=== PATIENT | female | born 1990 | race American Indian/Alaskan Native ===

== ENCOUNTER 2022-04-12 01:06 | Observation (INO) | payer OTHER, MEDICAID ==
[2022-04-12] MEDS ORDERED: SODIUM CHLORIDE 0.9% 1,000 ML IV STA ×3 (01:15→03:04)
[2022-04-12] MEDS ORDERED: HYDROmorphone 1 MG/ML CARPUJECT IVP STA ×2 (01:15→02:51)
[2022-04-12] MEDS ORDERED: KETOROLAC 30 MG/ML VIAL IVP STA (01:15)
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
[2022-04-12 01:58] LABS: HCG,QUALITATIVE BLOOD NEGATIVE
[2022-04-12 02:05] LABS: BASOPHILS # (AUTO) 0.1 10^3/uL (0.0-0.1); BASOPHILS % (AUTO) 0.9 %; EOSINOPHILS # (AUTO) 0.1 10^3/uL (0.0-0.7); EOSINOPHILS % (AUTO) 0.9 %; HCT - HEMATOCRIT 40.2 % (37.0-47.0); HGB - HEMOGLOBIN 12.9 g/dL (12.0-16.0); LYMPHOCYTES # (AUTO) 1.4 10^3/uL (1.5-3.5); MEAN CORPUSCULAR HEMOGLOBIN 30.4 pg (27.0-31.0); MEAN CORPUSCULAR HGB CONC 32.1 g/dL (32.0-36.0); MEAN CORPUSCULAR VOLUME 94.8 fL (81.0-99.0); MEAN PLATELET VOLUME 9.1 fL (7.9-10.8); MONOCYTES # (AUTO) 0.5 10^3/uL (0.0-1.0); MONOCYTES % (AUTO) 5.5 %; NEUTROPHILS # (AUTO) 6.2 10^3/uL (1.5-6.6); NEUTROPHILS % (AUTO) 75.5 %; PLT - PLATELET COUNT 322 10^3/uL (130-450); RED BLOOD COUNT 4.24 10^6/uL (4.20-5.40); RED CELL DISTRIBUTION WIDTH 14.6 % (12.0-15.0); WHITE BLOOD COUNT 8.2 x10^3/uL (4.8-10.8)
[2022-04-12] MEDS ORDERED: PROPOFOL 200 MG/20 ML VIAL IVP STA (02:09)
[2022-04-12 02:14] LABS: ALBUMIN 4.7 g/dL (3.2-5.5); ALBUMIN/GLOBULIN RATIO 1.3 (1.0-2.2); BILIRUBIN,TOTAL 0.3 mg/dL (0.2-1.0); CALCIUM 8.9 mg/dL (8.5-10.3); CREATININE 0.7 mg/dL (0.4-1.0); TOTAL PROTEIN 8.2 g/dL (6.7-8.2)
[2022-04-12] MEDS ORDERED: PROPOFOL 200 MG/20 ML VIAL IVP ONE (02:33)
[2022-04-12 02:55] LABS: B. PARAPERTUSSIS- RESP PCR PAN NOT DETECTED; B. PERTUSSIS- RESP PCR PANEL NOT DETECTED; C. PNEUMONIAE- RESP PCR PANEL NOT DETECTED; CORONAVIRUS 229E-RESP PCR NOT DETECTED; CORONAVIRUS HKU1-RESP PCR NOT DETECTED; CORONAVIRUS NL63-RESP PCR NOT DETECTED; CORONAVIRUS OC43-RESP PCR NOT DETECTED; HUMAN METAPNEUMOVIRUS NOT DETECTED; INFLUENZA A- RESP PCR PANEL NOT DETECTED; INFLUENZA B - RESP PCR PANEL NOT DETECTED; M. PNEUMONIAE- RESP PCR PANEL NOT DETECTED; PARAINFLUENZA VIRUS 1 NOT DETECTED; PARAINFLUENZA VIRUS 2 NOT DETECTED; PARAINFLUENZA VIRUS 3 NOT DETECTED; PARAINFLUENZA VIRUS 4 NOT DETECTED; RHINOVIRUS/ENTEROVIRUS NOT DETECTED; RSV- RESP PCR PANEL NOT DETECTED; SARS-CoV-2 -RESP PCR PANEL NOT DETECTED
[2022-04-12] MEDS: HYDROmorphone 1 MG/ML CARPUJECT IVP SCH ×7 (04:43→15:49)
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
--- NOTE | 2022-04-12 08:25 | XRAY Report ---
PROCEDURE: Chest 1 View X-Ray INDICATIONS: chest tube placement TECHNIQUE: One view of the chest was acquired. COMPARISON: Rib x-ray 04/12/2022 FINDINGS: Surgical changes and devices: Right chest tube is present overlying the right midlung. Lungs and pleura: There is persistent although less prominent appearance of pneumothorax. Mediastinum: Mediastinal contours appear normal. Heart size is normal. Bones and chest wall: No suspicious bony lesions. Likely right ninth rib fracture, better visualized on prior exam. Overlying soft tissues appear unremarkable. IMPRESSION: Minimal residual pneumothorax. Reviewed by: Vira Ely MD on 04/12/2022 8:23 AM PDT Approved by: Vira Ely MD on 04/12/2022 8:23 AM PDT Station ID: [id number]
[2022-04-12] MEDS ORDERED: ONDANSETRON 4 MG/2 ML VIAL IVP STA (08:49)
[2022-04-12] MEDS ORDERED: ACETAMINOPHEN 325 MG TABLET PO PRN (10:01)
[2022-04-12] MEDS ORDERED: DROPERIDOL 5 MG/2 ML VIAL IVP STA (10:12)
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
[2022-04-12] MEDS: SODIUM CHLORIDE FLUSH 0.9% 10 ML SYRINGE IVP SCH ×2 (15:49→23:38)
[2022-04-12] MEDS: HYDROcod/ACETAM 5/325 MG TABLET PO PRN (19:20)
[2022-04-12] MEDS: IBUPROFEN 600 MG TABLET PO PRN (19:20)
[2022-04-12] MEDS: HYDROmorphone 1 MG/ML CARPUJECT IVP PRN ×2 (20:02→23:37)
[2022-04-12] MEDS: SODIUM CHLORIDE FLUSH 0.9% 10 ML SYRINGE IVP PRN (20:03)
[2022-04-13] MEDS: SODIUM CHLORIDE FLUSH 0.9% 10 ML SYRINGE IVP PRN ×5 (02:12→12:06)
[2022-04-13] MEDS: HYDROmorphone 1 MG/ML CARPUJECT IVP PRN ×9 (02:12→21:15)
[2022-04-13] MEDS: HYDROcod/ACETAM 5/325 MG TABLET PO PRN (03:01)
[2022-04-13] MEDS: IBUPROFEN 600 MG TABLET PO PRN (03:02)
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
[2022-04-13] MEDS ORDERED: polyethylene glycoL 3350 17 GM PACKET PO PRN (08:07)
[2022-04-13] MEDS ORDERED: LIDOCAINE PATCH 5% TOP PRN (08:09)
[2022-04-13] MEDS: ONDANSETRON 4 MG/2 ML VIAL IVP PRN ×2 (08:24→14:50)
[2022-04-13] MEDS: ACETAMINOPHEN 325 MG TABLET PO SCH ×4 (08:27→21:09)
[2022-04-13] MEDS: FAMOTIDINE 20 MG TABLET PO SCH ×2 (08:27→21:09)
[2022-04-13] MEDS: traMADol 50 MG TABLET PO PRN ×3 (08:27→16:48)
[2022-04-13] MEDS: DOCUSATE SODIUM 100 MG CAPSULE PO SCH (08:27)
[2022-04-13] MEDS: SODIUM CHLORIDE FLUSH 0.9% 10 ML SYRINGE IVP SCH ×2 (08:28→17:42)
[2022-04-13] MEDS: KETOROLAC 30 MG/ML VIAL IVP SCH ×2 (12:06→19:09)
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
[2022-04-13] MEDS ORDERED: PROCHLORPERAZINE 10 MG/2 ML VIAL IVP PRN (17:32)
[2022-04-14] MEDS: KETOROLAC 30 MG/ML VIAL IVP SCH ×3 (00:04→12:22)
[2022-04-14] MEDS: SODIUM CHLORIDE FLUSH 0.9% 10 ML SYRINGE IVP SCH ×3 (00:05→16:23)
[2022-04-14] MEDS: ACETAMINOPHEN 325 MG TABLET PO SCH ×5 (00:05→16:22)
[2022-04-14] MEDS: SODIUM CHLORIDE FLUSH 0.9% 10 ML SYRINGE IVP PRN ×3 (02:01→15:02)
[2022-04-14] MEDS: HYDROmorphone 1 MG/ML CARPUJECT IVP PRN ×5 (02:01→15:01)
[2022-04-14] MEDS: traMADol 50 MG TABLET PO PRN ×2 (06:13→15:01)
--- NOTE | 2022-04-14 07:42 | PROVIDER PROGRESS NOTE ---
Subjective - General Admit Date: 04/12/22 Procedure Date: 04/12/22 Post Op Days: 2 Procedure Performed: Right thoracostomy tube - Review of Systems Wound/Incisions: positive: Dressing dry and intact Drain Type: Right Thoravent Drain Output Description: No air leak seen General: positive: No symptoms HEENT: positive: No symptoms Pulmonary: positive: No symptoms Cardiovascular: positive: No symptoms, Palpitations Gastrointestinal: positive: Constipation Objective - Patient Data Vital Signs: Vital Signs x48h Temp Pulse Resp BP Pulse Ox 04/14/22 05:00 98.2 F 70 18 99/57 L 98 04/13/22 23:45 98.4 F 71 18 101/61 96 Weight: Weight 04/12/22 04/13/22 04/14/22 23:59 23:59 23:59 Weight (kg) 70.307 kg Intake & Output: Intake and Output Totals x24h 04/12/22 04/13/22 04/14/22 23:59 23:59 23:59 Intake Total 3910 2830 800 Output Total 1150 3375 350 Balance 2760 -545 450 - Lab Results Lab Results: 04/12/22 01:24 04/12/22 01:24 - Current Medications Current Medications: Current Medications Generic Name Dose Route Start Last Admin Trade Name Freq PRN Reason Stop Dose Admin Acetaminophen 650 mg 04/13/22 09:00 04/14/22 05:45 Acetaminophen 325 Mg Tablet PO 650 mg Q4HR NALINI Administration Docusate Sodium 100 mg 04/13/22 09:00 04/13/22 08:27 Docusate Sodium 100 Mg Capsule PO 100 mg DAILY NALINI Administration Famotidine 20 mg 04/13/22 09:00 04/13/22 21:09 Famotidine 20 Mg Tablet PO 20 mg BID NALINI Administration Hydromorphone HCl 1 mg 04/12/22 17:20 04/14/22 06:56 Hydromorphone 1 Mg/Ml Carpuject IVP 1 mg Q2H PRN Administration PAIN Ketorolac Tromethamine 30 mg 04/13/22 12:00 04/14/22 05:45 Ketorolac 30 Mg/Ml Vial IVP 04/14/22 12:01 30 mg Q6HR NALINI Administration Ondansetron HCl 4 mg 04/13/22 08:08 04/13/22 14:50 Ondansetron 4 Mg/2 Ml Vial IVP 4 mg Q6HR PRN Administration Nausea / Vomiting Prochlorperazine Edisylate 10 mg 04/13/22 17:32 04/13/22 17:41 Prochlorperazine 10 Mg/2 Ml Vial IVP 10 mg Q6HR PRN Administration Nausea / Vomiting Sodium Chloride 10 ml 04/12/22 10:01 04/14/22 02:01 Sodium Chloride Flush 0.9% 10 Ml Syringe IVP 10 ml PRN PRN Administration NEEDED PER PROVIDER ORDERS Sodium Chloride 10 ml 04/12/22 17:00 04/14/22 00:05 Sodium Chloride Flush 0.9% 10 Ml Syringe IVP 10 ml 0100,0900,1700 NALINI Administration Tramadol HCl 50 mg 04/13/22 08:06 04/14/22 06:13 Tramadol 50 Mg Tablet PO 50 mg Q4HR PRN Administration PAIN - Physical Exam General Appearance: positive: No acute distress Eyes Bilateral: positive: Normal inspection Respiratory: positive: No respiratory distress, Breath sounds nml, Other (Mild right chest wall tenderness to palpation; No flail; Thoravent secured to right chest) Skin: positive: Other (Ecchymosis left forehead resolving) Neurologic/Psychiatric: positive: Oriented x3 ABX Reporting Has patient been on IV antibiotics over the past 48 hours?: No Impression/Plan - Problem List Problem List: Assessment: 1) Right traumatic pneumothorax. Clinically improved. I think it would be prudent to leave the Thoravent in until next Monday where she can be re-qi luated in the surgery office for possible removal. 2) Right 9th rib fracture - pain under better control with Tramadol/Tylenol 3) Constipation - persists Plan: 1) Discharge to home 2) Tramadol/Tylenol for chest wall pain control; MOM/Miralax for constipation 3) Follow-up Monday in the surgery clinic for possible Thoravent removal. 4) Off work for 10-14 days (note written) Cj Naranjo MD General Surgery Service
--- NOTE | 2022-04-14 07:49 | Discharge Plan ---
Discharge Plan Problem Reviewed?: Yes Disposition: Home, Self Care Condition: Good Diet: Regular Activity Restrictions: Activity as Tolerated Shower Restrictions: Yes (Try to keep Thoravent dry) Assessment: Assessment: 1) Right traumatic pneumothorax - resolving with pleural catheter/Thoravent device 2) Right 9th rib fracture - Pain under control with oral medication 3) Left forehead contusion - resolving 4) Constipation - on laxatives Additional Instructions or Follow Up instructions: Follow up in the General Surgery Clinic next Monday to determine if the chest catheter can be removed. If you have any trouble with the chest wall catheter before then, either call the surgery clinic or come to the ED for evaluation. No Smoking: If you smoke, Please STOP! Call for help. Follow-up with: Gee Nix MD [Provider Admit Priv/Credential] -
--- NOTE | 2022-04-14 08:06 | HISTORY & PHYSICAL EXAMINATION ---
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 : reports: None HEENT: reports: None Psych: reports: None Musculoskeletal: reports: None Derm: reports: Other MRSA Hx?: No - Family & Social History Living arrangement: At home - Substance History Use: Uses substance without health or social issues: Alcohol Abuse: Recurrent use of substance despite neg consequences: Alcohol Tobacco Details: E-Cigarettes, Other (Just quit smoking cigarettes for the second time.) - POLST POLST Status: Full Code Meds/Allgy - Home Medications Home Medications: Ambulatory Orders Medication Instructions Recorded Confirmed Acetaminophen [Tylenol] 650 mg PO Q4HR tab 04/14/22 Lidocaine Patch 5% [Lidoderm Patch] 1 patch TOP DAILY PRN patch 04/14/22 polyethylene glycoL 3350 [Miralax] 17 gm PO DAILY PRN packet 04/14/22 traMADol [Ultram] 50 mg PO Q4HR PRN #10 tab 04/14/22 - Allergies Allergies/Adverse Reactions: Allergies Allergy/AdvReac Type Severity Reaction Status Date / Time oxycodone Allergy Unknown Verified 04/12/22 01:15 Penicillins Allergy Unknown Verified 04/12/22 01:15 Skittles Allergy Hives Verified 04/12/22 17:32 Exam - Vital Signs Vital Signs: Vital Signs x48h Temp Pulse Resp BP Pulse Ox 04/14/22 05:00 98.2 F 70 18 99/57 L 98 Conclusion/Plan - Lab Results Lab results reviewed: Yes Fish Bones: 04/12/22 01:24 04/12/22 01:24
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
[2022-04-14] MEDS: FAMOTIDINE 20 MG TABLET PO SCH (09:06)
[2022-04-14] MEDS: DOCUSATE SODIUM 100 MG CAPSULE PO SCH (09:06)
[2022-04-14 15:33] VITALS: BP 109/71
== END 2022-04-14 16:31 | disposition home or self-care (01) ==
LOC: EDUNIT# → ED 01:06 → MS2 10:01
PROVIDERS: ADMIT Surgery; ATTEND Surgery
DX: S27.0XXA Traumatic pneumothorax, initial encounter (principal); S22.31XA Fracture of one rib, right side, initial encounter for closed fracture; S00.83XA Contusion of other part of head, initial encounter; Y04.2XXA Assault by strike against or bumped into by another person, initial encounter; Z20.822 Contact with and (suspected) exposure to COVID-19; F17.290 Nicotine dependence, other tobacco product, uncomplicated; K59.00 Constipation, unspecified
CPT/HCPCS: 32551; 36415; 70450; 71045; 71101; 80053; 80320; 83690; 84703; 85025; 87633; 96361; 96374; 96375; 96376; 99152; 99284; 99285; 99406; A9270; G0378; J1170

== ENCOUNTER → 2022-04-12 | Outpatient (CLI) | payer OTHER, MEDICAID | END | disposition critical access hospital (66) | LOC: EMS 00:42 | DX: R07.81 Pleurodynia (principal); R51.9 Headache, unspecified; Y04.2XXA Assault by strike against or bumped into by another person, initial encounter | CPT/HCPCS: A0425; A0427 ==

== ENCOUNTER 2022-06-05 20:49 | Outpatient (CLI) | payer OTHER, MEDICAID | END 2022-06-05 20:50 | disposition critical access hospital (66) | LOC: EMS 20:49 | DX: F10.129 Alcohol abuse with intoxication, unspecified (principal); S51.812A Laceration without foreign body of left forearm, initial encounter; X58.XXXA Exposure to other specified factors, initial encounter | CPT/HCPCS: A0425; A0429 ==

== ENCOUNTER 2022-06-05 21:07 | Emergency (ER) | payer OTHER, MEDICAID ==
[2022-06-05 21:30] VITALS: BP 133/92
--- NOTE | 2022-06-05 21:57 | ED Physician Documentation ---
History of Present Illness - Stated complaint Stated Complaint: WANTS DETOX - Chief complaint Chief Complaint: MHE - History obtained from History obtained from: Patient, EMS - Additonal information Additional information: 32-year-old woman presents brought in by EMS from an in she is staying at stating that she wants detox. On further questioning patient denies SI/HI/AVH but does state that she is incredibly lonely because she usually spends [place] with her children who are currently in [place]. She states she feels safe in the current place where she is residing. Does endorse drinking alcohol this evening. 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 : None HEENT: None Psych: None Musculoskeletal: None Derm: Other - Past Surgical History Past Surgical History: No - Present Medications Home Medications: Ambulatory Orders Medication Instructions Recorded Confirmed Acetaminophen [Tylenol] 650 mg PO Q4HR tab 04/14/22 Lidocaine Patch 5% [Lidoderm Patch] 1 patch TOP DAILY PRN patch 04/14/22 polyethylene glycoL 3350 [Miralax] 17 gm PO DAILY PRN packet 04/14/22 traMADol [Ultram] 50 mg PO Q4-6H #10 tablet 04/14/22 - Allergies Allergies/Adverse Reactions: Allergies Allergy/AdvReac Type Severity Reaction Status Date / Time oxycodone Allergy Unknown Verified 04/12/22 01:15 Penicillins Allergy Unknown Verified 04/12/22 01:15 Skittles Allergy Hives Verified 04/12/22 17:32 - Social History Does the pt smoke?: No Smoking Status: Current every day smoker Does the pt drink ETOH?: Yes Does the pt have substance abuse?: No - Immunizations Immunizations are current?: Yes - POLST POLST Status: Full Code PD ED PE NORMAL - Vitals Vital signs reviewed: Yes - General General: Alert and oriented X 3, No acute distress, Well developed/nourished - HEENT HEENT: Atraumatic, PERRL, EOMI - Neck Neck: Supple, no meningeal sign - Cardiac Cardiac: RRR - Respiratory Respiratory: No respiratory distress, Clear bilaterally - Abdomen Abdomen: Non tender, Non distended - Derm Derm: Normal color, Warm and dry - Extremities Extremities: No deformity - Neuro Neuro: No motor deficit, No sensory deficit - Psych Psych: Other (intermittently tearful. clinically sober ) Results - Vitals Vitals: Vital Signs - 24 hr 06/05/22 21:17 Temperature 36.3 C L Heart Rate 111 H Respiratory 18 Rate Blood Pressure 133/92 H O2 Saturation 98 Oxygen O2 Source Room air PD Medical Decision Making - ED course ED course: 32-year-old woman presents with depression and alcohol abuse. Ambulatory without difficulty. AO x3. Clinically sober. Safe to discharge home at this time. Denies SI HI AVH. Resources provided and return precautions given. Departure - Departure Disposition: Home, Self Care Clinical Impression: Alcohol abuse, Depression Condition: Stable Instructions: Alcoholism Get Help, ED Depression Comments: You were seen in the emergency department for depression and alcohol addiction. Please follow-up with the resources we provided and return to the emergency department between 9 AM and 5 PM for social work evaluation if you feel that you need it. Return to the emergency department if you have concerns that you are danger to yourself or others or if you do not feel safe. Please follow-up with your primary care provider
== END 2022-06-05 22:01 | disposition home or self-care (01) ==
LOC: EDUNIT# → EDBD → ED 21:07
DX: F32.A Depression, unspecified (principal); F10.10 Alcohol abuse, uncomplicated; F17.200 Nicotine dependence, unspecified, uncomplicated
CPT/HCPCS: 99283

== ENCOUNTER 2022-09-02 18:12 | Emergency (ER) | payer MEDICAID, OTHER ==
--- NOTE | 2022-09-02 18:51 | XRAY Report ---
PROCEDURE: Chest 2 View X-Ray INDICATIONS: pain, short of breath TECHNIQUE: 2 views of the chest were acquired. COMPARISON: 04/13/2022, 04/12/2022. FINDINGS: Surgical changes and devices: None. Lungs and pleura: No pleural effusions or pneumothorax. Streaky opacities can be seen at the lung b ases. Mediastinum: Mediastinal contours are normal. Heart size is normal. Bones and chest wall: No suspicious bony abnormalities. Soft tissues appear unremarkable. IMPRESSION: Likely atelectasis at the lung bases. No recurrent pneumothorax is seen. Reviewed by: Brian Stevens MD on 09/02/2022 5:50 PM AKDORINA Approved by: Brian Stevens MD on 09/02/2022 5:50 PM ALICE Station ID: [id number]
[2022-09-02] MEDS ORDERED: HYDROmorphone 1 MG/ML CARPUJECT IVP STA (19:02)
[2022-09-02] MEDS ORDERED: KETOROLAC 15 MG/ML VIAL IVP STA (19:02)
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
[2022-09-02 19:13] LABS: BASOPHILS # (AUTO) 0.1 10^3/uL (0.0-0.1); BASOPHILS % (AUTO) 1.3 %; EOSINOPHILS # (AUTO) 0.2 10^3/uL (0.0-0.7); EOSINOPHILS % (AUTO) 1.5 %; HGB - HEMOGLOBIN 13.3 g/dL (12.0-16.0); LYMPHOCYTES # (AUTO) 1.5 10^3/uL (1.5-3.5); LYMPHOCYTES % (AUTO) 14.3 %; MEAN CORPUSCULAR HEMOGLOBIN 30.6 pg (27.0-31.0); MEAN CORPUSCULAR HGB CONC 31.7 g/dL (32.0-36.0); MEAN CORPUSCULAR VOLUME 96.8 fL (81.0-99.0); MEAN PLATELET VOLUME 8.5 fL (7.9-10.8); MONOCYTES # (AUTO) 0.8 10^3/uL (0.0-1.0); MONOCYTES % (AUTO) 7.8 %; NEUTROPHILS # (AUTO) 7.8 10^3/uL (1.5-6.6); NEUTROPHILS % (AUTO) 74.8 %; PLT - PLATELET COUNT 487 10^3/uL (130-450); RED BLOOD COUNT 4.34 10^6/uL (4.20-5.40); RED CELL DISTRIBUTION WIDTH 13.9 % (12.0-15.0); WHITE BLOOD COUNT 10.5 x10^3/uL (4.8-10.8)
[2022-09-02] MEDS ORDERED: iohexoL-300 100 ML VIAL ONE (19:14)
[2022-09-02 19:25] LABS: ALBUMIN 4.2 g/dL (3.2-5.5); ALBUMIN/GLOBULIN RATIO 0.9 (1.0-2.2); BILIRUBIN,TOTAL 0.5 mg/dL (0.2-1.0); CALCIUM 9.1 mg/dL (8.5-10.3); CREATININE 0.4 mg/dL (0.4-1.0); ETOH - ETHANOL 171.9 mg/dL; POTASSIUM 4.1 mmol/L (3.5-5.0); TOTAL PROTEIN 8.9 g/dL (6.7-8.2)
[2022-09-02] MEDS ORDERED: diphenhydrAMINE INJ 50 MG/ML VIAL IVP STA (19:44)
[2022-09-02 19:53] LABS: BILIRUBIN,URINE NEGATIVE (NEGATIVE); GLUCOSE, URINE (UA) NEGATIVE (NEGATIVE); KETONES,URINE (UA) NEGATIVE (NEGATIVE); LEUKOCYTE ESTERASE, URINE NEGATIVE (NEGATIVE); NITRITE,URINE NEGATIVE (NEGATIVE); OCCULT BLOOD,URINE NEGATIVE (NEGATIVE); PROTEIN,URINE NEGATIVE (NEGATIVE); UROBILINOGEN,URINE 0.2 (NORMAL) E.U./dL (NORMAL)
[2022-09-02 19:54] LABS: CLARITY,URINE CLEAR (CLEAR)
[2022-09-02] MEDS ORDERED: iohexoL-300 100 ML VIAL IVP ONE (19:54)
[2022-09-02 19:56] LABS: HCG UR QUAL NEGATIVE
--- NOTE | 2022-09-02 20:24 | CT Report ---
PROCEDURE: ANGIO CHEST W/WO INDICATIONS: dyspnea, pe protocol CONTRAST: 100 ML OMNI 300 TECHNIQUE: After the administration of intravenous contrast, 2 mm axial images were acquired from the pulmonary apices to the posterior costophrenic angles during the arterial phase. In addition, 1 mm lung kernel and 5 mm soft tissue kernel reconstructions were performed. 3-dimensional coronal oblique maximum int ensity projection (MIP) reformats, 8 mm axial MIP, and 5 mm coronal and sagittal MPR reformats were t hen performed through the thorax. For radiation dose reduction, the following was used: automated exp osure control, adjustment of mA and/or kV according to patient size. COMPARISON: Chest x-ray 09/02/2022 FINDINGS: Image quality: Excellent. Pulmonary arteries: Pulmonary arteries are normal in size, and demonstrate no intraluminal filling d efects to suggest central pulmonary embolism. Lower Neck: No lymphadenopathy by size criteria. Thyroid: Visualized thyroid demonstrates no discrete nodules. Axillae: No lymphadenopathy by size criteria. Chest Wall: Unremarkable. Bones: Visualized osseous structures demonstrate no suspicious lesions. Lungs and Airways: There are patchy areas of consolidation in the lung bases involving the lower lobe s, medial right middle lobe, and medial left lingula. There are associated small clustered indistinct nodules. Mild bronchial wall thickening also demonstrated in the lower lobes with a few foci of mucu s plugging. The findings are consistent with multifocal pneumonia. The trachea and central airways ar e patent. Pleura: No pneumothorax or pleural effusions. Heart: Heart size is normal. No pericardial effusion. Thoracic Vessels: The thoracic aorta is normal in size. Mediastinum and Patti: No lymphadenopathy by size criteria. Esophagus: No wall thickening. No hiatal hernia. Abdomen: Visualized upper abdominal solid organs appear normal in the early arterial phase of enhanc ement. IMPRESSION: 1. No evidence of pulmonary embolism. 2. Bibasilar consolidation and clustered indistinct nodules most likely represent multifocal pneumoni a. Reviewed by: Brady Almonte MD on 09/02/2022 8:23 PM PDT Approved by: Brady Almonte MD on 09/02/2022 8:23 PM PDT Station ID: [id number]
[2022-09-02] MEDS ORDERED: HYDROcod/ACET 5/325 Prepack 4 PO STA (20:45)
[2022-09-02] MEDS ORDERED: DOXYCYCLINE 100 MG TABLET PO STA (20:45)
[2022-09-02 21:07] VITALS: BP 114/85
== END 2022-09-02 21:06 | disposition home or self-care (01) ==
LOC: ED 18:12
DX: J18.9 Pneumonia, unspecified organism (principal); F10.10 Alcohol abuse, uncomplicated; Y90.6 Blood alcohol level of 120-199 mg/100 ml; F17.200 Nicotine dependence, unspecified, uncomplicated
CPT/HCPCS: 36415; 71046; 71275; 80053; 80320; 81003; 81025; 85025; 96374; 96375; 99283; 99284; A9270; J1170; J1200; Q9967; 81001; 87086

== ENCOUNTER 2023-01-06 15:55 | Outpatient (CLI) | payer MEDICAID, OTHER | END 2023-01-06 23:59 | disposition critical access hospital (66) | LOC: EMS 15:55 | DX: S00.83XA Contusion of other part of head, initial encounter (principal); S01.511A Laceration without foreign body of lip, initial encounter; M79.632 Pain in left forearm; Y04.2XXA Assault by strike against or bumped into by another person, initial encounter | CPT/HCPCS: A0425; A0429; A0999 ==

== ENCOUNTER 2023-01-06 17:05 | Emergency (ER) | payer MEDICAID ==
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
[2023-01-06] MEDS ORDERED: HYDROmorphone 0.5 MG/0.5 ML SYRINGE IVP STA (17:15)
[2023-01-06] MEDS ORDERED: KETOROLAC 15 MG/ML VIAL IVP STA (17:15)
[2023-01-06] MEDS ORDERED: HYDROmorphone 1 MG/ML CARPUJECT IVP STA (18:07)
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
[2023-01-06 19:19] VITALS: BP 113/64
--- NOTE | 2023-01-06 19:24 | ED Physician Documentation ---
ED Addendum - Addendum Addendum: 01/06/23 19:[address] Zelaya at 6 PM shift change pending completion of CT imaging of the head, face, and neck. These were done and negative with the exception of concern for sinusitis. Patient was evaluated at bedside. She has no symptoms of sinusitis and as such I would not probably treat. She voiced no other concerns and has a safe place to go. Disposition: Discharged home Condition: Stable
== END 2023-01-06 19:31 | disposition home or self-care (01) ==
LOC: EDUNIT# → ED 17:05
DX: S00.83XA Contusion of other part of head, initial encounter (principal); F10.129 Alcohol abuse with intoxication, unspecified; S09.90XA Unspecified injury of head, initial encounter; S19.9XXA Unspecified injury of neck, initial encounter; Y04.2XXA Assault by strike against or bumped into by another person, initial encounter; F17.200 Nicotine dependence, unspecified, uncomplicated
CPT/HCPCS: 70450; 70486; 72125; 96374; 96376; 99283; 99284; J1170

== ENCOUNTER 2023-03-10 15:50 | Inpatient (IN) | payer MEDICAID ==
[2023-03-10] MEDS ORDERED: ONDANSETRON 4 MG/2 ML VIAL IVP STA (16:26)
[2023-03-10 16:32] LABS: BASOPHILS # (AUTO) 0.1 10^3/uL (0.0-0.1); BASOPHILS % (AUTO) 0.7 %; HGB - HEMOGLOBIN 16.6 g/dL (12.0-16.0); LYMPHOCYTES # (AUTO) 0.5 10^3/uL (1.5-3.5); LYMPHOCYTES % (AUTO) 4.4 %; MEAN CORPUSCULAR HEMOGLOBIN 30.3 pg (27.0-31.0); MEAN CORPUSCULAR HGB CONC 33.9 g/dL (32.0-36.0); MEAN CORPUSCULAR VOLUME 89.4 fL (81.0-99.0); MEAN PLATELET VOLUME 9.4 fL (7.9-10.8); MONOCYTES # (AUTO) 1.3 10^3/uL (0.0-1.0); MONOCYTES % (AUTO) 11.3 %; NEUTROPHILS # (AUTO) 9.2 10^3/uL (1.5-6.6); NEUTROPHILS % (AUTO) 83.2 %; PLT - PLATELET COUNT 427 10^3/uL (130-450); RED BLOOD COUNT 5.48 10^6/uL (4.20-5.40); RED CELL DISTRIBUTION WIDTH 14.6 % (12.0-15.0); WHITE BLOOD COUNT 11.1 x10^3/uL (4.8-10.8)
[2023-03-10] MEDS ORDERED: BUPRENORPHINE 0.3 MG/ML VIAL IVP ONE (16:40)
--- NOTE | 2023-03-10 16:41 | ED Physician Documentation ---
History of Present Illness - Stated complaint Stated Complaint: NAUSEA,VOMITING - Chief complaint Chief Complaint: Abd Pain - History obtained from History obtained from: Patient - Additonal information Additional information: 32-year-old woman presents withdrawing from fentanyl and requesting detox. Last use earlier today. She is vomiting with stomach pain and headache. She has been using for 3 weeks straight. 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 : None HEENT: None Psych: None Musculoskeletal: None Derm: Other - Past Surgical History Past Surgical History: No - Present Medications Home Medications: Ambulatory Orders Medication Instructions Recorded Confirmed Acetaminophen [Tylenol] 650 mg PO Q4HR tab 04/14/22 Lidocaine Patch 5% [Lidoderm Patch] 1 patch TOP DAILY PRN patch 04/14/22 polyethylene glycoL 3350 [Miralax] 17 gm PO DAILY PRN packet 04/14/22 traMADol [Ultram] 50 mg PO Q4-6H #10 tablet 04/14/22 Cefdinir 300 mg PO BID #20 cap 09/02/22 Doxycycline [Vibramycin] 100 mg PO BID #14 tablet 09/02/22 HYDROcod/ACETAM 5/325 [[place] 5/325] 1 - 2 tab PO Q6H PRN #7 tablet 09/02/22 - Allergies Allergies/Adverse Reactions: Allergies Allergy/AdvReac Type Severity Reaction Status Date / Time oxycodone Allergy Unknown Verified 09/02/22 18:22 Penicillins Allergy Unknown Verified 09/02/22 18:22 Skittles Allergy Hives Verified 09/02/22 18:22 - Social History Does the pt smoke?: No Smoking Status: Current every day smoker Does the pt drink ETOH?: Yes Does the pt have substance abuse?: No - Immunizations Immunizations are current?: Yes - POLST Patient has POLST: No POLST Status: Full Code PD ED PE NORMAL - Vitals Vital signs reviewed: Yes - General General: Other (Uncomfortable with dilated pupils and retching) - HEENT HEENT: EOMI - Neck Neck: Supple, no meningeal sign, No bony TTP - Abdomen Abdomen: Non tender - Neuro Neuro: Alert and oriented X 3, Normal speech Results - Vitals Vitals: Vital Signs - 24 hr 03/10/23 16:16 Temperature 36.5 C Heart Rate 100 Respiratory 20 Rate Blood Pressure 125/78 O2 Saturation 97 Oxygen O2 Source Room air - Labs Labs: Laboratory Tests 03/10/23 03/10/23 03/10/23 16:28 16:28 16:54 WBC 11.1 H RBC 5.48 H Hgb 16.6 H Hct 49.0 H MCV 89.4 MCH 30.3 MCHC 33.9 RDW 14.6 Plt Count 427 MPV 9.4 Neut # (Auto) 9.2 H Lymph # (Auto) 0.5 L [place] # (Auto) 1.3 H Eos # (Auto) 0.0 Baso # (Auto) 0.1 Absolute Nucleated RBC 0.00 Nucleated RBC % 0.0 Sodium Not Reportable 131 L Potassium Not Reportable 2.6 L Chloride Not Reportable 61 L* Carbon Dioxide Not Reportable > 45 H* Anion Gap Not Reportable TNP BUN Not Reportable 54 H Creatinine Not Reportable 3.4 H Estimated GFR (MDRD) Not Reportable 16 L Glucose Not Reportable 125 H Calcium Not Reportable 11.1 H Magnesium Total Bilirubin Not Reportable 0.6 AST Not Reportable 22 ALT Not Reportable 13 Alkaline Phosphatase Not Reportable 62 Total Protein Not Reportable 9.4 H Albumin TNP 5.7 H Globulin Not Reportable 3.7 Albumin/Globulin Ratio Not Reportable 1.5 Lipase TNP 38 Ethyl Alcohol TNP < 10.0 03/10/23 16:54 WBC RBC Hgb Hct MCV MCH MCHC RDW Plt Count MPV Neut # (Auto) Lymph # (Auto) [place] # (Auto) Eos # (Auto) Baso # (Auto) Absolute Nucleated RBC Nucleated RBC % Sodium Potassium Chloride Carbon Dioxide Anion Gap BUN Creatinine Estimated GFR (MDRD) Glucose Calcium Magnesium 2.5 H Total Bilirubin AST ALT Alkaline Phosphatase Total Protein Albumin Globulin Albumin/Globulin Ratio Lipase Ethyl Alcohol Procedures - General procedure General procedure: She was difficult for IV access, she had a small IV in her hand. She does have a history of IVDU. I personally placed a long 22-gauge IV in the right brachial vein using real-time ultrasound guidance. PD Medical Decision Making - ED course ED course: 32-year-old woman presents undergoing fentanyl withdrawal. She is vomiting and miserable. Vital signs show mild resting tachycardia, otherwise unremarkable. Examination is noncontributory. Initial labs with significant electrolyte abnormalities that I thought were severe enough to merit a redraw. They were redrawn her CMP is notable for significant hypokalemia, hyponatremia, profound hypochloremia, acute renal failure noting her baseline creatinine is in the 0.5 range. Given the above we will fluid resuscitate her and bring her into the hospital for resolution of her electrolyte and kidney dysfunction. Spoke with Dr. Saini for same at 5:24 PM. She was medicated initially with buprenorphine and Zofran IV without relief and this was followed by Dilaudid and Ativan. Departure - Departure Disposition: 66 [facility] DC/Xfer Clinical Impression: Narcotic withdrawal, Acute renal failure, Hypochloremia, Hypokalemia, Hyponatremia Condition: Serious Forms: PCP List
[2023-03-10 17:13] LABS: ALBUMIN 5.7 g/dL (3.2-5.5); ETOH - ETHANOL < 10.0 mg/dL; LIPASE 38 U/L (11-82)
[2023-03-10 17:16] LABS: ALBUMIN/GLOBULIN RATIO 1.5 (1.0-2.2); ALKALINE PHOSPHATASE 62 IU/L (42-121); ALT ALANINE AMINOTRANSFERASE 13 IU/L (10-60); AST ASPARTATE AMINOTRANSFERASE 22 IU/L (10-42); BILIRUBIN,TOTAL 0.6 mg/dL (0.2-1.0); BUN - BLOOD UREA NITROGEN 54 mg/dL (6-20); CALCIUM 11.1 mg/dL (8.5-10.3); CARBON DIOXIDE - CO2 > 45 mmol/L (21-32); CHLORIDE 61 mmol/L (101-111); CREATININE 3.4 mg/dL (0.6-1.3); GFR - MDRD 16 (>89); GLUCOSE 125 mg/dL (74-104); POTASSIUM 2.6 mmol/L (3.5-4.5); SODIUM 131 mmol/L (135-145); TOTAL PROTEIN 9.4 g/dL (6.4-8.9)
[2023-03-10] MEDS ORDERED: SODIUM CHLORIDE 0.9% 1,000 ML IV STA (17:17)
[2023-03-10] MEDS ORDERED: LORazepam 2 MG/ML VIAL IVP STA (17:23)
[2023-03-10] MEDS ORDERED: HYDROmorphone 2 MG/ML VIAL IVP STA (17:28)
[2023-03-10] MEDS: POTASSIUM CHLOR 10 MEQ/100 ML 10 MEQ/100 ML BAG IV SCH ×4 (17:50→21:44)
[2023-03-10] MEDS ORDERED: ACETAMINOPHEN 325 MG TABLET PO PRN (17:50)
--- NOTE | 2023-03-10 17:58 | HISTORY & PHYSICAL EXAMINATION ---
Chief Complaint - Chief Complaint Chief Complaint: Intractable nausea vomiting, intractable abdominal pain, poor oral intake i History of Present Illness - Admitted From Admitted From:: ED - History Obtained From Records Reviewed: Yes History obtained from: ED sign out and patient - History of Present Illness HPI Comment/Other: A 32 years old female without significant medical history, however with substance dependent presented to the ED for intractable nausea vomiting, abdominal pain for the past 3 weeks. Patient reports she has been using fentanyl in the past 3 weeks, unable to eat properly, with significant nausea vomiting and abdominal pain. She presented to the ED for detoxification .At time of ED presentation, portion of patient vital signs were within normal limits except mild tachycardia of heart rate 100, labs significant with severe hypokalemia of 2.6, high pole chloride 77. Patient is given IV fluid, IV potassium admitted to [facility] for further management. 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 : reports: None HEENT: reports: None Psych: reports: None, Other (Substance abuse) Musculoskeletal: reports: None Derm: reports: Other MRSA Hx?: No - Substance History Use: Uses substance without health or social issues: Alcohol - POLST Patient has POLST: No POLST Status: Full Code Meds/Allgy - Home Medications Home Medications: Ambulatory Orders Medication Instructions Recorded Confirmed Acetaminophen [Tylenol] 650 mg PO Q4HR tab 04/14/22 Lidocaine Patch 5% [Lidoderm Patch] 1 patch TOP DAILY PRN patch 04/14/22 polyethylene glycoL 3350 [Miralax] 17 gm PO DAILY PRN packet 04/14/22 traMADol [Ultram] 50 mg PO Q4-6H #10 tablet 04/14/22 Cefdinir 300 mg PO BID #20 cap 09/02/22 Doxycycline [Vibramycin] 100 mg PO BID #14 tablet 09/02/22 HYDROcod/ACETAM 5/325 [[place] 5/325] 1 - 2 tab PO Q6H PRN #7 tablet 09/02/22 - Allergies Allergies/Adverse Reactions: Allergies Allergy/AdvReac Type Severity Reaction Status Date / Time oxycodone Allergy Unknown Verified 09/02/22 18:22 Penicillins Allergy Unknown Verified 09/02/22 18:22 Skittles Allergy Hives Verified 09/02/22 18:22 Review of Systems - Constitutional Constitutional: reports: Fatigue, Malaise. denies: Fever, Chills - Eyes Eyes: denies: Blurred vision, Dipolpia - Ears, Nose & Throat Ears, Nose & Throat: denies: Nasal congestion, Sore throat - Cardiovascular Cariovascular: denies: Palpitations, Chest pain - Respiratory Respiratory: denies: Cough, Wheezing - Gastrointestinal Gastrointestinal: reports: Abdominal pain, Nausea, Vomiting. denies: Diarrhea, Bloody stools - Genitourinary Genitourinary: denies: Dysuria, Frequency, Urgency - Musculoskeletal Musculoskeletal: denies: Muscle pain, Joint pain - Integumentary Integumentary: denies: Rash - Neurological Neurological: denies: Focal weakness - Psychiatric Psychiatric: reports: Anxiety - Endocrine Endocrine: denies: Polyuria, Polydypsia - Hematologic/Lymphatic Hematologic/Lymphatic: denies: Anemia Prior Level of Functionality: Independent Exam - Vital Signs Reviewed Vital Signs: Yes Vital Signs: Vital Signs x48h Temp Pulse Resp BP Pulse Ox 03/10/23 16:16 36.5 C 100 20 125/78 97 - Physical Exam General Appearance: positive: Moderate distress (Due to discomfort) Eyes Bilateral: positive: Normal inspection (Wearing sunglasses in the room) ENT: positive: ENT inspection nml Neck: positive: Nml inspection, No JVD Respiratory: positive: Chest non-tender, No respiratory distress. negative: Wheezes, Rales, Rhonchi Cardiovascular: positive: Regular rate & rhythm Peripheral Pulses: positive: 2+ Abdomen: positive: Tenderness, Guarding. negative: Rebound Extremities: negative: No pedal edema Neurologic/Psychiatric: positive: Oriented x3 Conclusion/Plan - Problem List (1) Hypokalemia Conclusion/Plan: Related to poor oral intake intractable nausea vomiting Give IV potassium, follow-up at 9 PM, patient may need more IV potassium replenishment Please repeat same dose of IV potassium for Additional 40 mEq, next check will be tomorrow a.m. lab (2) Hypochloremia Conclusion/Plan: give IV normal saline (3) Acute renal failure Conclusion/Plan: Its prerenal, give IV fluid, monitoring urine output, and renal function (4) Narcotic withdrawal Conclusion/Plan: Fentanyl abuser Monitoring symptoms, give Ativan as needed Supportive care - Lab Results Lab results reviewed: Yes Fish Bones: 03/10/23 16:28 03/10/23 16:54
[2023-03-10] MEDS: NS W/20 MEQ KCL 1,000 ML IV SCH (19:44)
[2023-03-10] MEDS: HYDROmorphone 0.5 MG/0.5 ML SYRINGE IVP PRN (19:51)
[2023-03-10] MEDS: SODIUM CHLORIDE FLUSH 0.9% 10 ML SYRINGE IVP PRN ×2 (19:52→20:28)
[2023-03-10] MEDS: PROCHLORPERAZINE 10 MG/2 ML VIAL IVP PRN (20:28)
[2023-03-10 21:34] LABS: BUN - BLOOD UREA NITROGEN 55 mg/dL (6-20); CALCIUM 9.5 mg/dL (8.5-10.3); CARBON DIOXIDE - CO2 > 45 mmol/L (21-32); CHLORIDE 71 mmol/L (101-111); GFR - MDRD 18 (>89); GLUCOSE 106 mg/dL (74-104); POTASSIUM 2.9 mmol/L (3.5-4.5); SODIUM 131 mmol/L (135-145)
[2023-03-10] MEDS ORDERED: NICOTINE 21 MG PATCH TOP ONE (21:56)
[2023-03-10] MEDS: FAMOTIDINE 20 MG TABLET PO SCH (22:15)
[2023-03-10] MEDS: NICOTINE 21 MG PATCH TOP SCH (22:15)
[2023-03-11] MEDS: SODIUM CHLORIDE FLUSH 0.9% 10 ML SYRINGE IVP SCH ×3 (00:20→16:09)
[2023-03-11] MEDS: NS W/20 MEQ KCL 1,000 ML IV SCH ×2 (04:58→14:23)
[2023-03-11] MEDS: ONDANSETRON ODT 4 MG TABLET TL PRN ×2 (04:59→23:37)
[2023-03-11] MEDS: HYDROmorphone 0.5 MG/0.5 ML SYRINGE IVP PRN ×6 (05:00→21:12)
[2023-03-11 05:13] LABS: MUDS CUTOFF CONCENTRATIONS CUTOFF CONC BELOW:
[2023-03-11 05:15] LABS: GLUCOSE, URINE (UA) NEGATIVE (NEGATIVE); KETONES,URINE (UA) 15 mg/dL (NEGATIVE); LEUKOCYTE ESTERASE, URINE NEGATIVE (NEGATIVE); NITRITE,URINE NEGATIVE (NEGATIVE); OCCULT BLOOD,URINE NEGATIVE (NEGATIVE); PH,URINE 6.5 PH (5.0-7.5); PROTEIN,URINE 30 mg/dL (NEGATIVE); UROBILINOGEN,URINE 0.2 (NORMAL) E.U./dL (NORMAL)
[2023-03-11 05:17] LABS: CLARITY,URINE SL. CLOUDY (CLEAR)
[2023-03-11 05:20] LABS: WBC,URINE 0-3 /HPF (0-5)
[2023-03-11 05:21] LABS: BACTERIA,URINE Many /HPF (None Seen); BILIRUBIN,URINE NEGATIVE (NEGATIVE); HCG UR QUAL NEGATIVE; ICTOTEST,URINE NEGATIVE; MUCUS,URINE Few Strands; RBC,URINE 0-5 /HPF (0-5); SQUAMOUS EPITHELIAL CELL,UR FEW Squamous (<= Few)
[2023-03-11 05:29] LABS: AMPHETAMINE SCREEN,URINE NEGATIVE (NEGATIVE); BARBITURATE SCREEN,UR NEGATIVE (NEGATIVE); BENZODIAZEPINES SCREEN, URINE POSITIVE (NEGATIVE); COCAINE SCREEN URINE NEGATIVE (NEGATIVE); METHADONE SCREEN, URINE NEGATIVE (NEGATIVE); METHAMPHETAMINES SCREEN, URINE NEGATIVE (NEGATIVE); OPIATE SCREEN, URINE POSITIVE (NEGATIVE); OXYCODONE SCREEN, URINE NEGATIVE (NEGATIVE); PROPOXYPHENE SCREEN, URINE NEGATIVE (NEGATIVE); THC CANNABINOID SCREEN, URINE NEGATIVE (NEGATIVE); TRICYCLIC ANTIDEPRESSANT,URINE NEGATIVE (NEGATIVE)
[2023-03-11] MEDS: HYDROcod/ACETAM 10 MG/325 MG TABLET PO PRN ×5 (05:48→23:45)
[2023-03-11 06:03] LABS: BASOPHILS # (AUTO) 0.1 10^3/uL (0.0-0.1); BASOPHILS % (AUTO) 1.1 %; EOSINOPHILS # (AUTO) 0.1 10^3/uL (0.0-0.7); EOSINOPHILS % (AUTO) 1.1 %; HCT - HEMATOCRIT 39.3 % (37.0-47.0); HGB - HEMOGLOBIN 13.1 g/dL (12.0-16.0); LYMPHOCYTES # (AUTO) 1.1 10^3/uL (1.5-3.5); LYMPHOCYTES % (AUTO) 12.9 %; MEAN CORPUSCULAR HEMOGLOBIN 30.5 pg (27.0-31.0); MEAN CORPUSCULAR HGB CONC 33.3 g/dL (32.0-36.0); MEAN CORPUSCULAR VOLUME 91.6 fL (81.0-99.0); MEAN PLATELET VOLUME 9.7 fL (7.9-10.8); MONOCYTES % (AUTO) 12.3 %; NEUTROPHILS # (AUTO) 6.1 10^3/uL (1.5-6.6); NEUTROPHILS % (AUTO) 72.4 %; PLT - PLATELET COUNT 327 10^3/uL (130-450); RED BLOOD COUNT 4.29 10^6/uL (4.20-5.40); RED CELL DISTRIBUTION WIDTH 14.6 % (12.0-15.0); WHITE BLOOD COUNT 8.4 x10^3/uL (4.8-10.8)
[2023-03-11 06:24] LABS: CALCIUM 9.6 mg/dL (8.5-10.3); CREATININE 2.7 mg/dL (0.6-1.3); POTASSIUM 2.7 mmol/L (3.5-4.5)
--- NOTE | 2023-03-11 09:18 | PROVIDER PROGRESS NOTE ---
Assessment/Plan - Problem List (1) Hypokalemia Assessment/Plan: Very difficult to replenish., Patient was receiving IV potassium from the time of admission, potassium is still two-point 7 in the morning lab. Patient had 1 episode of vomiting today, and not able to tolerate much of oral intake. With such a low potassium level patient can have high risk for any arrhythmia, even lethal arrhythmia Give IV 60 mEq, recheck in p.m. May need to have more potassium IV Telemetry has no events. (2) Hypochloremia Assessment/Plan: Chloride improved a little bit however it is only 77 today. Continue with IV fluid Recheck in p.m. (3) Acute renal failure Assessment/Plan: Renal function improved some, potassium 2.7 today, Continue with IV fluid, recheck renal function. Patient still appears to be prerenal. However with difficulty of replenish her potassium. Urine electrolytes check is ordered (4) Narcotic withdrawal Assessment/Plan: Patient still has nausea, unable to eat We will give Ativan as needed Start to give gabapentin to see if it helps with patient - Current Meds Current Meds: Current Medications Generic Name Dose Route Start Last Admin Trade Name Freq PRN Reason Stop Dose Admin Hydrocodone Bitart/Acetaminophen 1 tab 03/10/23 17:50 03/11/23 05:48 Hydrocod/Acetam 10 Mg/325 Mg Tablet PO 1 tab Q4HR PRN Administration Pain 8 to 10 Famotidine 20 mg 03/10/23 22:00 03/10/23 22:15 Famotidine 20 Mg Tablet PO 20 mg BID NALINI Administration Hydromorphone HCl 0.5 mg 03/10/23 17:50 03/11/23 08:36 Hydromorphone 0.5 Mg/0.5 Ml Syringe IVP 0.5 mg Q2H PRN Administration Pain 8 to 10 Potassium Chloride/Sodium Chloride 1,000 mls @ 100 mls/hr 03/10/23 18:00 03/11/23 04:58 Normal Saline 0.9% W/20 Meq Kcl IV 100 mls/hr .Q10H NALINI Administration Nicotine 1 patch 03/10/23 23:00 03/10/23 22:15 Nicotine 21 Mg Patch TOP 1 patch DAILY NALINI Administration Ondansetron HCl 4 mg 03/10/23 17:50 03/11/23 04:59 Ondansetron Odt 4 Mg Tablet TL 4 mg Q6HR PRN Administration Nausea / Vomiting Prochlorperazine Edisylate 10 mg 03/10/23 17:50 03/10/23 20:28 Prochlorperazine 10 Mg/2 Ml Vial IVP 10 mg Q6HR PRN Administration Nausea / Vomiting Sodium Chloride 10 ml 03/10/23 17:50 03/10/23 20:28 Sodium Chloride Flush 0.9% 10 Ml Syringe IVP 10 ml PRN PRN Administration NEEDED PER PROVIDER ORDERS Sodium Chloride 10 ml 03/11/23 01:00 03/11/23 05:00 Sodium Chloride Flush 0.9% 10 Ml Syringe IVP 10 ml 0100,0900,1700 NALINI Administration - Lab Result Fish Bone Diagrams: 03/11/23 05:35 03/11/23 05:35 - Additional Planning My Orders: My Active Orders 03/10/23 Dinner Regular Diet [DIET] 03/10/23 17:50 Telemetry (24 Hour) [RC] Q4HR Acetaminophen [Tylenol] 650 mg PO Q4HR PRN HYDROcodone/ACET 10/325 [[place] 10 mg/325 mg] 1 tab PO Q4HR PRN HYDROmorphone 0.5MG SYRINGE [Dilaudid 0.5MG Syringe] 0.5 mg IVP Q2H PRN Ondansetron Inj [Zofran Inj] 4 mg IVP Q6HR PRN Ondansetron Odt [Zofran Odt] 4 mg TL Q6HR PRN Prochlorperazine Inj [Compazine Inj] 10 mg IVP Q6HR PRN Sodium Chloride Flush 0.9% [Normal Saline Flush 0.9%] 10 ml IVP PRN PRN 03/10/23 17:55 Activity Orders [RC] Q2HR IO [RC] IOSHIFT Incentive Spirometry - RT [RC] TID Initiate Bowel Care Protocol [RC] .protocol Initiate Line Care Protocol [RC] QSHIFT Initiate Personal Care Protoco [RC] .protocol Oxygen Therapy [RC] .PRN Vital Signs [RC] 0800,1600,0000 Code Status [OTHERS] Routine Condition of Patient [OTHERS] Routine DVT Prophylaxis [OTHERS] Routine 03/10/23 18:00 Ns W/20 Meq KCl [Normal Saline 0.9% W/20 Meq KCl] 1,000 ml IV 100 mls/hr 03/10/23 19:02 LORazepam INJ [Ativan Inj (Vial)] 0.5 mg IVP Q2H PRN 03/10/23 20:07 Tobacco Cessation [RC] .ONCE 03/11/23 01:00 Sodium Chloride Flush 0.9% [Normal Saline Flush 0.9%] 10 ml IVP 0100,0900,1700 03/11/23 09:00 Docusate Sodium 250Mg Capsule [Colace 250Mg Capsule] 250 - 500 mg PO DAILY Enoxaparin [Lovenox] 40 mg SUBQ DAILY Senna [Senokot] 8.6 - 17.2 mg PO DAILY polyethylene glycoL 3350 [Miralax] 17 gm PO DAILY 03/12/23 05:00 BMP - BASIC METABOLIC PANEL [CHEM] DAILYLAB CBC [CBC - COMP BLD CT W/AUTO DIFF] [HEME] DAILYLAB 03/13/23 05:00 BMP - BASIC METABOLIC PANEL [CHEM] DAILYLAB CBC [CBC - COMP BLD CT W/AUTO DIFF] [HEME] DAILYLAB 03/14/23 05:00 BMP - BASIC METABOLIC PANEL [CHEM] DAILYLAB CBC [CBC - COMP BLD CT W/AUTO DIFF] [HEME] DAILYLAB 03/15/23 05:00 BMP - BASIC METABOLIC PANEL [CHEM] DAILYLAB CBC [CBC - COMP BLD CT W/AUTO DIFF] [HEME] DAILYLAB Subjective - Subjective Patient Reports: Feeling Better (Still has nausea, generalized the pain. However does feel improved some. She is not wearing sunglasses anymore in the room.) Objective Vital Signs: Vital Signs - 24 hr 03/10/23 03/10/23 03/11/23 16:16 19:00 00:15 Temperature 36.5 C 36.4 C L 36.6 C Heart Rate 100 Heart Rate [ 75 77 Brachial] Respiratory 20 16 16 Rate Blood Pressure 125/78 Blood Pressure 128/88 H 115/78 [Left Brachial artery] O2 Saturation 97 95 94 03/11/23 03/11/23 05:15 08:25 Temperature 36.5 C 36.6 C Heart Rate Heart Rate [ 87 67 Brachial] Respiratory 18 16 Rate Blood Pressure Blood Pressure 117/78 115/67 [Left Brachial artery] O2 Saturation 95 93 Oxygen O2 Source Room air I&O (Last 24 Hrs): Intake and Output Totals x24h 03/09/23 03/10/23 03/11/23 23:59 23:59 23:59 Intake Total 1135 793.333 Output Total 150 600 Balance 985 193.333 General: Alert, Oriented x3, Mild distress HEENT: Atraumatic, PERRLA, EOMI Neck: Supple, No JVD Neuro: Alert, Non Focal, CN 2-12 Grossly Intact Cardiovascular: Regular rate Respiratory: Breath sounds nml Abdomen: Normal bowel sounds, Soft Extremities: No clubbing, No edema - Results Results: Laboratory Results WBC 8.4 x10^3/uL (4.8-10.8) 03/11/23 05:35 RBC 4.29 10^6/uL (4.20-5.40) 03/11/23 05:35 Hgb 13.1 g/dL (12.0-16.0) 03/11/23 05:35 Hct 39.3 % (37.0-47.0) 03/11/23 05:35 MCV 91.6 fL (81.0-99.0) 03/11/23 05:35 MCH 30.5 pg (27.0-31.0) 03/11/23 05:35 MCHC 33.3 g/dL (32.0-36.0) 03/11/23 05:35 RDW 14.6 % (12.0-15.0) 03/11/23 05:35 Plt Count 327 10^3/uL (130-450) 03/11/23 05:35 MPV 9.7 fL (7.9-10.8) 03/11/23 05:35 Neut # (Auto) 6.1 10^3/uL (1.5-6.6) 03/11/23 05:35 Lymph # (Auto) 1.1 10^3/uL (1.5-3.5) L 03/11/23 05:35 Saunders # (Auto) 1.0 10^3/uL (0.0-1.0) 03/11/23 05:35 Eos # (Auto) 0.1 10^3/uL (0.0-0.7) 03/11/23 05:35 Baso # (Auto) 0.1 10^3/uL (0.0-0.1) 03/11/23 05:35 Absolute Nucleated RBC 0.00 x10^3/uL 03/11/23 05:35 Nucleated RBC % 0.0 /100WBC 03/11/23 05:35 Sodium 130 mmol/L (135-145) L 03/11/23 05:35 Potassium 2.7 mmol/L (3.5-4.5) L 03/11/23 05:35 Chloride 77 mmol/L (101-111) L* 03/11/23 05:35 Carbon Dioxide 42 mmol/L (21-32) H* 03/11/23 05:35 Anion Gap 11.0 (6-13) 03/11/23 05:35 BUN 51 mg/dL (6-20) H 03/11/23 05:35 Creatinine 2.7 mg/dL (0.6-1.3) H 03/11/23 05:35 Estimated GFR (MDRD) 21 (>89) L 03/11/23 05:35 Glucose 87 mg/dL (74-104) 03/11/23 05:35 Calcium 9.6 mg/dL (8.5-10.3) 03/11/23 05:35 Magnesium 2.5 mg/dL (1.7-2.3) H 03/10/23 16:54 Total Bilirubin 0.6 mg/dL (0.2-1.0) 03/10/23 16:54 AST 22 IU/L (10-42) 03/10/23 16:54 ALT 13 IU/L (10-60) 03/10/23 16:54 Alkaline Phosphatase 62 IU/L (42-121) 03/10/23 16:54 Total Protein 9.4 g/dL (6.4-8.9) H 03/10/23 16:54 Albumin 5.7 g/dL (3.2-5.5) H 03/10/23 16:54 Globulin 3.7 g/dL (2.1-4.2) 03/10/23 16:54 Albumin/Globulin Ratio 1.5 (1.0-2.2) 03/10/23 16:54 Lipase 38 U/L (11-82) 03/10/23 16:54 Urine Color YELLOW 03/10/23 04:59 Urine Clarity SL. CLOUDY (CLEAR) 03/10/23 04:59 Urine pH 6.5 PH (5.0-7.5) 03/10/23 04:59 Ur Specific [place] 1.020 (1.002-1.030) 03/10/23 04:59 Urine Protein 30 mg/dL (NEGATIVE) H 03/10/23 04:59 Urine Glucose (UA) NEGATIVE mg/dL (NEGATIVE) 03/10/23 04:59 Urine Ketones 15 mg/dL (NEGATIVE) H 03/10/23 04:59 Urine Occult Blood NEGATIVE (NEGATIVE) 03/10/23 04:59 Urine Nitrite NEGATIVE (NEGATIVE) 03/10/23 04:59 Urine Bilirubin NEGATIVE (NEGATIVE) 03/10/23 04:59 Urine Urobilinogen 0.2 (NORMAL) E.U./dL (NORMAL) 03/10/23 04:59 Ur Leukocyte Esterase NEGATIVE (NEGATIVE) 03/10/23 04:59 Urine RBC 0-5 /HPF (0-5) 03/10/23 04:59 Urine WBC 0-3 /HPF (0-5) 03/10/23 04:59 Ur Squamous Epith Cells FEW Squamous (<= Few) 03/10/23 04:59 Urine Bacteria Many /HPF (None Seen) H 03/10/23 04:59 Urine Mucus Few Strands 03/10/23 04:59 Ur Microscopic Review INDICATED 03/10/23 04:59 Urine Culture Comments NOT INDICATED 03/10/23 04:59 Urine HCG, Qual NEGATIVE 03/10/23 04:59 Urine Opiates Screen POSITIVE (NEGATIVE) H 03/10/23 04:59 Ur Oxycodone Screen NEGATIVE (NEGATIVE) 03/10/23 04:59 Urine Methadone Screen NEGATIVE (NEGATIVE) 03/10/23 04:59 Ur Propoxyphene Screen NEGATIVE (NEGATIVE) 03/10/23 04:59 Ur Barbiturates Screen NEGATIVE (NEGATIVE) 03/10/23 04:59 Ur Tricyclics Screen NEGATIVE (NEGATIVE) 03/10/23 04:59 Ur Phencyclidine Scrn NEGATIVE (NEGATIVE) 03/10/23 04:59 Ur Amphetamine Screen NEGATIVE (NEGATIVE) 03/10/23 04:59 U Methamphetamines Scrn NEGATIVE (NEGATIVE) 03/10/23 04:59 U Benzodiazepines Scrn POSITIVE (NEGATIVE) H 03/10/23 04:59 Urine Cocaine Screen NEGATIVE (NEGATIVE) 03/10/23 04:59 U Cannabinoids Screen NEGATIVE (NEGATIVE) 03/10/23 04:59 Ethyl Alcohol < 10.0 mg/dL 03/10/23 16:54 ABX Reporting Has patient been on IV antibiotics over the past 48 hours?: No Current Medications - Current Medications Current Medications: Active Medications Acetaminophen (Acetaminophen 325 Mg Tablet) 650 mg PO Q4HR PRN PRN Reason: Pain 1 to 4, or Fever Hydrocodone Bitart/Acetaminophen (Hydrocod/Acetam 10 Mg/325 Mg Tablet) 1 tab PO Q4HR PRN PRN Reason: Pain 8 to 10 Last Admin: 03/11/23 13:14 Dose: 1 tab Docusate Sodium (Docusate Sodium 250 Mg Capsule) 250 - 500 mg PO DAILY [facility] Last Admin: 03/11/23 10:36 Dose: 250 mg Enoxaparin Sodium (Enoxaparin 40 Mg/0.4 Ml Syringe) 40 mg SUBQ DAILY [facility] Last Admin: 03/11/23 10:36 Dose: 40 mg Famotidine (Famotidine 20 Mg Tablet) 20 mg PO BID [facility] Last Admin: 03/11/23 10:36 Dose: 20 mg Gabapentin (Gabapentin 100 Mg Capsule) 100 mg PO QDDINNER [facility] Hydromorphone HCl (Hydromorphone 0.5 Mg/0.5 Ml Syringe) 0.5 mg IVP Q2H PRN PRN Reason: Pain 8 to 10 Last Admin: 03/11/23 13:32 Dose: 0.5 mg Potassium Chloride/Sodium Chloride (Normal Saline 0.9% W/20 Meq Kcl) 1,000 mls @ 100 mls/hr IV .Q10H [facility] Last Admin: 03/11/23 14:23 Dose: 100 mls/hr Potassium Chloride (Potassium Chloride) 10 meq in 100 mls @ 100 mls/hr IV Q1H [facility] Stop: 03/11/23 15:59 Last Admin: 03/11/23 14:23 Dose: 100 mls/hr Lidocaine (Lidocaine Patch 5%) 1 patch TOP DAILY PRN PRN Reason: Moderate Pain (Level 4-6) Last Admin: 03/11/23 11:59 Dose: 1 patch Lorazepam (Lorazepam 2 Mg/Ml Vial) 0.5 mg IVP Q2H PRN PRN Reason: Anxiety Nicotine (Nicotine 21 Mg Patch) 1 patch TOP DAILY [facility] Last Admin: 03/11/23 10:36 Dose: 1 patch Ondansetron HCl (Ondansetron Odt 4 Mg Tablet) 4 mg TL Q6HR PRN PRN Reason: Nausea / Vomiting Last Admin: 03/11/23 04:59 Dose: 4 mg Ondansetron HCl (Ondansetron 4 Mg/2 Ml Vial) 4 mg IVP Q6HR PRN PRN Reason: Nausea / Vomiting Last Admin: 03/11/23 09:43 Dose: 4 mg Polyethylene Glycol (Polyethylene Glycol 3350 17 Gm Packet) 17 gm PO DAILY [facility] Last Admin: 03/11/23 10:36 Dose: 17 gm Prochlorperazine Edisylate (Prochlorperazine 10 Mg/2 Ml Vial) 10 mg IVP Q6HR PRN PRN Reason: Nausea / Vomiting Last Admin: 03/10/23 20:28 Dose: 10 mg Senna (Senna 8.6 Mg Tablet) 8.6 - 17.2 mg PO DAILY [facility] Last Admin: 03/11/23 10:36 Dose: 8.6 mg Sodium Chloride (Sodium Chloride Flush 0.9% 10 Ml Syringe) 10 ml IVP PRN PRN PRN Reason: NEEDED PER PROVIDER ORDERS Last Admin: 03/10/23 20:28 Dose: 10 ml Sodium Chloride (Sodium Chloride Flush 0.9% 10 Ml Syringe) 10 ml IVP 0100,0 900,1700 [facility] Last Admin: 03/11/23 05:00 Dose: 10 ml No Known Home Medications 03/11/23
[2023-03-11] MEDS: ONDANSETRON 4 MG/2 ML VIAL IVP PRN (09:43)
[2023-03-11] MEDS: POTASSIUM CHLOR 10 MEQ/100 ML 10 MEQ/100 ML BAG IV SCH ×10 (10:30→23:34)
[2023-03-11] MEDS: FAMOTIDINE 20 MG TABLET PO SCH ×2 (10:36→21:17)
[2023-03-11] MEDS: ENOXAPARIN 40 MG/0.4 ML SYRINGE SUBQ SCH (10:36)
[2023-03-11] MEDS: NICOTINE 21 MG PATCH TOP SCH (10:36)
[2023-03-11] MEDS: DOCUSATE SODIUM 250 MG CAPSULE PO SCH (10:36)
[2023-03-11] MEDS: SENNA 8.6 MG TABLET PO SCH (10:36)
[2023-03-11] MEDS: polyethylene glycoL 3350 17 GM PACKET PO SCH (10:36)
--- NOTE | 2023-03-11 10:52 | PHARMACY PROGRESS NOTE ---
- Best Possible Medication History Admit Date and Time: 03/10/23 6773 Processed by: Pharmacy Medication History completed: Yes Patient Interview: Completed As the person ultimately responsible for medication therapy, providers are able to order a medication from an existing home medication list in [facility] via the "Reconcile Routine" prior to Confirmation of that medication by clinical support specialist. Such practice is discouraged except when the physician, in their clinical cisco gment, deems that a medical need exists for a medication without regard to previous use.
[2023-03-11] MEDS: LIDOCAINE PATCH 5% TOP PRN (11:59)
[2023-03-11] MEDS: D5NS W/20 MEQ KCL 1,000 ML IV SCH (16:01)
[2023-03-11] MEDS: PROCHLORPERAZINE 10 MG/2 ML VIAL IVP PRN (16:08)
[2023-03-11 16:17] LABS: CREATININE,URINE 57.8 mg/dL; POTASSIUM,URINE 22.5 mmol/L; SODIUM, URINE 26.2 mmol/L
[2023-03-11] MEDS: GABAPENTIN 100 MG CAPSULE PO SCH (16:41)
[2023-03-11] MEDS: SODIUM CHLORIDE FLUSH 0.9% 10 ML SYRINGE IVP PRN ×2 (17:23→20:08)
[2023-03-11 18:46] LABS: CALCIUM 8.9 mg/dL (8.5-10.3); CREATININE 2.4 mg/dL (0.6-1.3); POTASSIUM 3.3 mmol/L (3.5-4.5)
--- NOTE | 2023-03-11 19:18 | Ultrasound Report ---
PROCEDURE: Abdomen Limited INDICATIONS: generalized pain TECHNIQUE: Real-time focused scanning was performed of the abdomen, with image documentation. COMPARISONS: None. FINDINGS: Liver: Liver is normal in size and homogeneous in echotexture. In the left hepatic lobe, there is an echogenic focus measuring 2.3 x 1.3 x 3.5 cm. Gallbladder: Multiple gallstones and sludge is seen with the largest gallstone measuring up to 12 mm. No significant gallbladder wall thickening measuring up to 3 mm. However, there is a positive sonogr aphic Bateman sign. Biliary ducts: Intrahepatic bile ducts are non-dilated. Extrahepatic bile duct caliber measures 4 m m at the liver and 8 mm at the pancreatic head. Normal is 6-7 mm or less in diameter, or 10 mm or le ss post-cholecystectomy. Pancreas: Visualized portions of the pancreas are sonographically normal. Right kidney: Normal in size and echotexture. Right kidney measures 11.2 cm long. No hydronephrosis. There is an echogenic focus measuring 8 x 6 x 10 mm with possible shadowing. No solid masses. No com plex renal cystic lesions which require follow-up. Miscellaneous: No free abdominal fluid. IMPRESSION: 1.Multiple gallstones and sludge is seen. No significant gallbladder wall thickening or pericholecyst ic fluid. However, there is a positive sonographic Bateman sign. Findings are indeterminate for acute cholecystitis. Recommend clinical correlation and consider HIDA scan if clinically indicated. 2.Echogenic focus within the left hepatic lobe measuring 3.5 cm, favored to represent a hemangioma. O ther neoplasms are thought to be less likely. 3.The common bile duct measures 4 mm adjacent to the liver and 8 mm at the pancreatic head. No obstru cting stone or lesion is seen. 4.There is a 10 mm echogenic focus within the right kidney with possible shadowing, may represent a n onobstructing stone. No hydronephrosis. Reviewed by: Perez Handy MD on 03/11/2023 7:17 PM PDT Approved by: Perez Handy MD on 03/11/2023 7:17 PM PDT Station ID: [id number]
--- NOTE | 2023-03-11 19:43 | PROVIDER PROGRESS NOTE ---
Progress Note Patient still has intractable abdominal pain, ultrasound abdomen performed stat Lipase negative, CRP within normal limits Report multiple gallstones and sign of acute cholecystitis With the intractable abdominal pain, and ultrasound evidence, likely patient is experiencing colic pain Start patient with levofloxacin and metronidazole Follow-up potassium increased to 3.3, still need more replenishment give 4 more doses of IV potassium 10 mEq Acute hyponatremia noted, likely is from poor oral intake and IV fluid. With sodium of 128 comparing to 130 1 in the morning, give patient sodium chloride tablet 1 g 3 times daily for 1 to 2 days Follow-up CMP tomorrow in the morning Renal function slightly improved, urine electrolytes study shows no sign of blood potassium wasting, likely the severe hypokalemia is still from GI loss
[2023-03-11] MEDS ORDERED: levoFLOXacin 750 MG/150 ML 750 MG/150 ML BAG IV SCH (20:00)
[2023-03-11] MEDS: metroNIDAZOLE 500 MG/100 ML 500 MG/100 ML BAG IV SCH (20:08)
[2023-03-11] MEDS: SODIUM CHLORIDE 1 GM TABLET PO SCH (21:21)
[2023-03-12] MEDS: D5NS W/20 MEQ KCL 1,000 ML IV SCH (00:39)
[2023-03-12] MEDS: SODIUM CHLORIDE FLUSH 0.9% 10 ML SYRINGE IVP SCH ×3 (00:40→15:39)
[2023-03-12] MEDS: HYDROmorphone 0.5 MG/0.5 ML SYRINGE IVP PRN ×8 (01:23→21:57)
[2023-03-12] MEDS: metroNIDAZOLE 500 MG/100 ML 500 MG/100 ML BAG IV SCH ×3 (03:51→19:49)
[2023-03-12] MEDS: CYCLOBENZAPRINE 10 MG TABLET PO PRN ×3 (03:56→21:59)
[2023-03-12 05:56] LABS: BASOPHILS # (AUTO) 0.1 10^3/uL (0.0-0.1); BASOPHILS % (AUTO) 1.6 %; EOSINOPHILS # (AUTO) 0.1 10^3/uL (0.0-0.7); EOSINOPHILS % (AUTO) 1.6 %; HCT - HEMATOCRIT 32.8 % (37.0-47.0); HGB - HEMOGLOBIN 10.8 g/dL (12.0-16.0); LYMPHOCYTES % (AUTO) 25.1 %; MEAN CORPUSCULAR HEMOGLOBIN 30.8 pg (27.0-31.0); MEAN CORPUSCULAR HGB CONC 32.9 g/dL (32.0-36.0); MEAN CORPUSCULAR VOLUME 93.4 fL (81.0-99.0); MEAN PLATELET VOLUME 9.5 fL (7.9-10.8); MONOCYTES # (AUTO) 0.6 10^3/uL (0.0-1.0); MONOCYTES % (AUTO) 16.2 %; NEUTROPHILS # (AUTO) 2.1 10^3/uL (1.5-6.6); NEUTROPHILS % (AUTO) 55.2 %; PLT - PLATELET COUNT 251 10^3/uL (130-450); RED BLOOD COUNT 3.51 10^6/uL (4.20-5.40); RED CELL DISTRIBUTION WIDTH 14.6 % (12.0-15.0); WHITE BLOOD COUNT 3.8 x10^3/uL (4.8-10.8)
[2023-03-12] MEDS: HYDROcod/ACETAM 10 MG/325 MG TABLET PO PRN ×4 (06:05→19:45)
[2023-03-12] MEDS: SODIUM CHLORIDE 1 GM TABLET PO SCH (06:05)
[2023-03-12 06:08] LABS: ALBUMIN 3.4 g/dL (3.2-5.5); ALBUMIN/GLOBULIN RATIO 1.8 (1.0-2.2); BILIRUBIN,TOTAL 0.3 mg/dL (0.2-1.0); CALCIUM 8.6 mg/dL (8.5-10.3); CREATININE 2.3 mg/dL (0.6-1.3); POTASSIUM 3.6 mmol/L (3.5-4.5); TOTAL PROTEIN 5.3 g/dL (6.4-8.9)
--- NOTE | 2023-03-12 07:30 | PROVIDER PROGRESS NOTE ---
Assessment/Plan - Problem List (1) Acute cholecystitis Assessment/Plan: Due to gallstones, Evidenced by ultrasound, normal bile duct blockage, normal CMP Started on levothyroxine and Flagyl on 03/11 Continue with IV antibiotic, continue with analgesia Observe response to medical treatment We will consult with general surgeon tomorrow when surgical team available (2) Hypokalemia Assessment/Plan: Resolved No further nausea vomiting, patient is able to take oral meds and food Potassium 3.6 today Observe any more GI loss, replenish as needed (3) Hypochloremia Assessment/Plan: Resolved after replenish Monitor BMP daily (4) Acute renal failure Assessment/Plan: Slightly improved creatinine, 2.3 today Defer IV fluid for a day due to large amount of Crystal light received in the past 2 days Follow-up with renal function May consider give IV fluids tomorrow, also need to talk to urologist regarding the obstructive renal stone (5) Narcotic withdrawal Assessment/Plan: Patient is long-term narcotic user, No sign of withdrawal, also with her severe pain, we are giving the Narcotic for pain control However patient might have very low threshold for pain and also tolerate with narcotic - Current Meds Current Meds: Current Medications Generic Name Dose Route Start Last Admin Trade Name Freq PRN Reason Stop Dose Admin Hydrocodone Bitart/Acetaminophen 1 tab 03/10/23 17:50 03/12/23 06:05 Hydrocod/Acetam 10 Mg/325 Mg Tablet PO 1 tab Q4HR PRN Administration Pain 8 to 10 Cyclobenzaprine HCl 10 mg 03/11/23 17:03 03/12/23 03:56 Cyclobenzaprine 10 Mg Tablet PO 10 mg TID PRN Administration Spasms Docusate Sodium 250 - 500 mg 03/11/23 09:00 03/11/23 10:36 Docusate Sodium 250 Mg Capsule PO 250 mg DAILY NALINI Administration Enoxaparin Sodium 40 mg 03/11/23 09:00 03/11/23 10:36 Enoxaparin 40 Mg/0.4 Ml Syringe SUBQ 40 mg DAILY NALINI Administration Famotidine 20 mg 03/10/23 22:00 03/11/23 21:17 Famotidine 20 Mg Tablet PO 20 mg BID NALINI Administration Gabapentin 100 mg 03/11/23 17:00 03/11/23 16:41 Gabapentin 100 Mg Capsule PO 100 mg QDDINNER NALINI Administration Hydromorphone HCl 0.5 mg 03/10/23 17:50 03/12/23 01:23 Hydromorphone 0.5 Mg/0.5 Ml Syringe IVP 0.5 mg Q2H PRN Administration Pain 8 to 10 Levofloxacin 750 mg in 150 mls @ 100 mls/hr 03/11/23 20:00 03/11/23 22:42 Levaquin 750 Mg/150 Ml IV Infused Q48H NALINI Infusion Metronidazole 500 mg in 100 mls @ 100 mls/hr 03/11/23 20:00 03/12/23 04:46 Flagyl 500 Mg/100 Ml IV Infused Q8H NALINI Infusion Lidocaine 1 patch 03/11/23 11:15 03/11/23 11:59 Lidocaine Patch 5% TOP 1 patch DAILY PRN Administration Moderate Pain (Level 4-6) Nicotine 1 patch 03/10/23 23:00 03/11/23 10:36 Nicotine 21 Mg Patch TOP 1 patch DAILY NALINI Administration Ondansetron HCl 4 mg 03/10/23 17:50 03/11/23 23:37 Ondansetron Odt 4 Mg Tablet TL 4 mg Q6HR PRN Administration Nausea / Vomiting Ondansetron HCl 4 mg 03/10/23 17:50 03/11/23 09:43 Ondansetron 4 Mg/2 Ml Vial IVP 4 mg Q6HR PRN Administration Nausea / Vomiting Polyethylene Glycol 17 gm 03/11/23 09:00 03/11/23 10:36 Polyethylene Glycol 3350 17 Gm Packet PO 17 gm DAILY NALINI Administration Prochlorperazine Edisylate 10 mg 03/10/23 17:50 03/11/23 16:08 Prochlorperazine 10 Mg/2 Ml Vial IVP 10 mg Q6HR PRN Administration Nausea / Vomiting Senna 8.6 - 17.2 mg 03/11/23 09:00 03/11/23 10:36 Senna 8.6 Mg Tablet PO 8.6 mg DAILY NALINI Administration Sodium Chloride 10 ml 03/10/23 17:50 03/11/23 20:08 Sodium Chloride Flush 0.9% 10 Ml Syringe IVP 10 ml PRN PRN Administration NEEDED PER PROVIDER ORDERS Sodium Chloride 10 ml 03/11/23 01:00 03/12/23 01:23 Sodium Chloride Flush 0.9% 10 Ml Syringe IVP 10 ml 0100,0900,1700 [facility] Administration - Lab Result Fish Bone Diagrams: 03/12/23 05:38 03/12/23 05:38 - Additional Planning My Orders: My Active Orders 03/11/23 09:00 Docusate Sodium 250Mg Capsule [Colace 250Mg Capsule] 250 - 500 mg PO DAILY Enoxaparin [Lovenox] 40 mg SUBQ DAILY Senna [Senokot] 8.6 - 17.2 mg PO DAILY polyethylene glycoL 3350 [Miralax] 17 gm PO DAILY 03/11/23 11:15 Lidocaine Patch 5% [Lidoderm Patch] 1 patch TOP DAILY PRN 03/11/23 17:00 Gabapentin [Neurontin] 100 mg PO QDDINNER 03/11/23 17:03 Cyclobenzaprine [Flexeril] 10 mg PO TID PRN 03/11/23 17:43 Telemetry (24 Hour) [RC] Q4HR 03/11/23 20:00 levoFLOXacin 750 MG/150 ML [Levaquin 750 mg/150 ml] 750 mg in 150 ml IV Q48H metroNIDAZOLE 500 MG/100 ML [Flagyl 500 mg/100 ml] 500 mg in 100 ml IV Q8H 03/12/23 Breakfast Clear Liquid Diet [DIET] 03/13/23 05:00 BMP - BASIC METABOLIC PANEL [CHEM] DAILYLAB CBC [CBC - COMP BLD CT W/AUTO DIFF] [HEME] DAILYLAB 03/14/23 05:00 BMP - BASIC METABOLIC PANEL [CHEM] DAILYLAB CBC [CBC - COMP BLD CT W/AUTO DIFF] [HEME] DAILYLAB 03/15/23 05:00 BMP - BASIC METABOLIC PANEL [CHEM] DAILYLAB CBC [CBC - COMP BLD CT W/AUTO DIFF] [HEME] DAILYLAB Subjective - Subjective Patient Reports: Pain (Reports both flank pain, and right lower abdominal pain Appetite is improved, would like to try more food) Objective Vital Signs: Vital Signs - 24 hr 03/11/23 03/11/23 03/11/23 08:25 11:51 16:00 Temperature 36.6 C 36.6 C 36.4 C L Heart Rate [ 67 74 60 Brachial] Heart Rate [ Monitoring electrodes] Respiratory 16 18 20 Rate Blood Pressure 115/67 118/80 118/79 [Left Brachial artery] O2 Saturation 93 96 95 03/11/23 03/11/23 03/12/23 20:24 23:41 03:55 Temperature 36.6 C 36.9 C 36.5 C Heart Rate [ 64 74 Brachial] Heart Rate [ 60 Monitoring electrodes] Respiratory 16 16 14 Rate Blood Pressure 100/57 L 107/72 112/87 H [Left Brachial artery] O2 Saturation 93 98 99 Oxygen O2 Source Room air I&O (Last 24 Hrs): Intake and Output Totals x24h 03/10/23 03/11/23 03/12/23 23:59 23:59 23:59 Intake Total 1135 4804.583 1373.333 Output Total 150 1900 900 Balance 985 2904.583 473.333 General: Alert, Oriented x3, Mild distress HEENT: Atraumatic, PERRLA, EOMI Neck: Supple, No JVD Neuro: Alert, Non Focal Cardiovascular: Regular rate Abdomen: Soft, Other (Tender to palpation) Extremities: No clubbing, No cyanosis, No edema - Results Results: Laboratory Results WBC 3.8 x10^3/uL (4.8-10.8) L 03/12/23 05:38 RBC 3.51 10^6/uL (4.20-5.40) L 03/12/23 05:38 Hgb 10.8 g/dL (12.0-16.0) L 03/12/23 05:38 Hct 32.8 % (37.0-47.0) L 03/12/23 05:38 MCV 93.4 fL (81.0-99.0) 03/12/23 05:38 MCH 30.8 pg (27.0-31.0) 03/12/23 05:38 MCHC 32.9 g/dL (32.0-36.0) 03/12/23 05:38 RDW 14.6 % (12.0-15.0) 03/12/23 05:38 Plt Count 251 10^3/uL (130-450) 03/12/23 05:38 MPV 9.5 fL (7.9-10.8) 03/12/23 05:38 Neut # (Auto) 2.1 10^3/uL (1.5-6.6) 03/12/23 05:38 Lymph # (Auto) 1.0 10^3/uL (1.5-3.5) L 03/12/23 05:38 [place] # (Auto) 0.6 10^3/uL (0.0-1.0) 03/12/23 05:38 Eos # (Auto) 0.1 10^3/uL (0.0-0.7) 03/12/23 05:38 Baso # (Auto) 0.1 10^3/uL (0.0-0.1) 03/12/23 05:38 Absolute Nucleated RBC 0.00 x10^3/uL 03/12/23 05:38 Nucleated RBC % 0.0 /100WBC 03/12/23 05:38 Sodium 135 mmol/L (135-145) 03/12/23 05:38 Potassium 3.6 mmol/L (3.5-4.5) 03/12/23 05:38 Chloride 96 mmol/L (101-111) L 03/12/23 05:38 Carbon Dioxide 35 mmol/L (21-32) H 03/12/23 05:38 Anion Gap 4.0 (6-13) L 03/12/23 05:38 BUN 33 mg/dL (6-20) H 03/12/23 05:38 Creatinine 2.3 mg/dL (0.6-1.3) H 03/12/23 05:38 Estimated GFR (MDRD) 25 (>89) L 03/12/23 05:38 Glucose 125 mg/dL (74-104) H 03/12/23 05:38 Calcium 8.6 mg/dL (8.5-10.3) 03/12/23 05:38 Magnesium 2.5 mg/dL (1.7-2.3) H 03/10/23 16:54 Total Bilirubin 0.3 mg/dL (0.2-1.0) 03/12/23 05:38 AST 15 IU/L (10-42) 03/12/23 05:38 ALT 7 IU/L (10-60) L 03/12/23 05:38 Alkaline Phosphatase 34 IU/L (42-121) L 03/12/23 05:38 C-Reactive Protein 1.0 mg/dL (<0.5) H 03/11/23 18:13 Total Protein 5.3 g/dL (6.4-8.9) L 03/12/23 05:38 Albumin 3.4 g/dL (3.2-5.5) 03/12/23 05:38 Globulin 1.9 g/dL (2.1-4.2) L 03/12/23 05:38 Albumin/Globulin Ratio 1.8 (1.0-2.2) 03/12/23 05:38 Lipase 36 U/L (11-82) 03/11/23 18:13 Urine Color YELLOW 03/10/23 04:59 Urine Clarity SL. CLOUDY (CLEAR) 03/10/23 04:59 Urine pH 6.5 PH (5.0-7.5) 03/10/23 04:59 Ur Specific [place] 1.020 (1.002-1.030) 03/10/23 04:59 Urine Protein 30 mg/dL (NEGATIVE) H 03/10/23 04:59 Urine Glucose (UA) NEGATIVE mg/dL (NEGATIVE) 03/10/23 04:59 Urine Ketones 15 mg/dL (NEGATIVE) H 03/10/23 04:59 Urine Occult Blood NEGATIVE (NEGATIVE) 03/10/23 04:59 Urine Nitrite NEGATIVE (NEGATIVE) 03/10/23 04:59 Urine Bilirubin NEGATIVE (NEGATIVE) 03/10/23 04:59 Urine Urobilinogen 0.2 (NORMAL) E.U./dL (NORMAL) 03/10/23 04:59 Ur Leukocyte Esterase NEGATIVE (NEGATIVE) 03/10/23 04:59 Urine RBC 0-5 /HPF (0-5) 03/10/23 04:59 Urine WBC 0-3 /HPF (0-5) 03/10/23 04:59 Ur Squamous Epith Cells FEW Squamous (<= Few) 03/10/23 04:59 Urine Bacteria Many /HPF (None Seen) H 03/10/23 04:59 Urine Mucus Few Strands 03/10/23 04:59 Ur Microscopic Review INDICATED 03/10/23 04:59 Urine Culture Comments NOT INDICATED 03/10/23 04:59 Urine Creatinine 57.8 mg/dL 03/11/23 15:55 Urine Sodium 26.2 mmol/L 03/11/23 15:55 Urine Potassium 22.5 mmol/L 03/11/23 15:55 Urine HCG, Qual NEGATIVE 03/10/23 04:59 Urine Opiates Screen POSITIVE (NEGATIVE) H 03/10/23 04:59 Ur Oxycodone Screen NEGATIVE (NEGATIVE) 03/10/23 04:59 Urine Methadone Screen NEGATIVE (NEGATIVE) 03/10/23 04:59 Ur Propoxyphene Screen NEGATIVE (NEGATIVE) 03/10/23 04:59 Ur Barbiturates Screen NEGATIVE (NEGATIVE) 03/10/23 04:59 Ur Tricyclics Screen NEGATIVE (NEGATIVE) 03/10/23 04:59 Ur Phencyclidine Scrn NEGATIVE (NEGATIVE) 03/10/23 04:59 Ur Amphetamine Screen NEGATIVE (NEGATIVE) 03/10/23 04:59 U Methamphetamines Scrn NEGATIVE (NEGATIVE) 03/10/23 04:59 U Benzodiazepines Scrn POSITIVE (NEGATIVE) H 03/10/23 04:59 Urine Cocaine Screen NEGATIVE (NEGATIVE) 03/10/23 04:59 U Cannabinoids Screen NEGATIVE (NEGATIVE) 03/10/23 04:59 Ethyl Alcohol < 10.0 mg/dL 03/10/23 16:54 ABX Reporting Has patient been on IV antibiotics over the past 48 hours?: Yes Current Medications - Current Medications Current Medications: Active Medications Generic Name Dose Route Start Last Admin Trade Name Freq PRN Reason Stop Dose Admin Acetaminophen 650 mg 03/10/23 17:50 Acetaminophen 325 Mg Tablet PO Q4HR PRN Pain 1 to 4, or Fever Hydrocodone Bitart/Acetaminophen 1 tab 03/10/23 17:50 03/12/23 11:03 Hydrocod/Acetam 10 Mg/325 Mg Tablet PO 1 tab Q4HR PRN Administration Pain 8 to 10 Cyclobenzaprine HCl 10 mg 03/11/23 17:03 03/12/23 11:04 Cyclobenzaprine 10 Mg Tablet PO 10 mg TID PRN Administration Spasms Docusate Sodium 250 - 500 mg 03/11/23 09:00 03/12/23 09:17 Docusate Sodium 250 Mg Capsule PO 250 mg DAILY NALINI Administration Enoxaparin Sodium 40 mg 03/11/23 09:00 03/12/23 09:17 Enoxaparin 40 Mg/0.4 Ml Syringe SUBQ 40 mg DAILY NALINI Administration Famotidine 20 mg 03/10/23 22:00 03/12/23 09:17 Famotidine 20 Mg Tablet PO 20 mg BID NALINI Administration Gabapentin 100 mg 03/11/23 17:00 03/11/23 16:41 Gabapentin 100 Mg Capsule PO 100 mg QDDINNER NALINI Administration Hydromorphone HCl 0.5 mg 03/10/23 17:50 03/12/23 12:37 Hydromorphone 0.5 Mg/0.5 Ml Syringe IVP 0.5 mg Q2H PRN Administration Pain 8 to 10 Metronidazole 500 mg in 100 mls @ 100 mls/hr 03/11/23 20:00 03/12/23 13:42 Flagyl 500 Mg/100 Ml IV Infused Q8H NALINI Infusion Levofloxacin 750 mg in 150 mls @ 100 mls/hr 03/12/23 22:00 Levaquin 750 Mg/150 Ml IV Q24H NALINI Lidocaine 1 patch 03/11/23 11:15 03/12/23 09:17 Lidocaine Patch 5% TOP 1 patch DAILY PRN Administration Moderate Pain (Level 4-6) Lorazepam 0.5 mg 03/10/23 19:02 Lorazepam 2 Mg/Ml Vial IVP Q2H PRN Anxiety Nicotine 1 patch 03/10/23 23:00 03/12/23 09:18 Nicotine 21 Mg Patch TOP Not Given DAILY NALINI Ondansetron HCl 4 mg 03/10/23 17:50 03/11/23 23:37 Ondansetron Odt 4 Mg Tablet TL 4 mg Q6HR PRN Administration Nausea / Vomiting Ondansetron HCl 4 mg 03/10/23 17:50 03/11/23 09:43 Ondansetron 4 Mg/2 Ml Vial IVP 4 mg Q6HR PRN Administration Nausea / Vomiting Polyethylene Glycol 17 gm 03/11/23 09:00 03/12/23 09:28 Polyethylene Glycol 3350 17 Gm Packet PO 17 gm DAILY NALINI Administration Prochlorperazine Edisylate 10 mg 03/10/23 17:50 03/11/23 16:08 Prochlorperazine 10 Mg/2 Ml Vial IVP 10 mg Q6HR PRN Administration Nausea / Vomiting Senna 8.6 - 17.2 mg 03/11/23 09:00 03/12/23 09:17 Senna 8.6 Mg Tablet PO 8.6 mg DAILY NALINI Administration Sodium Chloride 10 ml 03/10/23 17:50 03/11/23 20:08 Sodium Chloride Flush 0.9% 10 Ml Syringe IVP 10 ml PRN PRN Administration NEEDED PER PROVIDER ORDERS Sodium Chloride 10 ml 03/11/23 01:00 03/12/23 01:23 Sodium Chloride Flush 0.9% 10 Ml Syringe IVP 10 ml 0100,0900,1700 NALINI Administration No Known Home Medications 03/11/23
[2023-03-12] MEDS: SENNA 8.6 MG TABLET PO SCH (09:17)
[2023-03-12] MEDS: DOCUSATE SODIUM 250 MG CAPSULE PO SCH (09:17)
[2023-03-12] MEDS: ENOXAPARIN 40 MG/0.4 ML SYRINGE SUBQ SCH (09:17)
[2023-03-12] MEDS: FAMOTIDINE 20 MG TABLET PO SCH ×2 (09:17→20:50)
[2023-03-12] MEDS: LIDOCAINE PATCH 5% TOP PRN (09:17)
[2023-03-12] MEDS: NICOTINE 21 MG PATCH TOP SCH (09:18)
[2023-03-12] MEDS: polyethylene glycoL 3350 17 GM PACKET PO SCH (09:28)
[2023-03-12] MEDS ORDERED: levoFLOXacin 750 MG/150 ML 750 MG/150 ML BAG IV SCH ×2 (13:26→22:00)
[2023-03-12] MEDS: GABAPENTIN 100 MG CAPSULE PO SCH (16:48)
[2023-03-12] MEDS: SODIUM CHLORIDE FLUSH 0.9% 10 ML SYRINGE IVP PRN ×5 (16:49→21:57)
[2023-03-12] MEDS: LORazepam 2 MG/ML VIAL IVP PRN (19:53)
[2023-03-13] MEDS: SODIUM CHLORIDE FLUSH 0.9% 10 ML SYRINGE IVP SCH ×3 (00:30→17:27)
[2023-03-13] MEDS: HYDROcod/ACETAM 10 MG/325 MG TABLET PO PRN ×3 (00:31→17:24)
[2023-03-13] MEDS: HYDROmorphone 0.5 MG/0.5 ML SYRINGE IVP PRN ×4 (00:32→19:53)
[2023-03-13] MEDS: LORazepam 2 MG/ML VIAL IVP PRN ×2 (00:44→08:33)
[2023-03-13] MEDS: metroNIDAZOLE 500 MG/100 ML 500 MG/100 ML BAG IV SCH ×2 (04:03→11:55)
[2023-03-13 06:00] LABS: BASOPHILS # (AUTO) 0.1 10^3/uL (0.0-0.1); BASOPHILS % (AUTO) 1.1 %; EOSINOPHILS # (AUTO) 0.2 10^3/uL (0.0-0.7); EOSINOPHILS % (AUTO) 3.3 %; HCT - HEMATOCRIT 36.7 % (37.0-47.0); LYMPHOCYTES # (AUTO) 1.3 10^3/uL (1.5-3.5); LYMPHOCYTES % (AUTO) 29.2 %; MEAN CORPUSCULAR HEMOGLOBIN 30.8 pg (27.0-31.0); MEAN CORPUSCULAR HGB CONC 32.7 g/dL (32.0-36.0); MEAN CORPUSCULAR VOLUME 94.1 fL (81.0-99.0); MEAN PLATELET VOLUME 9.3 fL (7.9-10.8); MONOCYTES # (AUTO) 0.7 10^3/uL (0.0-1.0); MONOCYTES % (AUTO) 14.7 %; NEUTROPHILS # (AUTO) 2.3 10^3/uL (1.5-6.6); NEUTROPHILS % (AUTO) 51.5 %; PLT - PLATELET COUNT 276 10^3/uL (130-450); RED CELL DISTRIBUTION WIDTH 14.7 % (12.0-15.0); WHITE BLOOD COUNT 4.6 x10^3/uL (4.8-10.8)
[2023-03-13 06:09] LABS: CREATININE 2.1 mg/dL (0.6-1.3); POTASSIUM 3.6 mmol/L (3.5-4.5)
--- NOTE | 2023-03-13 07:39 | PROVIDER PROGRESS NOTE ---
Assessment/Plan - Problem List (1) Acute renal failure Assessment/Plan: Improving, creatinine 2.1 today however with her age, quickly recovery of renal function after IV fluid was expected. There are concerns of other intrarenal conditions. Urine electrolytes as ordered. Repeat ultrasound of renal to check the status of the renal stone. If the renal stone still be a problem we might have to consider urology consultation Strain all urine (2) Acute cholecystitis Assessment/Plan: Consulted with surgical Dr. Naranjo, talked to him regarding the concerns of the gallstones. Dr. Naranjo evaluated patient, considers her pain is from Fentanyl intoxication, no indication for surgical intervention. Murray has received 3 days iv levofloxacin and Flagyl. No leukocytosis, no significant change of abdominal pain. Discontinue both to observe patient off antibiotics. US abdomen to follow up on the gallstone CRP was negative two days ago, Check CRP tomorrow a.m. (3) Hypokalemia Assessment/Plan: Resolved, after replenishment potassium within normal limits now (4) Hypochloremia Assessment/Plan: Resolved, Chloride is corrected within normal limits (5) Narcotic withdrawal Assessment/Plan: Patient is a daily smoking fentanyl, is willing to have fentanyl cessation. High demand of iv dialaudid. -give suboxone -spacing the dose of iv dialuadid - Current Meds Current Meds: Current Medications Generic Name Dose Route Start Last Admin Trade Name Freq PRN Reason Stop Dose Admin Hydrocodone Bitart/Acetaminophen 1 tab 03/10/23 17:50 03/13/23 00:31 Hydrocod/Acetam 10 Mg/325 Mg Tablet PO 1 tab Q4HR PRN Administration Pain 8 to 10 Cyclobenzaprine HCl 10 mg 03/11/23 17:03 03/12/23 21:59 Cyclobenzaprine 10 Mg Tablet PO 10 mg TID PRN Administration Spasms Docusate Sodium 250 - 500 mg 03/11/23 09:00 03/12/23 09:17 Docusate Sodium 250 Mg Capsule PO 250 mg DAILY NALINI Administration Enoxaparin Sodium 40 mg 03/11/23 09:00 03/12/23 09:17 Enoxaparin 40 Mg/0.4 Ml Syringe SUBQ 40 mg DAILY NALINI Administration Famotidine 20 mg 03/10/23 22:00 03/12/23 20:50 Famotidine 20 Mg Tablet PO 20 mg BID NALINI Administration Gabapentin 100 mg 03/11/23 17:00 03/12/23 16:48 Gabapentin 100 Mg Capsule PO 100 mg QDDINNER NALINI Administration Hydromorphone HCl 0.5 mg 03/10/23 17:50 03/13/23 05:32 Hydromorphone 0.5 Mg/0.5 Ml Syringe IVP 0.5 mg Q2H PRN Administration Pain 8 to 10 Metronidazole 500 mg in 100 mls @ 100 mls/hr 03/11/23 20:00 03/13/23 05:03 Flagyl 500 Mg/100 Ml IV Infused Q8H NALINI Infusion Levofloxacin 750 mg in 150 mls @ 100 mls/hr 03/12/23 22:00 03/12/23 23:24 Levaquin 750 Mg/150 Ml IV Infused Q24H NALINI Infusion Lidocaine 1 patch 03/11/23 11:15 03/12/23 09:17 Lidocaine Patch 5% TOP 1 patch DAILY PRN Administration Moderate Pain (Level 4-6) Lorazepam 0.5 mg 03/10/23 19:02 03/13/23 00:44 Lorazepam 2 Mg/Ml Vial IVP 0.5 mg Q2H PRN Administration Anxiety Nicotine 1 patch 03/10/23 23:00 03/12/23 09:18 Nicotine 21 Mg Patch TOP Not Given DAILY [facility] Ondansetron HCl 4 mg 03/10/23 17:50 03/11/23 23:37 Ondansetron Odt 4 Mg Tablet TL 4 mg Q6HR PRN Administration Nausea / Vomiting Ondansetron HCl 4 mg 03/10/23 17:50 03/11/23 09:43 Ondansetron 4 Mg/2 Ml Vial IVP 4 mg Q6HR PRN Administration Nausea / Vomiting Polyethylene Glycol 17 gm 03/11/23 09:00 03/12/23 09:28 Polyethylene Glycol 3350 17 Gm Packet PO 17 gm DAILY [facility] Administration Prochlorperazine Edisylate 10 mg 03/10/23 17:50 03/11/23 16:08 Prochlorperazine 10 Mg/2 Ml Vial IVP 10 mg Q6HR PRN Administration Nausea / Vomiting Senna 8.6 - 17.2 mg 03/11/23 09:00 03/12/23 09:17 Senna 8.6 Mg Tablet PO 8.6 mg DAILY NALINI Administration Sodium Chloride 10 ml 03/10/23 17:50 03/12/23 21:57 Sodium Chloride Flush 0.9% 10 Ml Syringe IVP 10 ml PRN PRN Administration NEEDED PER PROVIDER ORDERS Sodium Chloride 10 ml 03/11/23 01:00 03/13/23 00:30 Sodium Chloride Flush 0.9% 10 Ml Syringe IVP 10 ml 0100,0900,1700 NALINI Administration - Lab Result Fish Bone Diagrams: 03/13/23 05:51 03/13/23 05:51 - Diagnostic Imaging Results Diagnostic Imaging Results: Final report reviewed - Additional Planning My Orders: My Active Orders 03/12/23 Lunch DIET [Regular Diet] [DIET] 03/12/23 22:00 levoFLOXacin 750 MG/150 ML [Levaquin 750 mg/150 ml] 750 mg in 150 ml IV Q24H 03/13/23 Consult [General Surgery Consult] [CONS] Routine Consult [Urology Consult] [CONS] Routine 03/14/23 05:00 BMP - BASIC METABOLIC PANEL [CHEM] DAILYLAB CBC [CBC - COMP BLD CT W/AUTO DIFF] [HEME] DAILYLAB 03/15/23 05:00 BMP - BASIC METABOLIC PANEL [CHEM] DAILYLAB CBC [CBC - COMP BLD CT W/AUTO DIFF] [HEME] DAILYLAB Subjective - Subjective Patient Reports: Back Pain, Other (Still has a lot of generalized the pain. Mostly at lower back) Objective Vital Signs: Vital Signs - 24 hr 03/12/23 03/12/23 03/12/23 08:01 15:49 23:49 Temperature 36.6 C 37.0 C 36.4 C L Heart Rate [ 67 67 82 Brachial] Respiratory 16 20 16 Rate Blood Pressure 109/74 116/82 H 124/82 H [Left Brachial artery] O2 Saturation 98 100 100 03/13/23 03/13/23 05:05 05:29 Temperature 36.6 C Heart Rate [ 61 67 Brachial] Respiratory 14 15 Rate Blood Pressure 127/98 H 128/90 H [Left Brachial artery] O2 Saturation 100 100 Oxygen O2 Source Room air I&O (Last 24 Hrs): Intake and Output Totals x24h 03/11/23 03/12/23 03/13/23 23:59 23:59 23:59 Intake Total 4804.583 6063.333 100 Output Total 1900 3900 600 Balance 2904.583 2163.333 -500 General: Alert, Oriented x3 HEENT: PERRLA Neck: Supple, No JVD Neuro: Alert, Non Focal Respiratory: No respiratory distress Abdomen: Normal bowel sounds, Soft Extremities: No clubbing, No cyanosis Skin: No rashes - Results Results: Laboratory Results WBC 4.6 x10^3/uL (4.8-10.8) L 03/13/23 05:51 RBC 3.90 10^6/uL (4.20-5.40) L 03/13/23 05:51 Hgb 12.0 g/dL (12.0-16.0) 03/13/23 05:51 Hct 36.7 % (37.0-47.0) L 03/13/23 05:51 MCV 94.1 fL (81.0-99.0) 03/13/23 05:51 MCH 30.8 pg (27.0-31.0) 03/13/23 05:51 MCHC 32.7 g/dL (32.0-36.0) 03/13/23 05:51 RDW 14.7 % (12.0-15.0) 03/13/23 05:51 Plt Count 276 10^3/uL (130-450) 03/13/23 05:51 MPV 9.3 fL (7.9-10.8) 03/13/23 05:51 Neut # (Auto) 2.3 10^3/uL (1.5-6.6) 03/13/23 05:51 Lymph # (Auto) 1.3 10^3/uL (1.5-3.5) L 03/13/23 05:51 [place] # (Auto) 0.7 10^3/uL (0.0-1.0) 03/13/23 05:51 Eos # (Auto) 0.2 10^3/uL (0.0-0.7) 03/13/23 05:51 Baso # (Auto) 0.1 10^3/uL (0.0-0.1) 03/13/23 05:51 Absolute Nucleated RBC 0.00 x10^3/uL 03/13/23 05:51 Nucleated RBC % 0.0 /100WBC 03/13/23 05:51 Sodium 139 mmol/L (135-145) 03/13/23 05:51 Potassium 3.6 mmol/L (3.5-4.5) 03/13/23 05:51 Chloride 100 mmol/L (101-111) L 03/13/23 05:51 Carbon Dioxide 33 mmol/L (21-32) H 03/13/23 05:51 Anion Gap 6.0 (6-13) 03/13/23 05:51 BUN 19 mg/dL (6-20) 03/13/23 05:51 Creatinine 2.1 mg/dL (0.6-1.3) H 03/13/23 05:51 Estimated GFR (MDRD) 28 (>89) L 03/13/23 05:51 Glucose 89 mg/dL (74-104) 03/13/23 05:51 Calcium 9.0 mg/dL (8.5-10.3) 03/13/23 05:51 Magnesium 2.5 mg/dL (1.7-2.3) H 03/10/23 16:54 Total Bilirubin 0.3 mg/dL (0.2-1.0) 03/12/23 05:38 AST 15 IU/L (10-42) 03/12/23 05:38 ALT 7 IU/L (10-60) L 03/12/23 05:38 Alkaline Phosphatase 34 IU/L (42-121) L 03/12/23 05:38 C-Reactive Protein 1.0 mg/dL (<0.5) H 03/11/23 18:13 Total Protein 5.3 g/dL (6.4-8.9) L 03/12/23 05:38 Albumin 3.4 g/dL (3.2-5.5) 03/12/23 05:38 Globulin 1.9 g/dL (2.1-4.2) L 03/12/23 05:38 Albumin/Globulin Ratio 1.8 (1.0-2.2) 03/12/23 05:38 Lipase 36 U/L (11-82) 03/11/23 18:13 Urine Color YELLOW 03/10/23 04:59 Urine Clarity SL. CLOUDY (CLEAR) 03/10/23 04:59 Urine pH 6.5 PH (5.0-7.5) 03/10/23 04:59 Ur Specific [place] 1.020 (1.002-1.030) 03/10/23 04:59 Urine Protein 30 mg/dL (NEGATIVE) H 03/10/23 04:59 Urine Glucose (UA) NEGATIVE mg/dL (NEGATIVE) 03/10/23 04:59 Urine Ketones 15 mg/dL (NEGATIVE) H 03/10/23 04:59 Urine Occult Blood NEGATIVE (NEGATIVE) 03/10/23 04:59 Urine Nitrite NEGATIVE (NEGATIVE) 03/10/23 04:59 Urine Bilirubin NEGATIVE (NEGATIVE) 03/10/23 04:59 Urine Urobilinogen 0.2 (NORMAL) E.U./dL (NORMAL) 03/10/23 04:59 Ur Leukocyte Esterase NEGATIVE (NEGATIVE) 03/10/23 04:59 Urine RBC 0-5 /HPF (0-5) 03/10/23 04:59 Urine WBC 0-3 /HPF (0-5) 03/10/23 04:59 Ur Squamous Epith Cells FEW Squamous (<= Few) 03/10/23 04:59 Urine Bacteria Many /HPF (None Seen) H 03/10/23 04:59 Urine Mucus Few Strands 03/10/23 04:59 Ur Microscopic Review INDICATED 03/10/23 04:59 Urine Culture Comments NOT INDICATED 03/10/23 04:59 Urine Creatinine 57.8 mg/dL 03/11/23 15:55 Urine Sodium 26.2 mmol/L 03/11/23 15:55 Urine Potassium 22.5 mmol/L 03/11/23 15:55 Urine HCG, Qual NEGATIVE 03/10/23 04:59 Urine Opiates Screen POSITIVE (NEGATIVE) H 03/10/23 04:59 Ur Oxycodone Screen NEGATIVE (NEGATIVE) 03/10/23 04:59 Urine Methadone Screen NEGATIVE (NEGATIVE) 03/10/23 04:59 Ur Propoxyphene Screen NEGATIVE (NEGATIVE) 03/10/23 04:59 Ur Barbiturates Screen NEGATIVE (NEGATIVE) 03/10/23 04:59 Ur Tricyclics Screen NEGATIVE (NEGATIVE) 03/10/23 04:59 Ur Phencyclidine Scrn NEGATIVE (NEGATIVE) 03/10/23 04:59 Ur Amphetamine Screen NEGATIVE (NEGATIVE) 03/10/23 04:59 U Methamphetamines Scrn NEGATIVE (NEGATIVE) 03/10/23 04:59 U Benzodiazepines Scrn POSITIVE (NEGATIVE) H 03/10/23 04:59 Urine Cocaine Screen NEGATIVE (NEGATIVE) 03/10/23 04:59 U Cannabinoids Screen NEGATIVE (NEGATIVE) 03/10/23 04:59 Ethyl Alcohol < 10.0 mg/dL 03/10/23 16:54 ABX Reporting Has patient been on IV antibiotics over the past 48 hours?: Yes Current Medications - Current Medications Current Medications: Active Medications Acetaminophen (Acetaminophen 325 Mg Tablet) 650 mg PO Q4HR PRN PRN Reason: Pain 1 to 4, or Fever Hydrocodone Bitart/Acetaminophen (Hydrocod/Acetam 10 Mg/325 Mg Tablet) 1 tab PO Q4HR PRN PRN Reason: Pain 8 to 10 Last Admin: 03/13/23 08:33 Dose: 1 tab Buprenorphine HCl (Buprenorphine/Naloxone 8-2 Mg Tab) 1 tab SL DAILY [facility] Cyclobenzaprine HCl (Cyclobenzaprine 10 Mg Tablet) 10 mg PO TID PRN PRN Reason: Spasms Last Admin: 03/12/23 21:59 Dose: 10 mg Docusate Sodium (Docusate Sodium 250 Mg Capsule) 250 - 500 mg PO DAILY [facility] Last Admin: 03/13/23 08:17 Dose: 250 mg Enoxaparin Sodium (Enoxaparin 40 Mg/0.4 Ml Syringe) 40 mg SUBQ DAILY [facility] Last Admin: 03/13/23 08:20 Dose: 40 mg Famotidine (Famotidine 20 Mg Tablet) 20 mg PO BID [facility] Last Admin: 03/13/23 08:17 Dose: 20 mg Gabapentin (Gabapentin 100 Mg Capsule) [facility] Hydromorphone HCl (Hydromorphone 0.5 Mg/0.5 Ml Syringe) 0.5 mg IVP Q6H PRN PRN Reason: Pain 8 to 10 Lidocaine (Lidocaine Patch 5%) 1 patch TOP DAILY PRN PRN Reason: Moderate Pain (Level 4-6) Last Admin: 03/12/23 09:17 Dose: 1 patch Lorazepam (Lorazepam 2 Mg/Ml Vial) 0.5 mg IVP Q2H PRN PRN Reason: Anxiety Last Admin: 03/13/23 08:33 Dose: 0.5 mg Multivitamins/Minerals (Multivitamin W/Minerals Tablet) 1 tab PO DAILYWM [facility] Last Admin: 03/13/23 10:51 Dose: 1 tab Nicotine (Nicotine 21 Mg Patch) 1 patch TOP DAILY [facility] Last Admin: 03/13/23 08:17 Dose: 1 patch Ondansetron HCl (Ondansetron Odt 4 Mg Tablet) 4 mg TL Q6HR PRN PRN Reason: Nausea / Vomiting Last Admin: 03/11/23 23:37 Dose: 4 mg Ondansetron HCl (Ondansetron 4 Mg/2 Ml Vial) 4 mg IVP Q6HR PRN PRN Reason: Nausea / Vomiting Last Admin: 03/11/23 09:43 Dose: 4 mg Polyethylene Glycol (Polyethylene Glycol 3350 17 Gm Packet) 17 gm PO DAILY [facility] Last Admin: 03/13/23 08:19 Dose: 17 gm Prochlorperazine Edisylate (Prochlorperazine 10 Mg/2 Ml Vial) 10 mg IVP Q6HR PRN PRN Reason: Nausea / Vomiting Last Admin: 03/11/23 16:08 Dose: 10 mg Senna (Senna 8.6 Mg Tablet) 8.6 - 17.2 mg PO DAILY [facility] Last Admin: 03/13/23 08:17 Dose: 8.6 mg Sodium Chloride (Sodium Chloride Flush 0.9% 10 Ml Syringe) 10 ml IVP PRN PRN PRN Reason: NEEDED PER PROVIDER ORDERS Last Admin: 03/12/23 21:57 Dose: 10 ml Sodium Chloride (Sodium Chloride Flush 0.9% 10 Ml Syringe) 10 ml IVP 0100,0900,1700 [facility] Last Admin: 03/13/23 08:20 Dose: 10 ml No Known Home Medications 03/11/23
[2023-03-13] MEDS ORDERED: MAGNESIUM HYDROXIDE 2,400 MG/30 ML UDC PO ONE (07:51)
[2023-03-13] MEDS: SENNA 8.6 MG TABLET PO SCH (08:17)
[2023-03-13] MEDS: DOCUSATE SODIUM 250 MG CAPSULE PO SCH (08:17)
[2023-03-13] MEDS: FAMOTIDINE 20 MG TABLET PO SCH ×2 (08:17→19:53)
[2023-03-13] MEDS: NICOTINE 21 MG PATCH TOP SCH (08:17)
[2023-03-13] MEDS: polyethylene glycoL 3350 17 GM PACKET PO SCH (08:19)
[2023-03-13] MEDS: ENOXAPARIN 40 MG/0.4 ML SYRINGE SUBQ SCH (08:20)
[2023-03-13] MEDS: MULTIVITAMIN W/MINERALS TABLET PO SCH (10:51)
--- NOTE | 2023-03-13 14:25 | CONSULTATION NOTE ---
Surgery Consult - Admit Date Hospital Admission Date: 03/10/23 - Consult Date Consult Date: 03/13/23 Requesting Provider: Dr. Saini - Chief Complaint Chief Complaint: Cholelithiasis - Home Meds/Allergies Home Medications: Patient History Medication Instructions Recorded Confirmed No Known Home Medications 03/11/23 03/11/23 Allergies/Adverse Reactions: Allergies Allergy/AdvReac Type Severity Reaction Status Date / Time oxycodone Allergy Unknown Verified 09/02/22 18:22 Penicillins Allergy Unknown Verified 09/02/22 18:22 Skittles Allergy Hives Verified 09/02/22 18:22 - Vital Signs Vital Signs: Last Vital Signs Temp 97.7 F 03/13/23 08:00 Pulse 77 03/13/23 08:00 Resp 16 03/13/23 08:00 BP 121/83 H 03/13/23 08:00 Pulse Ox 98 03/13/23 08:00 O2 Flow Rate Intake & Output: Intake & Output 03/10/23 03/11/23 03/12/23 03/13/23 23:59 23:59 23:59 23:59 Intake Total 1135 4804.583 6063.333 400 Output Total 150 1900 3900 600 Balance 985 2904.583 2163.333 -200 - Lab Results Result Diagrams: 03/13/23 05:51 03/13/23 05:51 - Consultation Note Consultation Note: General Surgery Consultation Note Assessment: 1) Cholelithiasis, no clinical, lab, or image evidence of acute cholecystitis, ascending cholangitis, or biliary colic 2) Generalized myalgias related to Fentanyl detoxification Recommendation: 1) Diet as tolerated 2) No indication for surgical intervention at this time <><><><><><><><><><> Reason for Consultation Generalized pain; cholelithiasis Chief Complaint Pain everywhere HPI 32 YO female who stopped using Fentanyl 2 days ago. She developed severe, generalized muscle aches around her back and abdomen. The pain was mostly on the left side. She experienced nausea and vomiting and came to the ED where she was admitted for management of Fentanyl detoxification. A RUQ US was obtained, cholelithiasis was identified, and surgery was asked to provide consultation. Today she complains of generalized discomfort. Her abdominal discomfort is mostly on the left side. She just finished eating a stew lunch without difficulty. She has been passing her urine although she experiences a burning sensation. She has passed two small bowel motions. Past Medical History Fentanyl addiction Past Surgical History Denies previous surgery [place] Re[place] drug use Current Medications See "Medication" section Allergies See "Allergy" section ROS Pertinent positives Generalized muscle aches of trunk; poor appetite All other reviewed systems negative Physical Examination Vital Signs: See "Vital Signs" section BMI: 21 GENERAL APPEARANCE: Normal development, normal body habitus, normal grooming PSYCHIATRIC: AAO; Comfortable sitting in bed after finishing her lunch EYES: Pupils equal, round and reactive to light, sclera anicteric EARS, NOSE, MOUTH, THROAT: Hearing normal, Oral mucous membranes moist and without lesions; NECK: No crepitus, lymphadenopathy, or thyromegaly LUNGS: Clear to auscultation without wheezing; No use of accessory muscles to breathe CARDIOVASCULAR: Heart-NSR without murmurs; Palpable carotid arteries - no bruits; Femoral, Pedal pulses palpable; Peripheral edema absent ABD: Soft, non-distended, no ventral herniation; No palpable masses. Generalized tenderness with palpation of all quadrants with left worse than right side. No palpable gallbladder. Negative Bateman's sign LYMPHATIC: Neck, Axillae, Groin no palpable adenopathy EXTREMITIES: No clubbing, cyanosis, infections SKIN: Anicteric; No rashes, lesions, ulcerations; Multiple tattoos Labs See "Labs" section Imaging US RUQ - cholelithiasis without gallbladder wall thickening, pericholecystic fluid, or gallbladder distension. All images were personally reviewed by me for this encounter. Kalia Naranjo MD, FACS General Surgery Service [phone]
[2023-03-13] MEDS: GABAPENTIN 100 MG CAPSULE PO SCH (17:24)
[2023-03-13] MEDS: CYCLOBENZAPRINE 10 MG TABLET PO PRN (17:24)
[2023-03-13] MEDS: BUPRENORPHINE/NALOXONE 8-2 MG TAB SL SCH (17:27)
[2023-03-14] MEDS: HYDROcod/ACETAM 10 MG/325 MG TABLET PO PRN (00:21)
[2023-03-14] MEDS: SODIUM CHLORIDE FLUSH 0.9% 10 ML SYRINGE IVP SCH ×3 (00:22→17:06)
[2023-03-14 07:54] LABS: BASOPHILS # (AUTO) 0.1 10^3/uL (0.0-0.1); BASOPHILS % (AUTO) 1.1 %; EOSINOPHILS # (AUTO) 0.3 10^3/uL (0.0-0.7); EOSINOPHILS % (AUTO) 5.7 %; HCT - HEMATOCRIT 38.6 % (37.0-47.0); HGB - HEMOGLOBIN 12.6 g/dL (12.0-16.0); LYMPHOCYTES # (AUTO) 0.7 10^3/uL (1.5-3.5); MEAN CORPUSCULAR HEMOGLOBIN 30.3 pg (27.0-31.0); MEAN CORPUSCULAR HGB CONC 32.6 g/dL (32.0-36.0); MEAN CORPUSCULAR VOLUME 92.8 fL (81.0-99.0); MEAN PLATELET VOLUME 9.6 fL (7.9-10.8); MONOCYTES # (AUTO) 0.3 10^3/uL (0.0-1.0); MONOCYTES % (AUTO) 7.3 %; NEUTROPHILS # (AUTO) 3.1 10^3/uL (1.5-6.6); NEUTROPHILS % (AUTO) 70.7 %; PLT - PLATELET COUNT 290 10^3/uL (130-450); RED BLOOD COUNT 4.16 10^6/uL (4.20-5.40); RED CELL DISTRIBUTION WIDTH 14.9 % (12.0-15.0); WHITE BLOOD COUNT 4.4 x10^3/uL (4.8-10.8)
[2023-03-14 08:15] LABS: BUN - BLOOD UREA NITROGEN 12 mg/dL (6-20); CALCIUM 9.4 mg/dL (8.5-10.3); CARBON DIOXIDE - CO2 33 mmol/L (21-32); CHLORIDE 102 mmol/L (101-111); CRP - C-REACTIVE PROTEIN < 0.5 mg/dL (<0.5); GFR - MDRD 29 (>89); GLUCOSE 97 mg/dL (74-104); POTASSIUM 3.5 mmol/L (3.5-4.5); SODIUM 140 mmol/L (135-145)
[2023-03-14] MEDS: FAMOTIDINE 20 MG TABLET PO SCH ×2 (08:29→20:43)
[2023-03-14] MEDS: MULTIVITAMIN W/MINERALS TABLET PO SCH (08:29)
[2023-03-14] MEDS: NICOTINE 21 MG PATCH TOP SCH (08:29)
[2023-03-14] MEDS: BUPRENORPHINE/NALOXONE 8-2 MG TAB SL SCH (08:29)
[2023-03-14] MEDS: SENNA 8.6 MG TABLET PO SCH (08:29)
[2023-03-14] MEDS: DOCUSATE SODIUM 250 MG CAPSULE PO SCH (08:29)
[2023-03-14] MEDS: ENOXAPARIN 40 MG/0.4 ML SYRINGE SUBQ SCH (08:30)
[2023-03-14] MEDS: polyethylene glycoL 3350 17 GM PACKET PO SCH (08:30)
--- NOTE | 2023-03-14 08:52 | Ultrasound Report ---
PROCEDURE: Abdomen Complete INDICATIONS: Follow up on gallstone and renal stone TECHNIQUE: Real-time scanning was performed of the abdominal and retroperitoneal organs, with image documentatio n. COMPARISON: Abdominal ultrasound on March 11, 2023 FINDINGS: Liver: Liver measures 17.7 cm. The parenchyma is homogeneous in echotexture. No solid mass on the pr ovided images. Previously described echogenic focus in the left hepatic lobe is not well seen. Gallbladder: Multiple gallstones and sludge, the largest of which measures 1.6 x 0.5 x 1.4 cm. Normal wall thickness. No pericholecystic fluid. No sonographic Bateman sign. Biliary ducts: Intrahepatic bile ducts are non-dilated. Extrahepatic bile duct caliber measures 6 m m adjacent to the liver and 8 mm at the level of the pancreatic head. Normal is 6-7 mm or less in di ameter, or 10 mm or less post-cholecystectomy. No sonographic evidence of obstructing stone or lesio n. Pancreas: Visualized portions of the pancreas are sonographically normal. Spleen: Spleen is normal in size and homogeneous in echotexture. Kidneys: Kidneys are normal in size and echotexture. Right kidney measures 11.6 cm long; left kidne y measures 11.4 cm long. No hydronephrosis bilaterally. Echogenic focus in the right interpolar gordon on measuring 0.6 x 1.2 x 0.9 cm. No solid masses. No complex renal cystic lesions which require follo w-up. Aorta: Visualized aorta is normal in caliber at less than 3 cm. Iliacs: Not well seen secondary to bowel gas. IVC: Intrahepatic inferior vena cava is patent. Miscellaneous: No free abdominal fluid. IMPRESSION: 1.Compared to ultrasound dated March 11, 2023, similar appearance of gallstones and sludge with n o sonographic evidence of acute cholecystitis and no positive Bateman's sign. 2.CBD is mildly dilated at 8 mm at the pancreatic head with no sonographic evidence obstructing stone or lesion. No intrahepatic biliary ductal dilatation. 3.No hydronephrosis. Similar appearance of echogenic focus in the right renal interpolar region measu ring up to 12 mm, likely a nonobstructive nephrolith. 4.Previously seen echogenic focus in the left hepatic lobe is not well seen and better characterized on prior ultrasound. Reviewed by: Tawanda Mcdaniel MD on 03/14/2023 8:50 AM PDT Approved by: Tawanda Mcdaniel MD on 03/14/2023 8:50 AM PDT Station ID: [id number]
[2023-03-14] MEDS ORDERED: BUPRENORPHINE/NALOXONE 8-2 MG TAB SL SCH (09:00)
[2023-03-14] MEDS: HYDROmorphone 0.5 MG/0.5 ML SYRINGE IVP PRN ×2 (11:17→20:42)
[2023-03-14] MEDS: ONDANSETRON 4 MG/2 ML VIAL IVP PRN (11:17)
[2023-03-14] MEDS: SODIUM CHLORIDE FLUSH 0.9% 10 ML SYRINGE IVP PRN ×2 (11:17→20:43)
[2023-03-14] MEDS: PROCHLORPERAZINE 10 MG/2 ML VIAL IVP PRN (14:21)
[2023-03-14] MEDS: GABAPENTIN 100 MG CAPSULE PO SCH (17:06)
[2023-03-14] MEDS: LORazepam 2 MG/ML VIAL IVP PRN (19:38)
--- NOTE | 2023-03-14 20:00 | PROVIDER PROGRESS NOTE ---
Assessment/Plan - Problem List (1) Acute renal failure Assessment/Plan: Improving very slowly, creatinine 2.1 yesterday>> 2.0 today However at her age, a quicker recovery of renal function after IV fluid was expected. There are concerns of other intrarenal conditions. Repeat ultrasound of renal to check the status of the renal stone remarked on a structure being present Plan: Urine electrolytes ordered. Will obtain CT abd/pelvis. If the renal stone still be a problem we might have to consider urology consultation Straining all urine Avoid nephrotoxins Follow BMP daily (2) L flank pain Assessment/Plan: There are concerns of other intrarenal conditions. Repeat ultrasound of renal to check the status of the renal stone remarked on a structure being present Plan: Will obtain CT abd/pelvis. If the renal stone still be a problem we might have to consider urology consultation. (3) GB sludge Assessment/Plan: Acute cholecystitis ruled out Consulted with surgical Dr. Naranjo, who evaluated patient and does not feel this is gallstone cholecystitis, considers her pain is from Fentanyl intoxication, no indication for surgical intervention. CRP was negative x2 Pt has received 3 days iv levofloxacin and Flagyl. No leukocytosis, no significant change of abdominal pain. Plan: We discontinued both empiric antibx to observe patient off antibiotics. (4) Narcotic withdrawal Assessment/Plan: Patient was a daily smoker of fentanyl, is willing to have fentanyl cessation. Plan: Cont to give suboxone Will stop Dilaudid (5) Hypokalemia Assessment/Plan: Resolved, after replenishment (6) Hypochloremia Assessment/Plan: Resolved, Chloride is corrected within normal limits - Current Meds Current Meds: Current Medications Generic Name Dose Route Start Last Admin Trade Name Freq PRN Reason Stop Dose Admin Hydrocodone Bitart/Acetaminophen 1 tab 03/10/23 17:50 03/14/23 00:21 Hydrocod/Acetam 10 Mg/325 Mg Tablet PO 1 tab Q4HR PRN Administration Pain 8 to 10 Buprenorphine HCl 1 tab 03/13/23 17:23 03/14/23 08:29 Buprenorphine/Naloxone 8-2 Mg Tab SL 1 tab DAILY NALINI Administration Cyclobenzaprine HCl 10 mg 03/11/23 17:03 03/13/23 17:24 Cyclobenzaprine 10 Mg Tablet PO 10 mg TID PRN Administration Spasms Docusate Sodium 250 - 500 mg 03/11/23 09:00 03/14/23 08:29 Docusate Sodium 250 Mg Capsule PO 250 mg DAILY NALINI Administration Enoxaparin Sodium 40 mg 03/11/23 09:00 03/14/23 08:30 Enoxaparin 40 Mg/0.4 Ml Syringe SUBQ 40 mg DAILY NALINI Administration Famotidine 20 mg 03/10/23 22:00 03/14/23 08:29 Famotidine 20 Mg Tablet PO 20 mg BID NALINI Administration Gabapentin 200 mg 03/13/23 17:00 03/14/23 17:06 Gabapentin 100 Mg Capsule PO 200 mg QDDINNER NALINI Administration Hydromorphone HCl 0.5 mg 03/13/23 16:38 03/14/23 11:17 Hydromorphone 0.5 Mg/0.5 Ml Syringe IVP 0.5 mg Q6H PRN Administration Pain 8 to 10 Lidocaine 1 patch 03/11/23 11:15 03/12/23 09:17 Lidocaine Patch 5% TOP 1 patch DAILY PRN Administration Moderate Pain (Level 4-6) Lorazepam 0.5 mg 03/10/23 19:02 03/14/23 19:38 Lorazepam 2 Mg/Ml Vial IVP 0.5 mg Q2H PRN Administration Anxiety Multivitamins/Minerals 1 tab 03/13/23 10:00 03/14/23 08:29 Multivitamin W/Minerals Tablet PO 1 tab DAILYWM NALINI Administration Nicotine 1 patch 03/10/23 23:00 03/14/23 08:29 Nicotine 21 Mg Patch TOP 1 patch DAILY NALINI Administration Ondansetron HCl 4 mg 03/10/23 17:50 03/11/23 23:37 Ondansetron Odt 4 Mg Tablet TL 4 mg Q6HR PRN Administration Nausea / Vomiting Ondansetron HCl 4 mg 03/10/23 17:50 03/14/23 11:17 Ondansetron 4 Mg/2 Ml Vial IVP 4 mg Q6HR PRN Administration Nausea / Vomiting Polyethylene Glycol 17 gm 03/11/23 09:00 03/14/23 08:30 Polyethylene Glycol 3350 17 Gm Packet PO 17 gm DAILY NALINI Administration Prochlorperazine Edisylate 10 mg 03/10/23 17:50 03/14/23 14:21 Prochlorperazine 10 Mg/2 Ml Vial IVP 10 mg Q6HR PRN Administration Nausea / Vomiting Senna 8.6 - 17.2 mg 03/11/23 09:00 03/14/23 08:29 Senna 8.6 Mg Tablet PO 8.6 mg DAILY NALINI Administration Sodium Chloride 10 ml 03/10/23 17:50 03/14/23 11:17 Sodium Chloride Flush 0.9% 10 Ml Syringe IVP 10 ml PRN PRN Administration NEEDED PER PROVIDER ORDERS Sodium Chloride 10 ml 03/11/23 01:00 03/14/23 17:06 Sodium Chloride Flush 0.9% 10 Ml Syringe IVP 10 ml 0100,0900,1700 NALINI Administration - Lab Result Fish Bone Diagrams: 03/14/23 07:34 03/14/23 07:34 - Additional Planning My Orders: My Active Orders 03/14/23 Dinner Regular Diet [DIET] Subjective - Subjective Patient Reports: Other (L flank pain continues, needs pain meds) Objective Vital Signs: Vital Signs - 24 hr 03/13/23 03/14/23 03/14/23 23:40 08:06 17:18 Temperature 36.3 C L 36.7 C 36.4 C L Heart Rate [ 84 61 87 Brachial] Respiratory 16 20 20 Rate Blood Pressure 120/87 H 143/98 H 131/96 H [Left Brachial artery] O2 Saturation 100 100 100 Oxygen O2 Source Room air I&O (Last 24 Hrs): Intake and Output Totals x24h 03/12/23 03/13/23 03/14/23 23:59 23:59 23:59 Intake Total 6063.333 1620 1670 Output Total 3900 1375 2150 Balance 2163.333 245 -480 General: Alert, Oriented x3, Mild distress (from L gflank pain) HEENT: Atraumatic, Mucous membr. moist/pink Neck: Supple, No JVD Neuro: Alert, Non Focal Cardiovascular: Regular rate, No murmurs Respiratory: No respiratory distress, Breath sounds nml Abdomen: Normal bowel sounds, Soft Extremities: No clubbing - Results Results: Laboratory Results WBC 4.4 x10^3/uL (4.8-10.8) L 03/14/23 07:34 RBC 4.16 10^6/uL (4.20-5.40) L 03/14/23 07:34 Hgb 12.6 g/dL (12.0-16.0) 03/14/23 07:34 Hct 38.6 % (37.0-47.0) 03/14/23 07:34 MCV 92.8 fL (81.0-99.0) 03/14/23 07:34 MCH 30.3 pg (27.0-31.0) 03/14/23 07:34 MCHC 32.6 g/dL (32.0-36.0) 03/14/23 07:34 RDW 14.9 % (12.0-15.0) 03/14/23 07:34 Plt Count 290 10^3/uL (130-450) 03/14/23 07:34 MPV 9.6 fL (7.9-10.8) 03/14/23 07:34 Neut # (Auto) 3.1 10^3/uL (1.5-6.6) 03/14/23 07:34 Lymph # (Auto) 0.7 10^3/uL (1.5-3.5) L 03/14/23 07:34 [place] # (Auto) 0.3 10^3/uL (0.0-1.0) 03/14/23 07:34 Eos # (Auto) 0.3 10^3/uL (0.0-0.7) 03/14/23 07:34 Baso # (Auto) 0.1 10^3/uL (0.0-0.1) 03/14/23 07:34 Absolute Nucleated RBC 0.00 x10^3/uL 03/14/23 07:34 Nucleated RBC % 0.0 /100WBC 03/14/23 07:34 Sodium 140 mmol/L (135-145) 03/14/23 07:34 Potassium 3.5 mmol/L (3.5-4.5) 03/14/23 07:34 Chloride 102 mmol/L (101-111) 03/14/23 07:34 Carbon Dioxide 33 mmol/L (21-32) H 03/14/23 07:34 Anion Gap 5.0 (6-13) L 03/14/23 07:34 BUN 12 mg/dL (6-20) 03/14/23 07:34 Creatinine 2.0 mg/dL (0.6-1.3) H 03/14/23 07:34 Estimated GFR (MDRD) 29 (>89) L 03/14/23 07:34 Glucose 97 mg/dL (74-104) 03/14/23 07:34 Calcium 9.4 mg/dL (8.5-10.3) 03/14/23 07:34 Magnesium 2.5 mg/dL (1.7-2.3) H 03/10/23 16:54 Total Bilirubin 0.3 mg/dL (0.2-1.0) 03/12/23 05:38 AST 15 IU/L (10-42) 03/12/23 05:38 ALT 7 IU/L (10-60) L 03/12/23 05:38 Alkaline Phosphatase 34 IU/L (42-121) L 03/12/23 05:38 C-Reactive Protein < 0.5 mg/dL (<0.5) 03/14/23 07:34 Total Protein 5.3 g/dL (6.4-8.9) L 03/12/23 05:38 Albumin 3.4 g/dL (3.2-5.5) 03/12/23 05:38 Globulin 1.9 g/dL (2.1-4.2) L 03/12/23 05:38 Albumin/Globulin Ratio 1.8 (1.0-2.2) 03/12/23 05:38 Lipase 36 U/L (11-82) 03/11/23 18:13 Urine Color YELLOW 03/10/23 04:59 Urine Clarity SL. CLOUDY (CLEAR) 03/10/23 04:59 Urine pH 6.5 PH (5.0-7.5) 03/10/23 04:59 Ur Specific [place] 1.020 (1.002-1.030) 03/10/23 04:59 Urine Protein 30 mg/dL (NEGATIVE) H 03/10/23 04:59 Urine Glucose (UA) NEGATIVE mg/dL (NEGATIVE) 03/10/23 04:59 Urine Ketones 15 mg/dL (NEGATIVE) H 03/10/23 04:59 Urine Occult Blood NEGATIVE (NEGATIVE) 03/10/23 04:59 Urine Nitrite NEGATIVE (NEGATIVE) 03/10/23 04:59 Urine Bilirubin NEGATIVE (NEGATIVE) 03/10/23 04:59 Urine Urobilinogen 0.2 (NORMAL) E.U./dL (NORMAL) 03/10/23 04:59 Ur Leukocyte Esterase NEGATIVE (NEGATIVE) 03/10/23 04:59 Urine RBC 0-5 /HPF (0-5) 03/10/23 04:59 Urine WBC 0-3 /HPF (0-5) 03/10/23 04:59 Ur Squamous Epith Cells FEW Squamous (<= Few) 03/10/23 04:59 Urine Bacteria Many /HPF (None Seen) H 03/10/23 04:59 Urine Mucus Few Strands 03/10/23 04:59 Ur Microscopic Review INDICATED 03/10/23 04:59 Urine Culture Comments NOT INDICATED 03/10/23 04:59 Urine Creatinine 57.8 mg/dL 03/11/23 15:55 Urine Sodium 26.2 mmol/L 03/11/23 15:55 Urine Potassium 22.5 mmol/L 03/11/23 15:55 Urine HCG, Qual NEGATIVE 03/10/23 04:59 Urine Opiates Screen POSITIVE (NEGATIVE) H 03/10/23 04:59 Ur Oxycodone Screen NEGATIVE (NEGATIVE) 03/10/23 04:59 Urine Methadone Screen NEGATIVE (NEGATIVE) 03/10/23 04:59 Ur Propoxyphene Screen NEGATIVE (NEGATIVE) 03/10/23 04:59 Ur Barbiturates Screen NEGATIVE (NEGATIVE) 03/10/23 04:59 Ur Tricyclics Screen NEGATIVE (NEGATIVE) 03/10/23 04:59 Ur Phencyclidine Scrn NEGATIVE (NEGATIVE) 03/10/23 04:59 Ur Amphetamine Screen NEGATIVE (NEGATIVE) 03/10/23 04:59 U Methamphetamines Scrn NEGATIVE (NEGATIVE) 03/10/23 04:59 U Benzodiazepines Scrn POSITIVE (NEGATIVE) H 03/10/23 04:59 Urine Cocaine Screen NEGATIVE (NEGATIVE) 03/10/23 04:59 U Cannabinoids Screen NEGATIVE (NEGATIVE) 03/10/23 04:59 Ethyl Alcohol < 10.0 mg/dL 03/10/23 16:54
[2023-03-15] MEDS: SODIUM CHLORIDE FLUSH 0.9% 10 ML SYRINGE IVP SCH ×3 (00:02→16:07)
[2023-03-15] MEDS: LORazepam 2 MG/ML VIAL IVP PRN ×2 (01:28→10:00)
[2023-03-15] MEDS: ONDANSETRON ODT 4 MG TABLET TL PRN (05:38)
[2023-03-15 05:51] LABS: BASOPHILS # (AUTO) 0.1 10^3/uL (0.0-0.1); BASOPHILS % (AUTO) 1.5 %; EOSINOPHILS # (AUTO) 0.1 10^3/uL (0.0-0.7); EOSINOPHILS % (AUTO) 3.6 %; HCT - HEMATOCRIT 36.4 % (37.0-47.0); HGB - HEMOGLOBIN 12.1 g/dL (12.0-16.0); LYMPHOCYTES # (AUTO) 0.8 10^3/uL (1.5-3.5); LYMPHOCYTES % (AUTO) 23.4 %; MEAN CORPUSCULAR HEMOGLOBIN 30.7 pg (27.0-31.0); MEAN CORPUSCULAR HGB CONC 33.2 g/dL (32.0-36.0); MEAN CORPUSCULAR VOLUME 92.4 fL (81.0-99.0); MEAN PLATELET VOLUME 9.4 fL (7.9-10.8); MONOCYTES # (AUTO) 0.5 10^3/uL (0.0-1.0); MONOCYTES % (AUTO) 15.5 %; NEUTROPHILS # (AUTO) 1.8 10^3/uL (1.5-6.6); NEUTROPHILS % (AUTO) 55.7 %; PLT - PLATELET COUNT 264 10^3/uL (130-450); RED BLOOD COUNT 3.94 10^6/uL (4.20-5.40); WHITE BLOOD COUNT 3.3 x10^3/uL (4.8-10.8)
[2023-03-15 06:01] LABS: CREATININE 1.8 mg/dL (0.6-1.3); POTASSIUM 3.3 mmol/L (3.5-4.5)
[2023-03-15] MEDS: MULTIVITAMIN W/MINERALS TABLET PO SCH (08:10)
[2023-03-15] MEDS: SENNA 8.6 MG TABLET PO SCH (08:10)
[2023-03-15] MEDS: DOCUSATE SODIUM 250 MG CAPSULE PO SCH (08:10)
[2023-03-15] MEDS: FAMOTIDINE 20 MG TABLET PO SCH ×2 (08:10→21:57)
[2023-03-15] MEDS: ENOXAPARIN 40 MG/0.4 ML SYRINGE SUBQ SCH (08:12)
[2023-03-15] MEDS: NICOTINE 21 MG PATCH TOP SCH (08:12)
[2023-03-15] MEDS: polyethylene glycoL 3350 17 GM PACKET PO SCH (08:13)
[2023-03-15] MEDS: CYCLOBENZAPRINE 10 MG TABLET PO PRN ×2 (08:17→21:58)
[2023-03-15] MEDS: HYDROmorphone 0.5 MG/0.5 ML SYRINGE IVP PRN ×2 (08:20→21:58)
[2023-03-15] MEDS: HYDROcod/ACETAM 10 MG/325 MG TABLET PO PRN ×3 (09:58→19:29)
[2023-03-15] MEDS ORDERED: POTASSIUM CHLORIDE 10 MEQ CAPSULE PO ONE (10:00)
--- NOTE | 2023-03-15 10:20 | CT Report ---
PROCEDURE: ABDOMEN/PELVIS WO INDICATIONS: Acute renal failure, kidney stone TECHNIQUE: A CT scan of the abdomen and pelvis was performed without the use of intravenous contrast. Images we re recorded and evaluated at appropriate window settings. Reformats: coronal and sagittal. For radiat ion dose reduction, the following was used: automated exposure control, adjustment of mA and/or kV ac cording to patient size. COMPARISON: Ultrasound abdomen 03/13/2023. FINDINGS: Image quality: Excellent. Lung bases and heart: Mild bibasilar subsegmental atelectasis. Possible trace left pleural effusion. Liver: No solid mass. Gallbladder and biliary tree: Cholelithiasis without wall thickening. No biliary dilation. Spleen: No splenomegaly. Pancreas: No pancreatic ductal dilation. Adrenals: No adrenal nodule. Kidneys and ureters: No hydronephrosis. No renal cystic lesion which requires follow up. No solid mas s. Bowel and peritoneum: No bowel distension. No pathologic free fluid. Lymph nodes: No central or retroperitoneal adenopathy. Vessels: No infrarenal aortic aneurysm. Mild atherosclerotic vascular disease. PELVIS Reproductive organs: Unremarkable. Bladder: No wall thickness, accounting for underdistention. Pelvic lymph nodes: No pelvic adenopathy by size criteria. Bones: No aggressive osseous abnormality. Subacute to chronic appearing right lateral seventh and vivi th rib fractures. Other: Small umbilical hernia containing fat. No inguinal hernias. Small subcutaneous emphysema withi n the left lower quadrant, likely injection related. IMPRESSION: 1.No hydronephrosis or obstructing renal stone. 2.Subacute to chronic appearing right lateral seventh and ninth rib fractures. Reviewed by: Perez Handy MD on 03/15/2023 10:19 AM PDT Approved by: Perez Handy MD on 03/15/2023 10:19 AM PDT Station ID: [id number]
[2023-03-15] MEDS: BUPRENORPHINE/NALOXONE 8-2 MG TAB SL SCH (12:16)
[2023-03-15] MEDS ORDERED: BUPRENORPHINE/NALOXONE 8-2 MG TAB SL SCH ×2 (12:21→21:00)
[2023-03-15] MEDS: PROCHLORPERAZINE 10 MG/2 ML VIAL IVP PRN (13:28)
[2023-03-15] MEDS: GABAPENTIN 100 MG CAPSULE PO SCH (16:06)
[2023-03-15] MEDS: SODIUM CHLORIDE FLUSH 0.9% 10 ML SYRINGE IVP PRN (16:07)
--- NOTE | 2023-03-15 18:11 | PROVIDER PROGRESS NOTE ---
Assessment/Plan - Problem List (1) Acute renal failure Assessment/Plan: Improving very slowly, creatinine yesterday 2.0>> 1.8 today However at her age, a quicker recovery of renal function after IV fluid was expected. There are concerns of other intrarenal conditions. Repeat ultrasound of renal to check the status of the renal stone remarked on a structure being present. CT abd/pelvis showed no cyst or stone, no hydronephrosis Plan: Cont straining all urine Avoid nephrotoxins Follow BMP daily (2) Breast lump Assessment/Plan: Today pt wanted her L breast examined. I offered a witness be present and she declined. I palpated a mildly tender area consistent with fibrocystic disease. Plan: She needs an outpatient mammogram and possible ultrasound. I discussed my exam finding and my recommendation with her today and she said she understood. (3) L flank pain Assessment/Plan: CT abd/pelvis showed no renal cyst or stone, but L lung aelectasis with small effusion present Plan: Cont to strain urine Cont pain meds prn I will recommend she see Urol as outpt (4) GB sludge Assessment/Plan: Acute cholecystitis ruled out. Consulted with surgical Dr. Naranjo, who evaluated patient and did not feel this is gallstone cholecystitis. He considers her pain to be from Fentanyl intoxication and withdrawal. There was no indication for surgical intervention. CRP was negative x2 Pt has received 3 days iv levofloxacin and Flagyl. No leukocytosis, no significant change of abdominal pain. Plan: We discontinued both empiric antibx to observe patient off antibiotics. (5) Narcotic withdrawal Assessment/Plan: Patient was a daily smoker of fentanyl, is willing to have fentanyl cessation. She still had some N/V yesterday. Pt feels good on this Suboxone dose. She requested todsay it be given at night o help her sleep. Dilaudid was stopped as of yesterday Plan: Cont to give suboxone. Will give 1/2 the usual dose this evening (after got am dose already), and will then switch to a full tablet qpm starting tomorrow Will order no awakening for VS [id number] (6) Hypokalemia Assessment/Plan: Needs replacement again today Follow BMP daily (7) Hypochloremia Assessment/Plan: Resolved, Chloride is corrected within normal limits - Current Meds Current Meds: Current Medications Generic Name Dose Route Start Last Admin Trade Name Freq PRN Reason Stop Dose Admin Hydrocodone Bitart/Acetaminophen 1 tab 03/10/23 17:50 03/15/23 09:58 Hydrocod/Acetam 10 Mg/325 Mg Tablet PO 1 tab Q4HR PRN Administration Pain 8 to 10 Cyclobenzaprine HCl 10 mg 03/11/23 17:03 03/15/23 08:17 Cyclobenzaprine 10 Mg Tablet PO 10 mg TID PRN Administration Spasms Docusate Sodium 250 - 500 mg 03/11/23 09:00 03/15/23 08:10 Docusate Sodium 250 Mg Capsule PO 500 mg DAILY NALINI Administration Enoxaparin Sodium 40 mg 03/11/23 09:00 03/15/23 08:12 Enoxaparin 40 Mg/0.4 Ml Syringe SUBQ 40 mg DAILY NALINI Administration Famotidine 20 mg 03/10/23 22:00 03/15/23 08:10 Famotidine 20 Mg Tablet PO 20 mg BID NALINI Administration Gabapentin 200 mg 03/13/23 17:00 03/15/23 16:06 Gabapentin 100 Mg Capsule PO 200 mg QDDINNER NALINI Administration Hydromorphone HCl 0.5 mg 03/13/23 16:38 03/15/23 08:20 Hydromorphone 0.5 Mg/0.5 Ml Syringe IVP 0.5 mg Q6H PRN Administration Pain 8 to 10 Lidocaine 1 patch 03/11/23 11:15 03/12/23 09:17 Lidocaine Patch 5% TOP 1 patch DAILY PRN Administration Moderate Pain (Level 4-6) Lorazepam 0.5 mg 03/10/23 19:02 03/15/23 10:00 Lorazepam 2 Mg/Ml Vial IVP 0.5 mg Q2H PRN Administration Anxiety Multivitamins/Minerals 1 tab 03/13/23 10:00 03/15/23 08:10 Multivitamin W/Minerals Tablet PO 1 tab DAILYWM NALINI Administration Nicotine 1 patch 03/10/23 23:00 03/15/23 08:12 Nicotine 21 Mg Patch TOP 1 patch DAILY NALINI Administration Ondansetron HCl 4 mg 03/10/23 17:50 03/15/23 05:38 Ondansetron Odt 4 Mg Tablet TL 4 mg Q6HR PRN Administration Nausea / Vomiting Ondansetron HCl 4 mg 03/10/23 17:50 03/14/23 11:17 Ondansetron 4 Mg/2 Ml Vial IVP 4 mg Q6HR PRN Administration Nausea / Vomiting Polyethylene Glycol 17 gm 03/11/23 09:00 03/15/23 08:13 Polyethylene Glycol 3350 17 Gm Packet PO 17 gm DAILY NALINI Administration Prochlorperazine Edisylate 10 mg 03/10/23 17:50 03/15/23 13:28 Prochlorperazine 10 Mg/2 Ml Vial IVP 10 mg Q6HR PRN Administration Nausea / Vomiting Senna 8.6 - 17.2 mg 03/11/23 09:00 03/15/23 08:10 Senna 8.6 Mg Tablet PO 17.2 mg DAILY NALINI Administration Sodium Chloride 10 ml 03/10/23 17:50 03/15/23 16:07 Sodium Chloride Flush 0.9% 10 Ml Syringe IVP 10 ml PRN PRN Administration NEEDED PER PROVIDER ORDERS Sodium Chloride 10 ml 03/11/23 01:00 03/15/23 16:07 Sodium Chloride Flush 0.9% 10 Ml Syringe IVP 10 ml 0100,0900,1700 NALINI Administration - Lab Result Fish Bone Diagrams: 03/16/23 10:21 03/16/23 10:21 - Additional Planning My Orders: My Active Orders 03/15/23 18:09 Miscellaenous Nursing Order [RC] QSHIFT Vital Signs- Do Not Awaken For [RC] HS 03/15/23 21:00 Buprenorphine HCl/Naloxone HCl [Suboxone 8-2 mg Tab] 0.5 tab SL QPM 03/16/23 05:00 BMP - BASIC METABOLIC PANEL [CHEM] DAILYLAB CBC - COMP BLD CT W/AUTO DIFF [HEME] DAILYLAB Subjective - Subjective Patient Reports: Feeling Better, Back Pain (Still has mild flank pain L) Objective Vital Signs: Vital Signs - 24 hr 03/14/23 03/15/23 03/15/23 23:53 07:49 15:35 Temperature 37.3 C 36.6 C 36.5 C Heart Rate [ 84 85 83 Brachial] Respiratory 18 18 20 Rate Blood Pressure 119/81 H 122/93 H 102/68 [Left Brachial artery] O2 Saturation 96 100 97 Oxygen O2 Source Room air I&O (Last 24 Hrs): Intake and Output Totals x24h 03/13/23 03/14/23 03/15/23 23:59 23:59 23:59 Intake Total 1620 2170 1030 Output Total 1375 3100 3100 Balance 245 -060 -2070 General: Alert, Oriented x3 HEENT: PERRLA, EOMI Neck: Supple, No JVD Lymphatic: no adenopathy, other (L breast has an illdefined mass at the 3 pm position, approx 3 cm wide, mobile, and tender) Neuro: Alert, Non Focal Cardiovascular: Regular rate, No murmurs Respiratory: No respiratory distress, Breath sounds nml Abdomen: Normal bowel sounds, Soft, No tenderness Genitourinary: Other (No flank tenderness) Extremities: No clubbing, No edema, No tenderness/swelling - Results Results: Laboratory Results WBC 3.3 x10^3/uL (4.8-10.8) L 03/15/23 05:23 RBC 3.94 10^6/uL (4.20-5.40) L 03/15/23 05:23 Hgb 12.1 g/dL (12.0-16.0) 03/15/23 05: Hct 36.4 % (37.0-47.0) L 03/15/23 05: MCV 92.4 fL (81.0-99.0) 03/15/23 05: MCH 30.7 pg (27.0-31.0) 03/15/23 05: MCHC 33.2 g/dL (32.0-36.0) 03/15/23 05: RDW 15.0 % (12.0-15.0) 03/15/23 05:23 Plt Count 264 10^3/uL (130-450) 03/15/23 05:23 MPV 9.4 fL (7.9-10.8) 03/15/23 05:23 Neut # (Auto) 1.8 10^3/uL (1.5-6.6) 03/15/23 05:23 Lymph # (Auto) 0.8 10^3/uL (1.5-3.5) L 03/15/23 05:23 [place] # (Auto) 0.5 10^3/uL (0.0-1.0) 03/15/23 05:23 Eos # (Auto) 0.1 10^3/uL (0.0-0.7) 03/15/23 05:23 Baso # (Auto) 0.1 10^3/uL (0.0-0.1) 03/15/23 05:23 Absolute Nucleated RBC 0.00 x10^3/uL 03/15/23 05:23 Nucleated RBC % 0.0 /100WBC 03/15/23 05:23 Sodium 137 mmol/L (135-145) 03/15/23 05:23 Potassium 3.3 mmol/L (3.5-4.5) L 03/15/23 05:23 Chloride 100 mmol/L (101-111) L 03/15/23 05:23 Carbon Dioxide 31 mmol/L (21-32) 03/15/23 05:23 Anion Gap 6.0 (6-13) 03/15/23 05:23 BUN 6 mg/dL (6-20) 03/15/23 05:23 Creatinine 1.8 mg/dL (0.6-1.3) H 03/15/23 05:23 Estimated GFR (MDRD) 33 (>89) L 03/15/23 05:23 Glucose 101 mg/dL (74-104) 03/15/23 05:23 Calcium 9.0 mg/dL (8.5-10.3) 03/15/23 05:23 Magnesium 2.5 mg/dL (1.7-2.3) H 03/10/23 16:54 Total Bilirubin 0.3 mg/dL (0.2-1.0) 03/12/23 05:38 AST 15 IU/L (10-42) 03/12/23 05:38 ALT 7 IU/L (10-60) L 03/12/23 05:38 Alkaline Phosphatase 34 IU/L (42-121) L 03/12/23 05:38 C-Reactive Protein < 0.5 mg/dL (<0.5) 03/14/23 07:34 Total Protein 5.3 g/dL (6.4-8.9) L 03/12/23 05:38 Albumin 3.4 g/dL (3.2-5.5) 03/12/23 05:38 Globulin 1.9 g/dL (2.1-4.2) L 03/12/23 05:38 Albumin/Globulin Ratio 1.8 (1.0-2.2) 03/12/23 05:38 Lipase 36 U/L (11-82) 03/11/23 18:13 Urine Color YELLOW 03/10/23 04:59 Urine Clarity SL. CLOUDY (CLEAR) 03/10/23 04:59 Urine pH 6.5 PH (5.0-7.5) 03/10/23 04:59 Ur Specific [place] 1.020 (1.002-1.030) 03/10/23 04:59 Urine Protein 30 mg/dL (NEGATIVE) H 03/10/23 04:59 Urine Glucose (UA) NEGATIVE mg/dL (NEGATIVE) 03/10/23 04:59 Urine Ketones 15 mg/dL (NEGATIVE) H 03/10/23 04:59 Urine Occult Blood NEGATIVE (NEGATIVE) 03/10/23 04:59 Urine Nitrite NEGATIVE (NEGATIVE) 03/10/23 04:59 Urine Bilirubin NEGATIVE (NEGATIVE) 03/10/23 04:59 Urine Urobilinogen 0.2 (NORMAL) E.U./dL (NORMAL) 03/10/23 04:59 Ur Leukocyte Esterase NEGATIVE (NEGATIVE) 03/10/23 04:59 Urine RBC 0-5 /HPF (0-5) 03/10/23 04:59 Urine WBC 0-3 /HPF (0-5) 03/10/23 04:59 Ur Squamous Epith Cells FEW Squamous (<= Few) 03/10/23 04:59 Urine Bacteria Many /HPF (None Seen) H 03/10/23 04:59 Urine Mucus Few Strands 03/10/23 04:59 Ur Microscopic Review INDICATED 03/10/23 04:59 Urine Culture Comments NOT INDICATED 03/10/23 04:59 Urine Creatinine 57.8 mg/dL 03/11/23 15:55 Urine Sodium 26.2 mmol/L 03/11/23 15:55 Urine Potassium 22.5 mmol/L 03/11/23 15:55 Urine HCG, Qual NEGATIVE 03/10/23 04:59 Urine Opiates Screen POSITIVE (NEGATIVE) H 03/10/23 04:59 Ur Oxycodone Screen NEGATIVE (NEGATIVE) 03/10/23 04:59 Urine Methadone Screen NEGATIVE (NEGATIVE) 03/10/23 04:59 Ur Propoxyphene Screen NEGATIVE (NEGATIVE) 03/10/23 04:59 Ur Barbiturates Screen NEGATIVE (NEGATIVE) 03/10/23 04:59 Ur Tricyclics Screen NEGATIVE (NEGATIVE) 03/10/23 04:59 Ur Phencyclidine Scrn NEGATIVE (NEGATIVE) 03/10/23 04:59 Ur Amphetamine Screen NEGATIVE (NEGATIVE) 03/10/23 04:59 U Methamphetamines Scrn NEGATIVE (NEGATIVE) 03/10/23 04:59 U Benzodiazepines Scrn POSITIVE (NEGATIVE) H 03/10/23 04:59 Urine Cocaine Screen NEGATIVE (NEGATIVE) 03/10/23 04:59 U Cannabinoids Screen NEGATIVE (NEGATIVE) 03/10/23 04:59 Ethyl Alcohol < 10.0 mg/dL 03/10/23 16:54
[2023-03-16] MEDS: SODIUM CHLORIDE FLUSH 0.9% 10 ML SYRINGE IVP SCH ×2 (00:15→09:28)
[2023-03-16] MEDS: ENOXAPARIN 40 MG/0.4 ML SYRINGE SUBQ SCH (09:28)
[2023-03-16] MEDS: polyethylene glycoL 3350 17 GM PACKET PO SCH (09:28)
[2023-03-16] MEDS: NICOTINE 21 MG PATCH TOP SCH (10:07)
[2023-03-16] MEDS: MULTIVITAMIN W/MINERALS TABLET PO SCH (10:08)
[2023-03-16] MEDS: FAMOTIDINE 20 MG TABLET PO SCH (10:08)
[2023-03-16] MEDS: SENNA 8.6 MG TABLET PO SCH (10:08)
[2023-03-16] MEDS: DOCUSATE SODIUM 250 MG CAPSULE PO SCH (10:08)
[2023-03-16] MEDS: LIDOCAINE PATCH 5% TOP PRN (10:17)
[2023-03-16 10:45] LABS: BASOPHILS % (AUTO) 0.7 %; EOSINOPHILS # (AUTO) 0.3 10^3/uL (0.0-0.7); EOSINOPHILS % (AUTO) 5.7 %; HCT - HEMATOCRIT 38.7 % (37.0-47.0); HGB - HEMOGLOBIN 12.7 g/dL (12.0-16.0); LYMPHOCYTES # (AUTO) 0.8 10^3/uL (1.5-3.5); LYMPHOCYTES % (AUTO) 19.1 %; MEAN CORPUSCULAR HEMOGLOBIN 30.2 pg (27.0-31.0); MEAN CORPUSCULAR HGB CONC 32.8 g/dL (32.0-36.0); MEAN CORPUSCULAR VOLUME 92.1 fL (81.0-99.0); MEAN PLATELET VOLUME 9.7 fL (7.9-10.8); MONOCYTES # (AUTO) 0.5 10^3/uL (0.0-1.0); MONOCYTES % (AUTO) 12.3 %; NEUTROPHILS # (AUTO) 2.7 10^3/uL (1.5-6.6); NEUTROPHILS % (AUTO) 61.7 %; PLT - PLATELET COUNT 297 10^3/uL (130-450); RED CELL DISTRIBUTION WIDTH 15.3 % (12.0-15.0); WHITE BLOOD COUNT 4.4 x10^3/uL (4.8-10.8)
[2023-03-16 11:02] LABS: CALCIUM 9.4 mg/dL (8.5-10.3); CREATININE 1.5 mg/dL (0.6-1.3); POTASSIUM 3.5 mmol/L (3.5-4.5)
--- NOTE | 2023-03-16 12:19 | DISCHARGE SUMMARY ---
Discharge Summary Admit Date: 03/10/23 Discharge Date: 03/16/23 Discharging Provider: Dr Michelle Stafford Primary Care Provider: None Condition at Discharge: Stable Discharge Disposition: 01 Home, Self Care - HPI History of Present Illness: A 32 year old female without significant medical history, however with substance dependence presented to the ED for intractable nausea vomiting, abdominal pain for the past 3 weeks. Patient reports she has been using fentanyl in the past 3 weeks, unable to eat properly, and has significant nausea vomiting and abdominal pain. She presented to the ED also asking for detoxification At time of ED presentation, portion of patient vital signs were within normal limits except mild tachycardia of heart rate 100, labs significant for severe hypokalemia of 2.6, mild hyponatremia of 131, profound hypochloremia of 77, and FIDEL with BUN/creat 54/3.4 (her baseline creatinine is in the 0.5 range). Patient was given IV fluid, IV potassium, was also medicated initially with buprenorphine and Zofran IV without relief and this was followed by Dilaudid and Ativan. She is being admitted to [facility] for further management. - HOSPITAL COURSE Hospital Course: (1) Acute renal failure Her creat improved very slowly, and at her age, a quicker recovery of renal function, after IV fluid, was expected. Therefore we were concerned of other intrarenal conditions. She had 2 renal ultrasounds to check the status of a possible renal stone, which was remarked upon being present. We strained her urine but got no stone. She then had CT abd/pelvis which was read as having no cyst or stone, or hydronephrosis. At discharge, her creat was 1.5. She needs further evaluation and referral to Nephrology and Urology. (2) L flank pain There were concerns of other intrarenal conditions causing the FIDEL, thus she had repeat retropeitoneal ultrasound to check the status of a suspected renal stone. We strained her urine but got no stone. CT abd/pelvis was done that showed no renal cyst or stone, but L lung aelectasis with small effusion present, which may have caused pain in the L flank area. On day of discharge, she requested to be tested for STDs, but then did not want to stay and have the swabs done, because her ride home was waiting. She needs an outpatient Urology eval. She was discharged with Gabapentin and Flexeril prn. (3) GB sludge Acute cholecystitis was ruled out. Consult done by Gen Surg Dr. Naranjo, who evaluated patient and did not feel this was gallstone cholecystitis. He felt her pain to be from Fentanyl withdrawal. There was no indication for surgical intervention. Pt received 3 days iv levofloxacin and Flagyl. CRP was negative x2, and with no leukocytosis and no significant change of abdominal pain, we discontinued both empiric antibiotics and observed patient off antibiotics, and she remained stable. (4) Narcotic withdrawal Patient was a daily smoker of fentanyl, but said she was willing to stop fentanyl. She got some prn Dilaudidi and was put on Suboxone and also had some N/V which was treated with anti-emetics. Dilaudid was weaned down. She was discharged with several days of Suboxone and knows to establish with a substance clinic for further management. (5) Hypokalemia Resolved, after replacement (6) Hypochloremia Chloride was corrected and was within normal limits (7) Breast lump The patient wanted her L breast examined. I offered a witness be present and she declined. I palpated a mildly tender, mobile area of the L breast at 3 0'clock position, consistent with fibrocystic disease. She needs an outpatient mammogram and possible ultrasound. I discussed my exam finding and my recommendation with her and she said she understood. - ALLERGIES Allergies/Adverse Reactions: Allergies Allergy/AdvReac Type Severity Reaction Status Date / Time oxycodone Allergy Unknown Verified 09/02/22 18:22 Penicillins Allergy Unknown Verified 09/02/22 18:22 Skittles Allergy Hives Verified 09/02/22 18:22 - MEDICATIONS Home Medications: Ambulatory Orders Medication Instructions Recorded Confirmed Buprenorphine HCl/Naloxone HCl 1 tab SL QPM #10 tab 03/16/23 [Suboxone 8-2 mg Tab] Cyclobenzaprine [Flexeril] 10 mg PO TID PRN #10 tab 03/16/23 Gabapentin [Neurontin] 200 mg PO QDDINNER #60 cap 03/16/23 - PHYSICAL EXAM AT DISCHARGE General Appearance: positive: No acute distress, Alert Eyes Bilateral: positive: Normal inspection, EOMI ENT: positive: ENT inspection nml, No signs of dehydration Neck: positive: Nml inspection, No JVD Respiratory: positive: No respiratory distress, Breath sounds nml Cardiovascular: positive: Regular rate & rhythm, No murmur Abdomen: positive: Non-tender, No organomegaly, Nml bowel sounds, No distention Back: positive: Nml inspection, Other (No CVA tenderness) Skin: positive: Warm, Dry Extremities: positive: Non-tender, No pedal edema Neurologic/Psychiatric: positive: Oriented x3, CN's nml (2-12), Motor nml - LABS Result Diagrams: 03/16/23 10:21 03/16/23 10:21 - DIAGNOSTIC IMAGING Diagnostic Imaging Results: Final report reviewed - FOLLOW UP Follow Up: She needs a PCP, a Substance Abuse clinic, and needs to see Nephrology and Urology as an outpatient. - TIME SPENT Time Spent in Discharge (Minutes): 45
--- NOTE | 2023-03-16 12:24 | Discharge Plan ---
Discharge Plan Problem Reviewed?: Yes Disposition: Home, Self Care Condition: Stable Prescriptions: Cyclobenzaprine [Flexeril] 10 mg PO TID PRN #10 tab PRN Reason: Spasms Gabapentin [Neurontin] 200 mg PO QDDINNER #60 cap Buprenorphine HCl/Naloxone HCl [Suboxone 8-2 mg Tab] 1 tab SL QPM #10 tab Diet: Regular Activity Restrictions: No Restrictions Shower Restrictions: No Driving Restrictions: No Weight Bearing: Full Weight Instruction Topics: Buprenorphine Naloxone Sublingual Tablet Health Concerns: You were hospitalized to treat back pain, which may be coming from a kidney stone, and you went through narcotic withdrawal, after stopping fentanyl use, and you had kidney failure which was very slow to recover. Please stop using fentanyl entirely. You are being discharged home with a new prescription for buprenorphine/naloxone. You should take 1 tablet daily, preferably at night. The prescription is for several days, so you need to get refills from a medical provider that you need to establish with. You were provided with locations of offices and doctors that you should get an apoointment with. You wanted to be checked for sexually transmitted diseases but then said that you would have these tests done as an outpatient, so they were not ordered here. All new prescriptions were electronically sent to the [facility] pharmacy in [place]. Plan of Treatment: As above. Care Goals: Improvement in symptoms and stabilization are the goals. Assessment: The patient understands and is agreeable with the plan. Additional Instructions or Follow Up instructions: If you have new or worsening symptoms, call your Primary Care Provider for advice, or go to an Urgent Care Center, or come to the ER. No Smoking: If you smoke, Please STOP! Call for help.
[2023-03-16 12:49] VITALS: BP 131/94; O2SAT 100
== END 2023-03-16 12:45 | disposition home or self-care (01) | DRG 683 ==
LOC: ED 15:50 → EEVIPCON 17:55 → MS2 17:55
PROVIDERS: ADMIT Internal Medicine; ATTEND Internal Medicine
DX: N17.9 Acute kidney failure, unspecified (principal); E87.1 Hypo-osmolality and hyponatremia; F11.23 Opioid dependence with withdrawal; J90 Pleural effusion, not elsewhere classified; J98.11 Atelectasis; E87.6 Hypokalemia; E87.8 Other disorders of electrolyte and fluid balance, not elsewhere classified; R00.0 Tachycardia, unspecified; K80.20 Calculus of gallbladder without cholecystitis without obstruction; N60.12 Diffuse cystic mastopathy of left breast; F41.9 Anxiety disorder, unspecified
CPT/HCPCS: 36415; 74176; 76700; 76705; 80048; 80053; 80306; 80320; 81001; 81025; 82570; 83690; 83735; 84133; 84300; 85025; 86140; 96374; 96375; 99285; A9270; J0592; J1170; J1650; J2060; Q0162; 81003; 87086

== ENCOUNTER 2023-03-28 13:03 | Emergency (ER) | payer MEDICAID ==
[2023-03-28 13:33] LABS: BASOPHILS # (AUTO) 0.1 10^3/uL (0.0-0.1); BASOPHILS % (AUTO) 0.8 %; EOSINOPHILS % (AUTO) 0.5 %; HCT - HEMATOCRIT 43.7 % (37.0-47.0); HGB - HEMOGLOBIN 14.7 g/dL (12.0-16.0); LYMPHOCYTES # (AUTO) 0.9 10^3/uL (1.5-3.5); LYMPHOCYTES % (AUTO) 10.8 %; MEAN CORPUSCULAR HEMOGLOBIN 29.6 pg (27.0-31.0); MEAN CORPUSCULAR HGB CONC 33.6 g/dL (32.0-36.0); MEAN CORPUSCULAR VOLUME 87.9 fL (81.0-99.0); MEAN PLATELET VOLUME 8.6 fL (7.9-10.8); MONOCYTES # (AUTO) 0.8 10^3/uL (0.0-1.0); MONOCYTES % (AUTO) 9.1 %; NEUTROPHILS # (AUTO) 6.7 10^3/uL (1.5-6.6); NEUTROPHILS % (AUTO) 78.7 %; PLT - PLATELET COUNT 551 10^3/uL (130-450); RED BLOOD COUNT 4.97 10^6/uL (4.20-5.40); WHITE BLOOD COUNT 8.6 x10^3/uL (4.8-10.8)
[2023-03-28 13:52] LABS: ALBUMIN 5.3 g/dL (3.2-5.5)
[2023-03-28 13:54] LABS: ALBUMIN/GLOBULIN RATIO 1.6 (1.0-2.2); BILIRUBIN,TOTAL 0.7 mg/dL (0.2-1.0); CALCIUM 10.6 mg/dL (8.5-10.3); CREATININE 1.4 mg/dL (0.6-1.3); POTASSIUM 2.8 mmol/L (3.5-4.5); TOTAL PROTEIN 8.7 g/dL (6.4-8.9)
[2023-03-28] MEDS ORDERED: HYDROmorphone 1 MG/ML CARPUJECT IVP STA ×2 (16:26→19:33)
[2023-03-28] MEDS ORDERED: ONDANSETRON 4 MG/2 ML VIAL IVP STA (16:26)
[2023-03-28] MEDS ORDERED: SODIUM CHLORIDE 0.9% 1,000 ML IV STA ×2 (16:26→19:33)
--- NOTE | 2023-03-28 16:28 | ED Physician Documentation ---
PD HPI ABD PAIN - Stated complaint Stated Complaint: BACK PX - Chief complaint Chief Complaint: Abd Pain - History obtained from History obtained from: Patient - Additional information Additional information: 33-year-old woman who was admitted at the end of February with nausea vomiting abdominal pain thought related to fentanyl abuse and withdrawal. She had severe hypokalemia and hypochloremia with acute for kidney failure. The discharge summary was reviewed and she had a CT of the abdomen pelvis during that visit without hydronephrosis or renal stone. She was treated medically with fluids and electrolyte replacement and on discharge her creatinine was 1.5 and her electrolytes were normal. States that she is not doing well in the interim with continued nausea and vomiting and abdominal and flank pain. She is constipated. No blood from either end. She feels like her hands are cramping. Previous to the prior admission she was otherwise healthy, does not take meds. No possibility of . PD PAST MEDICAL HISTORY - Past Medical History Cardiovascular: None Respiratory: None Neuro: None Endocrine/Autoimmune: None GI: None ELEMENTARY SUPERVISOR: None : None HEENT: None Psych: None, Other Musculoskeletal: None Derm: Other - Past Surgical History Past Surgical History: No - Present Medications Home Medications: Ambulatory Orders Medication Instructions Recorded Confirmed Buprenorphine HCl/Naloxone HCl 1 tab SL QPM #10 tab 03/16/23 [Suboxone 8-2 mg Tab] Cyclobenzaprine [Flexeril] 10 mg PO TID PRN #10 tab 03/16/23 Gabapentin [Neurontin] 200 mg PO QDDINNER #60 cap 03/16/23 Potassium Chloride 10 meq PO BID #10 tab 03/28/23 - Allergies Allergies/Adverse Reactions: Allergies Allergy/AdvReac Type Severity Reaction Status Date / Time oxycodone Allergy Unknown Verified 03/28/23 13:07 Penicillins Allergy Unknown Verified 03/28/23 13:07 Skittles Allergy Hives Verified 03/28/23 13:07 - Social History Does the pt smoke?: No Smoking Status: Current every day smoker Does the pt drink ETOH?: Yes Does the pt have substance abuse?: No - Immunizations Immunizations are current?: Yes - POLST Patient has POLST: No POLST Status: Full Code PD ED PE NORMAL - Vitals Vital signs reviewed: Yes - General General: Alert and oriented X 3, No acute distress - Cardiac Cardiac: RRR, No murmur - Respiratory Respiratory: No respiratory distress, Clear bilaterally - Abdomen Abdomen: Non tender - Back Back: Other (Bilateral flank tenderness without rash.) - Derm Derm: Normal color, Warm and dry - Extremities Extremities: No edema - Neuro Neuro: Alert and oriented X 3, Normal speech Results - Vitals Vitals: Vital Signs - 24 hr 03/28/23 03/28/23 13:07 18:22 Temperature 36.2 C L Heart Rate 128 H 85 Respiratory 20 16 Rate Blood Pressure 127/96 H 118/96 H O2 Saturation 96 94 Oxygen O2 Source Room air - Labs Labs: Laboratory Tests 03/28/23 03/28/23 13:28 13:28 WBC 8.6 RBC 4.97 Hgb 14.7 Hct 43.7 MCV 87.9 MCH 29.6 MCHC 33.6 RDW 15.0 Plt Count 551 H MPV 8.6 Neut # (Auto) 6.7 H Lymph # (Auto) 0.9 L Mellette # (Auto) 0.8 Eos # (Auto) 0.0 Baso # (Auto) 0.1 Absolute Nucleated RBC 0.00 Nucleated RBC % 0.0 Sodium 137 Potassium 2.8 L Chloride 81 L Carbon Dioxide 36 H Anion Gap 20.0 H BUN 28 H Creatinine 1.4 H Estimated GFR (MDRD) 44 L Glucose 102 Calcium 10.6 H Total Bilirubin 0.7 AST 21 ALT 13 Alkaline Phosphatase 71 Total Protein 8.7 Albumin 5.3 Globulin 3.4 Albumin/Globulin Ratio 1.6 Lipase 15 PD Medical Decision Making - ED course ED course: 33-year-old woman presents with flank pain, continued vomiting. Similar to prior withdrawal, her indices are not nearly as bad as last time, her potassium is 2.8 and her chloride is 81 with a mild contraction alkalosis and normal CBC. I do not see an indication for repeat imaging given recent normal CT. We will hydrate her, replete her potassium and treat her symptoms. Later in her stay she told me she had been using again, methamphetamines and fentanyl. She received 2K riders here as well as oral potassium which she tolerated well. Couple doses of meds for her symptoms and IV fluids. Departure - Departure Disposition: 01 Home, Self Care Clinical Impression: Narcotic withdrawal, Hypokalemia Condition: Good Record reviewed to determine appropriate education?: Yes Instructions: Hypokalemia Dc, ED Drug Abuse General Prescriptions: Potassium Chloride 10 meq PO BID #10 tab Comments: You were seen today for dehydration and low potassium levels. Not nearly as bad as it was a couple of weeks ago when you were admitted. Unfortunately you have relapse onto drugs and We think you would benefit from admission for detoxification and/or rehabilitation from alcohol and/or drugs. The closest [facility] that does this is in [place]. It is: [facility] [address] [place] [address] Call them at [phone] to arrange an intake appointment. Forms: PCP List
[2023-03-28] MEDS: POTASSIUM CHLOR 10 MEQ/100 ML 10 MEQ/100 ML BAG IV SCH ×2 (17:33→19:24)
[2023-03-28] MEDS ORDERED: POTASSIUM BICARB 25 MEQ TABLET PO STA (17:55)
[2023-03-28] MEDS ORDERED: ONDANSETRON ODT 4 MG Prepack 2 TL STA (20:59)
[2023-03-28 21:02] VITALS: BP 125/84; O2SAT 98
== END 2023-03-28 21:13 | disposition home or self-care (01) ==
LOC: ED 13:03
DX: F11.23 Opioid dependence with withdrawal (principal); E87.6 Hypokalemia; F17.200 Nicotine dependence, unspecified, uncomplicated
CPT/HCPCS: 36415; 80053; 83690; 85025; 96365; 96366; 96375; 96376; 99283; A9270; J1170

== ENCOUNTER 2023-04-20 08:26 | Outpatient (CLI) | payer MEDICAID | END 2023-04-20 23:59 | disposition critical access hospital (66) | LOC: EMS 08:26 | DX: I95.9 Hypotension, unspecified (principal); R05.9 Cough, unspecified; R53.1 Weakness | CPT/HCPCS: A0425; A0429; A0999 ==

== ENCOUNTER 2023-04-20 08:47 | Inpatient (IN) | payer MEDICAID ==
[2023-04-20] MEDS ORDERED: SODIUM CHLORIDE 0.9% 1,000 ML IV STA (09:03)
--- NOTE | 2023-04-20 09:04 | ED Physician Documentation ---
PD HPI SYNCOPE - Stated complaint Stated Complaint: FALL - History obtained from History obtained from: Patient - History of Present Illness Witnessed: Witnessed Timing - onset: Today, Last night Duration: Hours (patient is at [facility] the past 2 1/3 days and being treated for Fentanyl use disorder with Buprenorphine, Phenergan, Hydroxyzine, Trazodone at night, Gabapentin 300 tid, and had other PRN meds but not appeared to have been needed according to MAR from [facility]. Pt was confused, lightheaded and fainted.) Preceding symptoms: Light headed, Generalized weakness, Other (sleepy and confused since last night, worse today. less intake. Nausea. pt states some vomiting prior to intake there.) Associated symptoms: Nausea / vomiting. No: Seizure, Abdominal pain Contributing factors: Decreased PO intake, Just stood up Injury occurred: Fell, Head injury Treatment COLLECTIONS REPRESENTATIVE: Fluids Similar symptoms before: Has not had sx before Recently seen: Admitted (she was at [facility] center to past 2 1/2 days being treated for Fentanyl use disorder. Has been using Fentanyl regularly the past 6- 8 months.) Review of Systems Constitutional: denies: Fever Nose: reports: Rhinorrhea / runny nose. denies: Congestion Throat: denies: Sore throat Respiratory: denies: Cough GI: reports: Nausea, Vomiting. denies: Abdominal Pain, Diarrhea Neurologic: reports: Confused (per caregivers there). 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 : None HEENT: None Psych: None, Other Musculoskeletal: None Derm: Other - Past Surgical History Past Surgical History: No - Present Medications Home Medications: Ambulatory Orders Medication Instructions Recorded Confirmed Buprenorphine HCl/Naloxone HCl 1 tab SL QPM #10 tab 03/16/23 [Suboxone 8-2 mg Tab] Cyclobenzaprine [Flexeril] 10 mg PO TID PRN #10 tab 03/16/23 Gabapentin [Neurontin] 200 mg PO QDDINNER #60 cap 03/16/23 Potassium Chloride 10 meq PO BID #10 tab 03/28/23 - Allergies Allergies/Adverse Reactions: Allergies Allergy/AdvReac Type Severity Reaction Status Date / Time oxycodone Allergy Unknown Verified 04/20/23 09:04 Penicillins Allergy Unknown Verified 04/20/23 09:04 Skittles Allergy Hives Verified 04/20/23 09:04 - Living Situation Living Arrangement: reports: At home - Social History Does the pt smoke?: No Smoking Status: Current every day smoker Does the pt drink ETOH?: Yes Does the pt have substance abuse?: Yes Substance Use and Type: Other (fentanyl.) - Immunizations Immunizations are current?: Yes - POLST Patient has POLST: No POLST Status: Full Code PD ED PE NORMAL - Vitals Vital signs reviewed: Yes - General General: No acute distress, Well developed/nourished, Other (somnolent but eyes open. Seems sluggish for answering questions. Does answer appropriately. ) - HEENT HEENT: Atraumatic, PERRL, EOMI (no nystagmus.) - Neck Neck: Supple, no meningeal sign, No bony TTP, No adenopathy - Cardiac Cardiac: RRR, No murmur - Respiratory Respiratory: Clear bilaterally - Abdomen Abdomen: Soft, Non tender - Derm Derm: Normal color, Warm and dry - Extremities Extremities: Normal ROM s pain, Other (normal knee reflexes.) - Neuro Neuro: Alert and oriented X 3 (but sluggish answering), No motor deficit, No sensory deficit, Normal speech Results - Vitals Vitals: Vital Signs - 24 hr 04/20/23 04/20/23 04/20/23 08:52 09:38 11:18 Temperature 35.7 C L 37 C 36.4 C L Heart Rate 77 74 76 Respiratory 15 17 16 Rate Blood Pressure 109/66 90/65 109/67 O2 Saturation 92 92 99 04/20/23 04/20/23 13:03 15:11 Temperature Heart Rate 72 82 Respiratory 17 18 Rate Blood Pressure 128/74 116/58 L O2 Saturation 100 100 Oxygen O2 Source Room air - Labs Labs: Laboratory Tests 04/20/23 04/20/23 04/20/23 09:23 09:23 09:54 WBC 13.3 H RBC 4.37 Hgb 12.8 Hct 36.7 L MCV 84.0 MCH 29.3 MCHC 34.9 RDW 13.3 Plt Count 314 MPV 8.4 Neut # (Auto) 11.7 H Lymph # (Auto) 0.6 L Maries # (Auto) 0.8 Eos # (Auto) 0.0 Baso # (Auto) 0.1 Absolute Nucleated RBC 0.00 Nucleated RBC % 0.0 VBG pH VBG pCO2 VBG pO2 VBG HCO3 VBG Total CO2 VBG O2 Saturation VBG Base Excess Sodium 118 L* Potassium 2.4 L* Chloride 64 L* Carbon Dioxide > 45 H* Anion Gap TNP BUN 31 H Creatinine 1.6 H Estimated GFR (MDRD) 38 L Glucose 122 H Calcium 9.3 Magnesium 1.9 Total Bilirubin 0.4 AST 18 ALT 9 L Alkaline Phosphatase 61 Total Protein 6.9 Albumin 4.3 Globulin 2.6 Albumin/Globulin Ratio 1.7 Lipase 68 TSH Urine Color Urine Clarity Urine pH Ur Specific Dodge Urine Protein Urine Glucose (UA) Urine Ketones Urine Occult Blood Urine Nitrite Urine Bilirubin Urine Urobilinogen Ur Leukocyte Esterase Ur Microscopic Review Urine Culture Comments Urine HCG, Qual Nasal Adenovirus (PCR) NOT DETECTED Nasal B. parapertussis DNA (PCR) NOT DETECTED Nasal Coronavir 229E PCR NOT DETECTED Nasal Coronavir HKU1 PCR NOT DETECTED Nasal Coronavir NL63 PCR NOT DETECTED Nasal Coronavir OC43 PCR NOT DETECTED Nasal Enterovir/Rhinovir PCR NOT DETECTED Nasal Influenza B PCR NOT DETECTED Nasal Influenza A PCR NOT DETECTED Nasal Parainfluen 1 PCR NOT DETECTED Nasal Parainfluen 2 PCR NOT DETECTED Nasal Parainfluen 3 PCR NOT DETECTED Nasal Parainfluen 4 PCR NOT DETECTED Nasal RSV (PCR) NOT DETECTED Nasal B.pertussis DNA PCR NOT DETECTED Nasal C.pneumoniae (PCR) NOT DETECTED Oziel Human Metapneumo PCR NOT DETECTED Nasal M.pneumoniae (PCR) NOT DETECTED Nasal SARS-CoV-2 (PCR) NOT DETECTED Salicylates < 1.5 Urine Opiates Screen Ur Oxycodone Screen Urine Methadone Screen Ur Propoxyphene Screen Acetaminophen 0.2 Ur Barbiturates Screen Ur Tricyclics Screen Ur Phencyclidine Scrn Ur Amphetamine Screen U Methamphetamines Scrn U Benzodiazepines Scrn Urine Cocaine Screen U Cannabinoids Screen Ethyl Alcohol < 10.0 04/20/23 04/20/23 04/20/23 10:22 10:40 11:43 WBC RBC Hgb Hct MCV MCH MCHC RDW Plt Count MPV Neut # (Auto) Lymph # (Auto) Maries # (Auto) Eos # (Auto) Baso # (Auto) Absolute Nucleated RBC Nucleated RBC % VBG pH 7.452 H VBG pCO2 64.1 H VBG pO2 25.4 VBG HCO3 43.8 H VBG Total CO2 45.7 H VBG O2 Saturation 52.8 L VBG Base Excess 16.5 H Sodium 118 L* Potassium 2.0 L* Chloride 69 L* Carbon Dioxide 43 H* Anion Gap 6.0 BUN 29 H Creatinine 1.5 H Estimated GFR (MDRD) 41 L Glucose 102 Calcium 8.9 Magnesium Total Bilirubin AST ALT Alkaline Phosphatase Total Protein Albumin Globulin Albumin/Globulin Ratio Lipase TSH Urine Color YELLOW Urine Clarity CLEAR Urine pH 6.0 Ur Specific Dodge <=1.005 Urine Protein NEGATIVE Urine Glucose (UA) NEGATIVE Urine Ketones NEGATIVE Urine Occult Blood NEGATIVE Urine Nitrite NEGATIVE Urine Bilirubin NEGATIVE Urine Urobilinogen 0.2 (NORMAL) Ur Leukocyte Esterase NEGATIVE Ur Microscopic Review NOT INDICATED Urine Culture Comments NOT INDICATED Urine HCG, Qual NEGATIVE Nasal Adenovirus (PCR) Nasal B. parapertussis DNA (PCR) Nasal Coronavir 229E PCR Nasal Coronavir HKU1 PCR Nasal Coronavir NL63 PCR Nasal Coronavir OC43 PCR Nasal Enterovir/Rhinovir PCR Nasal Influenza B PCR Nasal Influenza A PCR Nasal Parainfluen 1 PCR Nasal Parainfluen 2 PCR Nasal Parainfluen 3 PCR Nasal Parainfluen 4 PCR Nasal RSV (PCR) Nasal B.pertussis DNA PCR Nasal C.pneumoniae (PCR) Oziel Human Metapneumo PCR Nasal M.pneumoniae (PCR) Nasal SARS-CoV-2 (PCR) Salicylates Urine Opiates Screen NEGATIVE Ur Oxycodone Screen NEGATIVE Urine Methadone Screen NEGATIVE Ur Propoxyphene Screen NEGATIVE Acetaminophen Ur Barbiturates Screen NEGATIVE Ur Tricyclics Screen NEGATIVE Ur Phencyclidine Scrn NEGATIVE Ur Amphetamine Screen NEGATIVE U Methamphetamines Scrn NEGATIVE U Benzodiazepines Scrn NEGATIVE Urine Cocaine Screen NEGATIVE U Cannabinoids Screen NEGATIVE Ethyl Alcohol 04/20/23 04/20/23 04/20/23 14:53 14:53 14:53 WBC RBC Hgb Hct MCV MCH MCHC RDW Plt Count MPV Neut # (Auto) Lymph # (Auto) Maries # (Auto) Eos # (Auto) Baso # (Auto) Absolute Nucleated RBC Nucleated RBC % VBG pH VBG pCO2 VBG pO2 VBG HCO3 VBG Total CO2 VBG O2 Saturation VBG Base Excess Sodium 126 L Potassium 2.2 L* Chloride 82 L Carbon Dioxide 43 H* Anion Gap 1.0 L BUN 22 H Creatinine 1.2 Estimated GFR (MDRD) 52 L Glucose 148 H Calcium 7.9 L Magnesium 1.6 L Total Bilirubin AST ALT Alkaline Phosphatase Total Protein Albumin Globulin Albumin/Globulin Ratio Lipase TSH 0.45 Urine Color Urine Clarity Urine pH Ur Specific Dodge Urine Protein Urine Glucose (UA) Urine Ketones Urine Occult Blood Urine Nitrite Urine Bilirubin Urine Urobilinogen Ur Leukocyte Esterase Ur Microscopic Review Urine Culture Comments Urine HCG, Qual Nasal Adenovirus (PCR) Nasal B. parapertussis DNA (PCR) Nasal Coronavir 229E PCR Nasal Coronavir HKU1 PCR Nasal Coronavir NL63 PCR Nasal Coronavir OC43 PCR Nasal Enterovir/Rhinovir PCR Nasal Influenza B PCR Nasal Influenza A PCR Nasal Parainfluen 1 PCR Nasal Parainfluen 2 PCR Nasal Parainfluen 3 PCR Nasal Parainfluen 4 PCR Nasal RSV (PCR) Nasal B.pertussis DNA PCR Nasal C.pneumoniae (PCR) Oziel Human Metapneumo PCR Nasal M.pneumoniae (PCR) Nasal SARS-CoV-2 (PCR) Salicylates Urine Opiates Screen Ur Oxycodone Screen Urine Methadone Screen Ur Propoxyphene Screen Acetaminophen Ur Barbiturates Screen Ur Tricyclics Screen Ur Phencyclidine Scrn Ur Amphetamine Screen U Methamphetamines Scrn U Benzodiazepines Scrn Urine Cocaine Screen U Cannabinoids Screen Ethyl Alcohol - Rads (name of study) head CT Relevant Findings:: Prelim report reviewed, EMP independent interpretation of test (no acute ICH. ) PD Medical Decision Making - ED course Complexity details: reviewed results (The patient has been at a 2 for 3 days. Her medication list shows she had received the Suboxone in tablet form. Also medications given were promethazine, methocarbamol 7 urine 50 mg 2 tablets twice daily, trazodone at night for sleep, and hydroxyzine for anxiety. Appears ove rmedicated on exam.), re-evaluated patient (She is appearing much more alert after just some IV fluids and initiating saline. She is more conversant at this time.), considered differential (consider medication effects, electrolytes, glucose levels, co-ingestions, intoxication, among other processes. ), d/w patient, d/w senior market intelligence consultant (I talked with on-call nephrology from [facility] who recommended hypertonic saline and then watching the sodium closely with a slow infusion of saline. Recommended every 3-4 hour BMP.) Reviewed Lab Results: low sodium and potssium. CO2 level elevated but pt alertness improving and her respiratory status is adequate. CO2 improved on repeat labs. kThere may be some effect of the medications given at [facility], including some confusion or such from trazodone, gabapentin, Phenergan as the most likley for sedation. However, checking labs, found a very low sodium, which is new compared to March 2023 when was 137. K also low and usually not. Her creatinine level is about baseline, nd is actually better than earlier in the year when Creatinine was over 2. Currently 1.6. Gave pt IV fluid bolus for potetial underhydration leading to syncope. Labs orderedc and pt on heart monitor. BP and HR good. With low Na noted at 118, the patient given IV fluids at slower rate after the initial NS bolus (prior to lab results). Given LR at 100 ml/her with Potassium riders x 3. She seemed more promptly answering and alert after fluids. Talked with Dr. Wang hospitalist, who asked that I consult Nephrology. The patient was given 3% saline at just 50 ml over 30 min. I did talk with reservations specialist Nephrology at [facility] for phone consult. He direcdted the hypertonic saline 50-100 ml, then lower isotonic sodium fluid and recheck chem panel every 2-3 hours. Replace potassium. No other testing advised at this point. To consult again if further questions. I conveyed this to Dr. Wang. We do not have ICU beds available at this time, so to give the hypertonic saline and recheck labs and pt can be admitted to med/surg rather than ICU once more alert and sodium over 125. Recheck of the labs after few hours shoed the sodium had improved to 126 (mainly after the hypertonic saline). The continued fluid infusion was now to remain low as not wanting any quicker rate of rise of the sodium level. Contacted Hositalist again and gave update. Hospitalist will wriste orders. Pt stay in ER was extended with the above treatments to allow enough improvement to not need ICU bed. - Critical Care Time(min): 50 Comments: criticl low sodium. altered mental status, fainting episdoe COLLECTIONS REPRESENTATIVE. Required hypertonic saline, blood test sequential reassessment, and adjusting medicaitons. ICU level of monitoring. Time Includes: Direct patient care, Reassess patient, Document care, Medical consult Data interpretation: Labs, Pulse ox, ABG Departure - Departure Disposition: 66 [facility] DC/Xfer Clinical Impression: Altered mental status, Syncope, Acute hyponatremia, Chronic renal insufficiency, Fentanyl use disorder, moderate Condition: Stable Discharge Date/Time: 04/20/23 16:35
[2023-04-20 09:29] LABS: BASOPHILS # (AUTO) 0.1 10^3/uL (0.0-0.1); BASOPHILS % (AUTO) 0.5 %; EOSINOPHILS % (AUTO) 0.3 %; HCT - HEMATOCRIT 36.7 % (37.0-47.0); HGB - HEMOGLOBIN 12.8 g/dL (12.0-16.0); LYMPHOCYTES # (AUTO) 0.6 10^3/uL (1.5-3.5); LYMPHOCYTES % (AUTO) 4.6 %; MEAN CORPUSCULAR HEMOGLOBIN 29.3 pg (27.0-31.0); MEAN CORPUSCULAR HGB CONC 34.9 g/dL (32.0-36.0); MEAN PLATELET VOLUME 8.4 fL (7.9-10.8); MONOCYTES # (AUTO) 0.8 10^3/uL (0.0-1.0); MONOCYTES % (AUTO) 6.1 %; NEUTROPHILS # (AUTO) 11.7 10^3/uL (1.5-6.6); NEUTROPHILS % (AUTO) 87.9 %; PLT - PLATELET COUNT 314 10^3/uL (130-450); RED BLOOD COUNT 4.37 10^6/uL (4.20-5.40); RED CELL DISTRIBUTION WIDTH 13.3 % (12.0-15.0); WHITE BLOOD COUNT 13.3 x10^3/uL (4.8-10.8)
[2023-04-20 09:46] LABS: ACETAMINOPHEN 0.2 ug/mL; ALBUMIN 4.3 g/dL (3.2-5.5); ETOH - ETHANOL < 10.0 mg/dL; LIPASE 68 U/L (11-82); MAGNESIUM 1.9 mg/dL (1.7-2.3)
[2023-04-20 09:47] LABS: SALICYLATE < 1.5 mg/dL
[2023-04-20 09:50] LABS: ALBUMIN/GLOBULIN RATIO 1.7 (1.0-2.2); ALKALINE PHOSPHATASE 61 IU/L (42-121); ALT ALANINE AMINOTRANSFERASE 9 IU/L (10-60); AST ASPARTATE AMINOTRANSFERASE 18 IU/L (10-42); BILIRUBIN,TOTAL 0.4 mg/dL (0.2-1.0); BUN - BLOOD UREA NITROGEN 31 mg/dL (6-20); CALCIUM 9.3 mg/dL (8.5-10.3); CARBON DIOXIDE - CO2 > 45 mmol/L (21-32); CHLORIDE 64 mmol/L (101-111); CREATININE 1.6 mg/dL (0.6-1.3); GFR - MDRD 38 (>89); GLUCOSE 122 mg/dL (74-104); POTASSIUM 2.4 mmol/L (3.5-4.5); SODIUM 118 mmol/L (135-145); TOTAL PROTEIN 6.9 g/dL (6.4-8.9)
[2023-04-20] MEDS ORDERED: LACTATED RINGERS 1,000 ML IV STA (10:00)
[2023-04-20] MEDS: POTASSIUM CHLOR 10 MEQ/100 ML 10 MEQ/100 ML BAG IV SCH ×6 (10:15→23:11)
[2023-04-20 10:47] LABS: VBG PCO2 64.1 mmHg (41-51); VBG PH 7.452 (7.31-7.41); VBG PO2 25.4 mmHg (25-47)
[2023-04-20 10:48] LABS: VBG BASE EXCESS 16.5 mmol/L (-2 - +2); VBG HCO3 43.8 mmol/L (23-28); VBG OXYGEN SATURATION 52.8 % (60-80); VBG TOTAL CO2 45.7 mmol/L (24-29)
[2023-04-20 10:54] LABS: B. PARAPERTUSSIS- RESP PCR PAN NOT DETECTED; B. PERTUSSIS- RESP PCR PANEL NOT DETECTED; C. PNEUMONIAE- RESP PCR PANEL NOT DETECTED; CORONAVIRUS 229E-RESP PCR NOT DETECTED; CORONAVIRUS HKU1-RESP PCR NOT DETECTED; CORONAVIRUS NL63-RESP PCR NOT DETECTED; CORONAVIRUS OC43-RESP PCR NOT DETECTED; HUMAN METAPNEUMOVIRUS NOT DETECTED; INFLUENZA A- RESP PCR PANEL NOT DETECTED; INFLUENZA B - RESP PCR PANEL NOT DETECTED; M. PNEUMONIAE- RESP PCR PANEL NOT DETECTED; PARAINFLUENZA VIRUS 1 NOT DETECTED; PARAINFLUENZA VIRUS 2 NOT DETECTED; PARAINFLUENZA VIRUS 3 NOT DETECTED; PARAINFLUENZA VIRUS 4 NOT DETECTED; RHINOVIRUS/ENTEROVIRUS NOT DETECTED; RSV- RESP PCR PANEL NOT DETECTED; SARS-CoV-2 -RESP PCR PANEL NOT DETECTED
[2023-04-20 11:56] LABS: MUDS CUTOFF CONCENTRATIONS CUTOFF CONC BELOW:
[2023-04-20 12:03] LABS: BILIRUBIN,URINE NEGATIVE (NEGATIVE); GLUCOSE, URINE (UA) NEGATIVE (NEGATIVE); KETONES,URINE (UA) NEGATIVE (NEGATIVE); LEUKOCYTE ESTERASE, URINE NEGATIVE (NEGATIVE); NITRITE,URINE NEGATIVE (NEGATIVE); OCCULT BLOOD,URINE NEGATIVE (NEGATIVE); PROTEIN,URINE NEGATIVE (NEGATIVE); UROBILINOGEN,URINE 0.2 (NORMAL) E.U./dL (NORMAL)
--- NOTE | 2023-04-20 12:03 | CT Report ---
PROCEDURE: HEAD WO INDICATIONS: CONFUSION TECHNIQUE: Noncontrast 4.5 mm thick angled axial sections acquired from the foramen magnum to the vertex. For r adiation dose reduction, the following was used: automated exposure control, adjustment of mA and/or kV according to patient size. COMPARISON: 01/06/2023 FINDINGS: Image quality: Good CSF spaces: Basal cisterns are patent. Lateral ventricles are symmetric. Brain: No intracranial hemorrhage. Figueroa-white differentiation is grossly maintained. Craniofacial structures: No displaced fracture. Sinuses are clear. Orbits are intact. IMPRESSION: No acute intracranial normality. No intracranial hematoma or gross loss of figueroa-white differentiation . If there is high concern for parenchymal pathology, consider further evaluation with MRI. Reviewed by: Uriel Hernnadez MD on 04/20/2023 12:02 PM PST Approved by: Uriel Hernandez MD on 04/20/2023 12:02 PM PST Station ID: [id number]
[2023-04-20 12:04] LABS: HCG UR QUAL NEGATIVE
[2023-04-20 12:07] LABS: CLARITY,URINE CLEAR (CLEAR)
[2023-04-20 12:12] LABS: AMPHETAMINE SCREEN,URINE NEGATIVE (NEGATIVE); BARBITURATE SCREEN,UR NEGATIVE (NEGATIVE); BENZODIAZEPINES SCREEN, URINE NEGATIVE (NEGATIVE); COCAINE SCREEN URINE NEGATIVE (NEGATIVE); METHADONE SCREEN, URINE NEGATIVE (NEGATIVE); METHAMPHETAMINES SCREEN, URINE NEGATIVE (NEGATIVE); OPIATE SCREEN, URINE NEGATIVE (NEGATIVE); OXYCODONE SCREEN, URINE NEGATIVE (NEGATIVE); PROPOXYPHENE SCREEN, URINE NEGATIVE (NEGATIVE); THC CANNABINOID SCREEN, URINE NEGATIVE (NEGATIVE); TRICYCLIC ANTIDEPRESSANT,URINE NEGATIVE (NEGATIVE)
[2023-04-20 13:00] LABS: CALCIUM 8.9 mg/dL (8.5-10.3); CREATININE 1.5 mg/dL (0.6-1.3)
[2023-04-20] MEDS ORDERED: ONDANSETRON 4 MG/2 ML VIAL IVP PRN (13:59)
[2023-04-20] MEDS ORDERED: SODIUM CHLORIDE 3% HYPERTONIC 50 ML IV SCH (14:00)
[2023-04-20] MEDS ORDERED: BUPRENORPHINE/NALOXONE 8-2 MG TAB SL SCH ×2 (14:10→21:00)
[2023-04-20 15:13] LABS: POTASSIUM 2.2 mmol/L (3.5-4.5)
[2023-04-20 15:14] LABS: CALCIUM 7.9 mg/dL (8.5-10.3); CREATININE 1.2 mg/dL (0.6-1.3)
[2023-04-20] MEDS ORDERED: ACETAMINOPHEN 325 MG TABLET PO PRN ×2 (15:47→18:17)
[2023-04-20] MEDS ORDERED: SODIUM CHLORIDE FLUSH 0.9% 10 ML SYRINGE IVP PRN ×2 (15:47→18:17)
--- NOTE | 2023-04-20 16:07 | HISTORY & PHYSICAL EXAMINATION ---
Chief Complaint - Chief Complaint Chief Complaint: Fall History of Present Illness - Admitted From Admitted From:: ED - History Obtained From Records Reviewed: Yes History obtained from: Patient, ED Exam Limitations: Patient is encephalopathic and a poor historian - History of Present Illness HPI Comment/Other: Patient is a 33-year-old female with past medical history of opioid use disorder currently on Suboxone, alcohol abuse who presented to the ED after sustaining a fall at her alcohol treatment center. Patient is reportedly established with a substance abuse clinic where she receives Suboxone. In the ED she was noted to have a sodium of 118, potassium 2.4, and bicarb greater than 45. Patient also was quite lethargic and confused initially. The emergency room physician discussed the case with nephrology at [facility] who recommended 3% sodium chloride. She was given a 50 mL bag which improved her sodium to 126. CT head was performed which was unremarkable. During my evaluation, patient was alert and oriented x3. She was unsteady in her gait. No seizure-like activity was noted. She appears neurologically stable. 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 : reports: None HEENT: reports: None Psych: reports: None, Other Musculoskeletal: reports: None Derm: reports: Other MRSA Hx?: No - Substance History Use: Uses substance without health or social issues: Alcohol Use Issues: Intoxication Abuse: Recurrent use of substance despite neg consequences: Alcohol, Opioid Abuse Issues: Intoxication Dependence Issues: Intoxication - POLST Patient has POLST: No POLST Status: Full Code Meds/Allgy - Home Medications Home Medications: Ambulatory Orders Medication Instructions Recorded Confirmed Buprenorphine HCl/Naloxone HCl 1 tab SL QPM #10 tab 03/16/23 [Suboxone 8-2 mg Tab] Cyclobenzaprine [Flexeril] 10 mg PO TID PRN #10 tab 03/16/23 Gabapentin [Neurontin] 200 mg PO QDDINNER #60 cap 03/16/23 Potassium Chloride 10 meq PO BID #10 tab 03/28/23 - Allergies Allergies/Adverse Reactions: Allergies Allergy/AdvReac Type Severity Reaction Status Date / Time oxycodone Allergy Unknown Verified 04/20/23 09:04 Penicillins Allergy Unknown Verified 04/20/23 09:04 Skittles Allergy Hives Verified 04/20/23 09:04 Review of Systems - Constitutional Constitutional: reports: Weakness. denies: Fatigue, Fever - Neurological Neurological: reports: General weakness, Dizziness, Incoordination. denies: Focal weakness, Seizures - All Other Systems All Other Systems: reports: Reviewed and negative Prior Level of Functionality: Independent Exam - Vital Signs Vital Signs: Vital Signs x48h Temp Pulse Resp BP Pulse Ox 04/20/23 15:11 82 18 116/58 L 100 04/20/23 13:03 72 17 128/74 100 04/20/23 11:18 36.4 C L 76 16 109/67 99 04/20/23 09:38 37 C 74 17 90/65 92 04/20/23 08:52 35.7 C L 77 15 109/66 92 - Physical Exam General Appearance: positive: No acute distress, Alert Eyes Bilateral: positive: PERRL, EOMI Neck: positive: Nml inspection, Thyroid nml, No JVD, Trachea midline Respiratory: positive: Chest non-tender, No respiratory distress, Breath sounds nml Cardiovascular: positive: Regular rate & rhythm, No murmur, No gallop Abdomen: positive: Non-tender, No organomegaly, Nml bowel sounds, No distention Skin: positive: Color nml, No rash, Warm, Dry Extremities: positive: Non-tender, Full ROM, Nml appearance Neurologic/Psychiatric: positive: Oriented x3, Mood/affect nml, Weakness Sepsis Event Note (H) - Evaluation Current Stage of Sepsis: Ruled out Conclusion/Plan - Problem List (1) Acute hyponatremia Conclusion/Plan: --Admitted with a sodium of 118. Exact etiology is unknown but possibly related to opioid use. --Given 50 mL of 3% saline which increased her sodium from 118 to 126. We will start her on DDAVP to keep her sodium stable to avoid overcorrection. We will also fluid restrict to 800 mL daily. Goal is to increase sodium by 6 mEq every 24 hours to avoid central pontine myelinolysis. --Checking sodium every 4 hours. --Her home medications were reviewed. Does not appear to show anything which would cause SIADH. She is on cyclobenzaprine which can cause dry mouth which may contribute to polydipsia. Patient sodium is already been treated with IV fluids therefore urine sodium would be inaccurate. -- TSH ordered. (2) Hypokalemia Conclusion/Plan: --Replacing potassium IV. Will need regular potassium checks. (3) Altered mental status Conclusion/Plan: --Encephalopathy likely due to hyponatremia. --CT head was unremarkable. --UDS negative. (4) Fentanyl use disorder, moderate Conclusion/Plan: --History of an opioid use disorder. We will continue patient on her home Suboxone while inpatient. - Lab Results Fish Bones: 04/20/23 09:23 04/20/23 14:53
[2023-04-20] MEDS ORDERED: MAGNESIUM SULFATE 2 GRAM 2 GM/50 ML BAG IV ONE (18:17)
[2023-04-20] MEDS: DESMOPRESSIN 1 MCG in SODIUM CHLORIDE 0.9% 50 ML IV SCH (18:54)
[2023-04-20] MEDS: SODIUM CHLORIDE FLUSH 0.9% 10 ML SYRINGE IVP SCH (19:00)
[2023-04-20] MEDS: ONDANSETRON ODT 4 MG TABLET TL PRN (19:44)
[2023-04-20 20:02] LABS: POTASSIUM 2.3 mmol/L (3.5-4.5)
[2023-04-20] MEDS: BUPRENORPHINE/NALOXONE 8-2 MG TAB SL SCH (21:08)
[2023-04-20] MEDS ORDERED: MINERAL OIL/PETROLAT OPHTH OINT EACHEYE PRN (21:40)
[2023-04-20] MEDS ORDERED: CARBOXYMETHYLCELLULOSE OPHTH DROPS EACHEYE PRN (21:55)
[2023-04-20] MEDS ORDERED: DEXTROSE 5% 1,000 ML IV SCH ×2 (23:00)
[2023-04-21] MEDS: DESMOPRESSIN 1 MCG in SODIUM CHLORIDE 0.9% 50 ML IV SCH ×4 (00:08→17:18)
[2023-04-21] MEDS: SODIUM CHLORIDE FLUSH 0.9% 10 ML SYRINGE IVP SCH ×3 (00:09→17:18)
[2023-04-21] MEDS: POTASSIUM CHLOR 10 MEQ/100 ML 10 MEQ/100 ML BAG IV SCH ×13 (00:11→23:41)
[2023-04-21] MEDS ORDERED: SODIUM CHLORIDE FLUSH 0.9% 10 ML SYRINGE IVP SCH (01:00)
[2023-04-21 06:05] LABS: BASOPHILS % (AUTO) 0.6 %; EOSINOPHILS # (AUTO) 0.1 10^3/uL (0.0-0.7); EOSINOPHILS % (AUTO) 1.5 %; HCT - HEMATOCRIT 30.9 % (37.0-47.0); HGB - HEMOGLOBIN 10.5 g/dL (12.0-16.0); LYMPHOCYTES # (AUTO) 0.9 10^3/uL (1.5-3.5); LYMPHOCYTES % (AUTO) 16.2 %; MEAN CORPUSCULAR HEMOGLOBIN 29.5 pg (27.0-31.0); MEAN CORPUSCULAR VOLUME 86.8 fL (81.0-99.0); MEAN PLATELET VOLUME 8.6 fL (7.9-10.8); MONOCYTES # (AUTO) 0.5 10^3/uL (0.0-1.0); MONOCYTES % (AUTO) 9.8 %; NEUTROPHILS # (AUTO) 3.8 10^3/uL (1.5-6.6); NEUTROPHILS % (AUTO) 71.5 %; PLT - PLATELET COUNT 256 10^3/uL (130-450); RED BLOOD COUNT 3.56 10^6/uL (4.20-5.40); RED CELL DISTRIBUTION WIDTH 13.8 % (12.0-15.0); WHITE BLOOD COUNT 5.3 x10^3/uL (4.8-10.8)
[2023-04-21 06:23] LABS: CALCIUM 8.3 mg/dL (8.5-10.3); MAGNESIUM 1.7 mg/dL (1.7-2.3); PHOSPHORUS 1.1 mg/dL (2.5-5.0); POTASSIUM 2.6 mmol/L (3.5-4.5)
[2023-04-21] MEDS: POTASSIUM CHLORIDE 20 MEQ TABLET PO SCH ×2 (06:41→13:57)
[2023-04-21] MEDS: BUPRENORPHINE/NALOXONE 8-2 MG TAB SL SCH ×3 (06:43→21:16)
[2023-04-21] MEDS ORDERED: MAGNESIUM SULFATE 2 GRAM 2 GM/50 ML BAG IV ONE ×2 (07:05→18:37)
[2023-04-21] MEDS ORDERED: DEXTROSE 5% IV ONE (08:00)
[2023-04-21] MEDS ORDERED: POTASSIUM PHOSPHATE IV ONE (08:00)
[2023-04-21] MEDS: ENOXAPARIN 40 MG/0.4 ML SYRINGE SUBQ SCH (09:16)
[2023-04-21] MEDS: ONDANSETRON ODT 4 MG TABLET TL PRN (09:17)
--- NOTE | 2023-04-21 09:20 | PROVIDER PROGRESS NOTE ---
Assessment/Plan - Problem List (1) Acute hyponatremia Assessment/Plan: (1) Acute hyponatremia Conclusion/Plan: --Admitted with a sodium of 118. Exact etiology is unknown but possibly related to opioid use. --She was overcorrected overnight therefore she was started on DDAVP and D5W. Will attempt to increase sodium by 6 mEQ every 24 hours. --Checking sodium every 4 hours. --Her home medications were reviewed. Does not appear to show anything which would cause SIADH. She is on cyclobenzaprine which can cause dry mouth which may contribute to polydipsia. Patient sodium is already been treated with IV fluids therefore urine sodium would be inaccurate. -- TSH ordered. (2) Hypokalemia Conclusion/Plan: --Replacing potassium IV and PO. Will need regular potassium checks. (3) Altered mental status Conclusion/Plan: --Encephalopathy likely due to hyponatremia. --CT head was unremarkable. --UDS negative. (4) Fentanyl use disorder, moderate Conclusion/Plan: --History of an opioid use disorder. We will continue patient on her home Suboxone while inpatient. --Discussed with her treatment center. Will start her on 12 mg daily and monitor. Critical care time 33 minutes. - Current Meds Current Meds: Current Medications Generic Name Dose Route Start Last Admin Trade Name Freq PRN Reason Stop Dose Admin Acetaminophen 650 mg 04/20/23 15:47 04/20/23 19:44 Acetaminophen 325 Mg Tablet PO 650 mg Q4HR PRN Administration Pain 1 to 4, or Fever Buprenorphine HCl 0.5 tab 04/20/23 22:00 04/21/23 06:43 Buprenorphine/Naloxone 8-2 Mg Tab SL 0.5 tab TID NALINI Administration Carboxymethylcellulose 1 drops 04/20/23 21:55 04/20/23 22:11 Carboxymethylcellulose Ophth Drops EACHEYE 1 drops PRN PRN Administration Dry Eye Desmopressin Acetate 1 mcg/ 50.25 mls @ 100.5 mls/hr 04/20/23 18:00 04/21/23 07:20 Sodium Chloride IV 04/21/23 18:01 Infused Q6HR NALINI Infusion Potassium Chloride 10 meq in 100 mls @ 100 mls/hr 04/21/23 08:00 04/21/23 07:44 Potassium Chloride IV 04/21/23 10:59 100 mls/hr Q1H NALINI Administration Protocol Ondansetron HCl 4 mg 04/20/23 15:47 04/20/23 19:44 Ondansetron Odt 4 Mg Tablet TL 4 mg Q6HR PRN Administration Nausea / Vomiting Potassium Chloride 40 meq 04/21/23 06:00 04/21/23 06:41 Potassium Chloride 20 Meq Tablet PO 04/22/23 14:01 40 meq TID NALINI Administration Sodium Chloride 10 ml 04/20/23 17:00 04/21/23 00:09 Sodium Chloride Flush 0.9% 10 Ml Syringe IVP 10 ml 0100,0900,1700 NALINI Administration - Lab Result Fish Bone Diagrams: 04/21/23 05:57 04/21/23 08:47 - Additional Planning My Orders: My Active Orders 04/20/23 15:47 Free Water Restriction [RC] DAILY AM Incentive Spirometry - RT [RC] TID Initiate Bowel Care Protocol [RC] .protocol Initiate Line Care Protocol [RC] QSHIFT Initiate Personal Care Protoco [RC] .protocol Oxygen Therapy [RC] .PRN Vital Signs [RC] Q1HR Acetaminophen [Tylenol] 650 mg PO Q4HR PRN Ondansetron Odt [Zofran Odt] 4 mg TL Q6HR PRN Sodium Chloride Flush 0.9% [Normal Saline Flush 0.9%] 10 ml IVP PRN PRN Code Status [OTHERS] Routine Condition of Patient [OTHERS] Routine DVT Prophylaxis [OTHERS] Routine 04/20/23 Dinner Regular Diet [DIET] 04/20/23 17:00 Sodium Chloride Flush 0.9% [Normal Saline Flush 0.9%] 10 ml IVP 0100,0900,1700 04/20/23 18:00 Desmopressin [Ddavp] 1 mcg Sodium Chloride 0.9% [Normal Saline 0.9%] 50 ml IV Q6HR 04/20/23 18:11 Tobacco Cessation [RC] .ONCE 04/20/23 18:17 Activity Orders (ICU) [RC] Q2HR Daily Weight [RC] 0600 IO [RC] Q1HR Initiate Bowel Care Protocol [RC] QSHIFT Initiate ICU Electrolyte Prot. [RC] .protocol Initiate Line Care Protocol [RC] .protocol Initiate Personal Care Protoco [RC] .protocol Initiate Progressive Mobility Protocol [RC] 799,1999 Code Status [OTHERS] Routine Condition of Patient [OTHERS] Routine 04/20/23 18:18 Telemetry- [RC] Q4HR 04/20/23 21:55 Carboxymethylcellulose 1% Opht [Refresh 1% Ophth Drops] 1 drops EACHEYE PRN PRN 04/20/23 22:00 Buprenorphine HCl/Naloxone HCl [Suboxone 8-2 mg Tab] 0.5 tab SL TID 04/21/23 06:00 Potassium Chloride [K-Dur] 40 meq PO TID 04/21/23 08:00 Potassium Chlor 10 Meq/100 ml [Potassium Chloride] 10 meq in 100 ml IV Q1H 04/21/23 09:00 Enoxaparin [Lovenox] 40 mg SUBQ DAILY 04/21/23 10:00 SODIUM PHOSPHATE 15 MMOL in NS 0.9% @ 63.75 MLS/HR(Q4H X 2) Sodium Phosphate 15 mmol Sodium Chloride 0.9% [Normal Saline 0.9%] 250 ml IV Q4H 04/21/23 11:57 SODIUM [CHEM] Q4H 04/22/23 05:00 BMP - BASIC METABOLIC PANEL [CHEM] DAILYLAB CBC [CBC - COMP BLD CT W/AUTO DIFF] [HEME] DAILYLAB MAGNESIUM [CHEM] DAILYLAB 04/23/23 05:00 BMP - BASIC METABOLIC PANEL [CHEM] DAILYLAB CBC [CBC - COMP BLD CT W/AUTO DIFF] [HEME] DAILYLAB MAGNESIUM [CHEM] DAILYLAB 04/24/23 05:00 BMP - BASIC METABOLIC PANEL [CHEM] DAILYLAB CBC [CBC - COMP BLD CT W/AUTO DIFF] [HEME] DAILYLAB MAGNESIUM [CHEM] DAILYLAB 04/25/23 05:00 BMP - BASIC METABOLIC PANEL [CHEM] DAILYLAB CBC [CBC - COMP BLD CT W/AUTO DIFF] [HEME] DAILYLAB MAGNESIUM [CHEM] DAILYLAB Subjective - Subjective Patient Reports: Feeling Better, Resting Comfortably, No Complaints Objective Vital Signs: Vital Signs - 24 hr 04/20/23 04/20/23 04/20/23 09:38 11:18 13:03 Temperature 37 C 36.4 C L Heart Rate 74 76 72 Heart Rate [ Brachial] Respiratory 17 16 17 Rate Blood Pressure 90/65 109/67 128/74 Blood Pressure [Right Brachial artery] O2 Saturation 92 99 100 04/20/23 04/20/2304/20/23 15:11 16:19 17:01 Temperature 36.8 C Heart Rate 82 83 Heart Rate [ 82 Brachial] Respiratory 18 20 16 Rate Blood Pressure 116/58 L 129/75 Blood Pressure 119/61 [Right Brachial artery] O2 Saturation 100 100 100 04/20/23 04/20/23 04/20/23 20:00 21:00 22:00 Temperature 36.7 C Heart Rate Heart Rate [ 85 86 87 Brachial] Respiratory 13 14 16 Rate Blood Pressure Blood Pressure 106/57 L 97/57 L 106/67 [Right Brachial artery] O2 Saturation 95 96 95 04/20/23 04/21/23 04/21/23 23:00 00:00 01:00 Temperature Heart Rate Heart Rate [ 86 83 80 Brachial] Respiratory 10 L 17 12 Rate Blood Pressure Blood Pressure 98/56 L 100/54 L 97/55 L [Right Brachial artery] O2 Saturation 93 93 92 04/21/23 04/21/23 04/21/23 02:00 03:00 04:00 Temperature 36.8 C Heart Rate Heart Rate [ 81 81 79 Brachial] Respiratory 11 L 18 12 Rate Blood Pressure Blood Pressure 99/57 L 100/73 92/61 [Right Brachial artery] O2 Saturation 92 95 98 04/21/23 04/21/23 04/21/23 05:00 06:00 07:00 Temperature 36.4 C L Heart Rate Heart Rate [ 70 84 73 Brachial] Respiratory 12 12 10 L Rate Blood Pressure Blood Pressure 92/54 L 122/79 105/58 L [Right Brachial artery] O2 Saturation 96 98 100 04/21/23 08:00 Temperature 37.1 C Heart Rate Heart Rate [ 80 Brachial] Respiratory 18 Rate Blood Pressure Blood Pressure 102/64 [Right Brachial artery] O2 Saturation 98 Oxygen O2 Source Room air I&O (Last 24 Hrs): Intake and Output Totals x24h 04/19/23 04/20/23 04/21/23 23:59 23:59 23:59 Intake Total 2985.25 2976.667 Output Total 400 0 Balance 2585.25 2976.667 General: Alert, Oriented x3, Cooperative, No acute distress Neuro: Alert, CN 2-12 Grossly Intact, Oriented Times 3 Cardiovascular: Regular rate, Normal S1, Normal S2, No murmurs Respiratory: Chest non-tender, No respiratory distress, Breath sounds nml Abdomen: Normal bowel sounds, Soft, No tenderness, No hepatospenomegaly, No masses - Results Results: Laboratory Results WBC 5.3 x10^3/uL (4.8-10.8) 04/21/23 05:57 RBC 3.56 10^6/uL (4.20-5.40) L 04/21/23 05:57 Hgb 10.5 g/dL (12.0-16.0) L 04/21/23 05:57 Hct 30.9 % (37.0-47.0) L 04/21/23 05:57 MCV 86.8 fL (81.0-99.0) 04/21/23 05:57 MCH 29.5 pg (27.0-31.0) 04/21/23 05:57 MCHC 34.0 g/dL (32.0-36.0) 04/21/23 05:57 RDW 13.8 % (12.0-15.0) 04/21/23 05:57 Plt Count 256 10^3/uL (130-450) 04/21/23 05:57 MPV 8.6 fL (7.9-10.8) 04/21/23 05:57 Neut # (Auto) 3.8 10^3/uL (1.5-6.6) 04/21/23 05:57 Lymph # (Auto) 0.9 10^3/uL (1.5-3.5) L 04/21/23 05:57 [place] # (Auto) 0.5 10^3/uL (0.0-1.0) 04/21/23 05:57 Eos # (Auto) 0.1 10^3/uL (0.0-0.7) 04/21/23 05:57 Baso # (Auto) 0.0 10^3/uL (0.0-0.1) 04/21/23 05:57 Absolute Nucleated RBC 0.00 x10^3/uL 04/21/23 05:57 Nucleated RBC % 0.0 /100WBC 04/21/23 05:57 VBG pH 7.452 (7.31-7.41) H 04/20/23 10:40 VBG pCO2 64.1 mmHg (41-51) H 04/20/23 10:40 VBG pO2 25.4 mmHg (25-47) 04/20/23 10:40 VBG HCO3 43.8 mmol/L (23-28) H 04/20/23 10:40 VBG Total CO2 45.7 mmol/L (24-29) H 04/20/23 10:40 VBG O2 Saturation 52.8 % (60-80) L 04/20/23 10:40 VBG Base Excess 16.5 mmol/L (-2 - +2) H 04/20/23 10:40 Sodium 125 mmol/L (135-145) L 04/21/23 08:47 Potassium 2.6 mmol/L (3.5-4.5) L 04/21/23 05:57 Chloride 85 mmol/L (101-111) L 04/21/23 05:57 Carbon Dioxide 38 mmol/L (21-32) H 04/21/23 05:57 Anion Gap 5.0 (6-13) L 04/21/23 05:57 BUN 17 mg/dL (6-20) 04/21/23 05:57 Creatinine 1.0 mg/dL (0.6-1.3) 04/21/23 05:57 Estimated GFR (MDRD) 65 (>89) L 04/21/23 05:57 Glucose 86 mg/dL (74-104) 04/21/23 05:57 Calcium 8.3 mg/dL (8.5-10.3) L 04/21/23 05:57 Phosphorus 1.1 mg/dL (2.5-5.0) L 04/21/23 05:57 Magnesium 1.7 mg/dL (1.7-2.3) 04/21/23 05:57 Total Bilirubin 0.4 mg/dL (0.2-1.0) 04/20/23 09:23 AST 18 IU/L (10-42) 04/20/23 09:23 ALT 9 IU/L (10-60) L 04/20/23 09:23 Alkaline Phosphatase 61 IU/L (42-121) 04/20/23 09:23 Total Protein 6.9 g/dL (6.4-8.9) 04/20/23 09:23 Albumin 4.3 g/dL (3.2-5.5) 04/20/23 09: Globulin 2.6 g/dL (2.1-4.2) 04/20/23 09: Albumin/Globulin Ratio 1.7 (1.0-2.2) 04/20/23 09: Lipase 68 U/L (11-82) 04/20/23 09: TSH 0.45 uIU/mL (0.34-5.60) 04/20/23 14:53 Urine Color YELLOW 04/20/23 11:43 Urine Clarity CLEAR (CLEAR) 04/20/23 11:43 Urine pH 6.0 PH (5.0-7.5) 04/20/23 11:43 Ur Specific [place] <=1.005 (1.002-1.030) 04/20/23 11:43 Urine Protein NEGATIVE mg/dL (NEGATIVE) 04/20/23 11:43 Urine Glucose (UA) NEGATIVE mg/dL (NEGATIVE) 04/20/23 11:43 Urine Ketones NEGATIVE mg/dL (NEGATIVE) 04/20/23 11:43 Urine Occult Blood NEGATIVE (NEGATIVE) 04/20/23 11:43 Urine Nitrite NEGATIVE (NEGATIVE) 04/20/23 11:43 Urine Bilirubin NEGATIVE (NEGATIVE) 04/20/23 11:43 Urine Urobilinogen 0.2 (NORMAL) E.U./dL (NORMAL) 04/20/23 11:43 Ur Leukocyte Esterase NEGATIVE (NEGATIVE) 04/20/23 11:43 Ur Microscopic Review NOT INDICATED 04/20/23 11:43 Urine Culture Comments NOT INDICATED 04/20/23 11:43 Urine HCG, Qual NEGATIVE 04/20/23 11:43 Nasal Adenovirus (PCR) NOT DETECTED 04/20/23 09:54 Nasal B. parapertussis DNA (PCR) NOT DETECTED 04/20/23 09:54 Nasal Coronavir 229E PCR NOT DETECTED 04/20/23 09:54 Nasal Coronavir HKU1 PCR NOT DETECTED 04/20/23 09:54 Nasal Coronavir NL63 PCR NOT DETECTED 04/20/23 09:54 Nasal Coronavir OC43 PCR NOT DETECTED 04/20/23 09:54 Nasal Enterovir/Rhinovir PCR NOT DETECTED 04/20/23 09:54 Nasal Influenza B PCR NOT DETECTED 04/20/23 09:54 Nasal Influenza A PCR NOT DETECTED 04/20/23 09:54 Nasal Parainfluen 1 PCR NOT DETECTED 04/20/23 09:54 Nasal Parainfluen 2 PCR NOT DETECTED 04/20/23 09:54 Nasal Parainfluen 3 PCR NOT DETECTED 04/20/23 09:54 Nasal Parainfluen 4 PCR NOT DETECTED 04/20/23 09:54 Nasal RSV (PCR) NOT DETECTED 04/20/23 09:54 Nasal Screen MRSA (PCR) NEGATIVE (NEGATIVE) 04/20/23 23:15 Nasal B.pertussis DNA PCR NOT DETECTED 04/20/23 09:54 Nasal C.pneumoniae (PCR) NOT DETECTED 04/20/23 09:54 Oziel Human Metapneumo PCR NOT DETECTED 04/20/23 09:54 Nasal M.pneumoniae (PCR) NOT DETECTED 04/20/23 09:54 Nasal SARS-CoV-2 (PCR) NOT DETECTED 04/20/23 09:54 Salicylates < 1.5 mg/dL 04/20/23 09:23 Urine Opiates Screen NEGATIVE (NEGATIVE) 04/20/23 11:43 Ur Oxycodone Screen NEGATIVE (NEGATIVE) 04/20/23 11:43 Urine Methadone Screen NEGATIVE (NEGATIVE) 04/20/23 11:43 Ur Propoxyphene Screen NEGATIVE (NEGATIVE) 04/20/23 11:43 Acetaminophen 0.2 ug/mL 04/20/23 09:23 Ur Barbiturates Screen NEGATIVE (NEGATIVE) 04/20/23 11:43 Ur Tricyclics Screen NEGATIVE (NEGATIVE) 04/20/23 11:43 Ur Phencyclidine Scrn NEGATIVE (NEGATIVE) 04/20/23 11:43 Ur Amphetamine Screen NEGATIVE (NEGATIVE) 04/20/23 11:43 U Methamphetamines Scrn NEGATIVE (NEGATIVE) 04/20/23 11:43 U Benzodiazepines Scrn NEGATIVE (NEGATIVE) 04/20/23 11:43 Urine Cocaine Screen NEGATIVE (NEGATIVE) 04/20/23 11:43 U Cannabinoids Screen NEGATIVE (NEGATIVE) 04/20/23 11:43 Ethyl Alcohol < 10.0 mg/dL 04/20/23 09:23 Sepsis Event Note (H) - Evaluation Current Stage of Sepsis: Ruled out Current Medications - Current Medications Current Medications: Active Medications Generic Name Dose Route Start Last Admin Trade Name Freq PRN Reason Stop Dose Admin Acetaminophen 650 mg 04/20/23 15:47 04/20/23 19:44 Acetaminophen 325 Mg Tablet PO 650 mg Q4HR PRN Administration Pain 1 to 4, or Fever Buprenorphine HCl 0.5 tab 04/20/23 22:00 04/21/23 06:43 Buprenorphine/Naloxone 8-2 Mg Tab SL 0.5 tab TID NALINI Administration Carboxymethylcellulose 1 drops 04/20/23 21:55 04/20/23 22:11 Carboxymethylcellulose Ophth Drops EACHEYE 1 drops PRN PRN Administration Dry Eye Enoxaparin Sodium 40 mg 04/21/23 09:00 04/21/23 09:16 Enoxaparin 40 Mg/0.4 Ml Syringe SUBQ 40 mg DAILY NALINI Administration Desmopressin Acetate 1 mcg/ 50.25 mls @ 100.5 mls/hr 04/20/23 18:00 04/21/23 07:20 Sodium Chloride IV 04/21/23 18:01 Infused Q6HR NALINI Infusion Potassium Chloride 10 meq in 100 mls @ 100 mls/hr 04/21/23 08:00 04/21/23 09:16 Potassium Chloride IV 04/21/23 10:59 100 mls/hr Q1H NALINI Administration Protocol Sodium Phosphate 15 mmol/ 255 mls @ 63.75 mls/hr 04/21/23 10:00 Sodium Chloride IV 04/21/23 17:59 Q4H NALINI Ondansetron HCl 4 mg 04/20/23 15:47 04/21/23 09:17 Ondansetron Odt 4 Mg Tablet TL 4 mg Q6HR PRN Administration Nausea / Vomiting Potassium Chloride 40 meq 04/21/23 06:00 04/21/23 06:41 Potassium Chloride 20 Meq Tablet PO 04/22/23 14:01 40 meq TID NALINI Administration Sodium Chloride 10 ml 04/20/23 15:47 Sodium Chloride Flush 0.9% 10 Ml Syringe IVP PRN PRN NEEDED PER PROVIDER ORDERS Sodium Chloride 10 ml 04/20/23 17:00 04/21/23 09:18 Sodium Chloride Flush 0.9% 10 Ml Syringe IVP 10 ml 0100,0900,1700 NALINI Administration
[2023-04-21] MEDS: SODIUM PHOSPHATE 15 MMOL in SODIUM CHLORIDE 0.9% 250 ML IV SCH ×2 (10:18→14:00)
[2023-04-21] MEDS: NICOTINE 14 MG PATCH TOP SCH (10:22)
[2023-04-21] MEDS: NS W/20 MEQ KCL 1,000 ML IV SCH (12:24)
--- NOTE | 2023-04-21 12:39 | PHARMACY PROGRESS NOTE ---
- Best Possible Medication History Admit Date and Time: 04/20/23 1547 Processed by: Pharmacy Secondary Source(s): Facility MAR as ONLY source As the person ultimately responsible for medication therapy, providers are able to order a medication from an existing home medication list in [facility] via the "Reconcile Routine" prior to Confirmation of that medication by clinical support nurse. Such practice is discouraged except when the physician, in their clinical judgment, deems that a medical need exists for a medication without regard to previous use.
[2023-04-21] MEDS ORDERED: ONDANSETRON 4 MG/2 ML VIAL IVP PRN (15:13)
[2023-04-21] MEDS ORDERED: LOPERAMIDE 2 MG CAPSULE PO PRN (18:07)
[2023-04-21 18:23] LABS: CALCIUM, IONIZED 0.94 mmol/L (1.15-1.33); VBG PH 7.51 (7.31-7.41)
[2023-04-21] MEDS ORDERED: CALCIUM GLUCONATE IN NS 0.9% 2,000 MG/100 ML BAG IV ONE (18:30)
[2023-04-21 18:35] LABS: MAGNESIUM 1.7 mg/dL (1.7-2.3); PHOSPHORUS 2.4 mg/dL (2.5-5.0); POTASSIUM 2.7 mmol/L (3.5-4.5)
[2023-04-21] MEDS ORDERED: SODIUM PHOSPHATE 15 MMOL in SODIUM CHLORIDE 0.9% 250 ML IV ONE (18:42)
[2023-04-21] MEDS: NEUTRA-PHOS 250 MG TABLET PO SCH ×2 (18:56→20:10)
[2023-04-21] MEDS: POTASSIUM CHLORIDE 10 MEQ CAPSULE PO SCH (20:10)
[2023-04-21] MEDS: PROCHLORPERAZINE 10 MG/2 ML VIAL IVP PRN (23:03)
[2023-04-22] MEDS ORDERED: diphenhydrAMINE INJ 50 MG/ML VIAL IVP PRN (01:01)
[2023-04-22] MEDS: POTASSIUM CHLOR 10 MEQ/100 ML 10 MEQ/100 ML BAG IV SCH ×7 (01:04→16:25)
[2023-04-22] MEDS: NS W/20 MEQ KCL 1,000 ML IV SCH ×2 (01:17→12:01)
[2023-04-22] MEDS: SODIUM CHLORIDE FLUSH 0.9% 10 ML SYRINGE IVP SCH ×3 (01:17→17:26)
[2023-04-22] MEDS: BUPRENORPHINE/NALOXONE 8-2 MG TAB SL SCH ×3 (07:56→20:58)
[2023-04-22 09:17] LABS: BASOPHILS % (AUTO) 0.4 %; EOSINOPHILS # (AUTO) 0.1 10^3/uL (0.0-0.7); EOSINOPHILS % (AUTO) 1.5 %; HCT - HEMATOCRIT 33.6 % (37.0-47.0); HGB - HEMOGLOBIN 11.4 g/dL (12.0-16.0); LYMPHOCYTES # (AUTO) 0.9 10^3/uL (1.5-3.5); LYMPHOCYTES % (AUTO) 13.3 %; MEAN CORPUSCULAR HEMOGLOBIN 29.2 pg (27.0-31.0); MEAN CORPUSCULAR HGB CONC 33.9 g/dL (32.0-36.0); MEAN CORPUSCULAR VOLUME 86.2 fL (81.0-99.0); MEAN PLATELET VOLUME 9.9 fL (7.9-10.8); MONOCYTES # (AUTO) 0.5 10^3/uL (0.0-1.0); MONOCYTES % (AUTO) 7.7 %; NEUTROPHILS # (AUTO) 5.2 10^3/uL (1.5-6.6); PLT - PLATELET COUNT 257 10^3/uL (130-450); RED CELL DISTRIBUTION WIDTH 14.2 % (12.0-15.0); WHITE BLOOD COUNT 6.7 x10^3/uL (4.8-10.8)
[2023-04-22] MEDS ORDERED: OLANZapine 10 MG VIAL IM ONE (09:23)
[2023-04-22 09:43] LABS: VBG PH 7.449 (7.31-7.41)
[2023-04-22 09:44] LABS: CALCIUM, IONIZED 1.03 mmol/L (1.15-1.33)
[2023-04-22] MEDS: NICOTINE 14 MG PATCH TOP SCH (10:01)
[2023-04-22] MEDS: ENOXAPARIN 40 MG/0.4 ML SYRINGE SUBQ SCH (10:01)
[2023-04-22] MEDS: POTASSIUM CHLORIDE 10 MEQ CAPSULE PO SCH ×3 (10:02→20:42)
[2023-04-22 10:39] LABS: CALCIUM 8.9 mg/dL (8.5-10.3); CREATININE 0.9 mg/dL (0.6-1.3); MAGNESIUM 1.3 mg/dL (1.7-2.3); POTASSIUM 2.9 mmol/L (3.5-4.5)
[2023-04-22] MEDS ORDERED: CALCIUM GLUC 1,000MG/50ML-NACL 1,000 MG/50 ML BAG IV ONE ×2 (10:50→17:00)
[2023-04-22] MEDS: MAGNESIUM SULFATE 2 GRAM 2 GM/50 ML BAG IV SCH ×2 (11:00→12:00)
[2023-04-22] MEDS ORDERED: POTASSIUM PHOSPHATE 21 MMOL in SODIUM CHLORIDE 0.9% 250 ML IV ONE (13:00)
[2023-04-22] MEDS: LORazepam 2 MG/ML VIAL IVP PRN ×3 (13:06→20:43)
[2023-04-22 13:22] LABS: ALBUMIN 4.1 g/dL (3.2-5.5); ALBUMIN/GLOBULIN RATIO 1.8 (1.0-2.2); BILIRUBIN,TOTAL 0.4 mg/dL (0.2-1.0); CREATININE 0.8 mg/dL (0.6-1.3); POTASSIUM 3.6 mmol/L (3.5-4.5); TOTAL PROTEIN 6.4 g/dL (6.4-8.9)
[2023-04-22 13:52] LABS: THYROID STIMULATING HORMONE 1.75 uIU/mL (0.34-5.60)
[2023-04-22] MEDS ORDERED: THIAMINE INJ 100 MG, FOLIC ACID INJ 1 MG in SODIUM CHLORIDE 0.9% 1,000 ML IV SCH (14:00)
[2023-04-22 16:11] LABS: BILIRUBIN,URINE NEGATIVE (NEGATIVE); CLARITY,URINE CLEAR (CLEAR); GLUCOSE, URINE (UA) NEGATIVE (NEGATIVE); KETONES,URINE (UA) NEGATIVE (NEGATIVE); LEUKOCYTE ESTERASE, URINE NEGATIVE (NEGATIVE); NITRITE,URINE NEGATIVE (NEGATIVE); OCCULT BLOOD,URINE NEGATIVE (NEGATIVE); PROTEIN,URINE NEGATIVE (NEGATIVE); UROBILINOGEN,URINE 0.2 (NORMAL) E.U./dL (NORMAL)
[2023-04-22 16:21] LABS: VBG PH 7.568 (7.31-7.41)
--- NOTE | 2023-04-22 16:41 | PROVIDER PROGRESS NOTE ---
Assessment/Plan - Problem List (1) Acute hyponatremia Assessment/Plan: (1) Acute hyponatremia Conclusion/Plan: --Improving. Currently on normal saline at 100 ml/hr. Goal increase is 6 points per 24 hour period. (2) Hypokalemia Conclusion/Plan: --Replacing potassium IV and PO. Will need regular potassium checks. (3) Altered mental status Conclusion/Plan: --Patient was reportedly aphasic and anxious overnight. She was extremely withdrawn and became aphasic for hours at a time. This morning during my evaluation patient remained aphasic. She also had episodes of jerking in her up per extremities. She did not speak to me nor did she follow directions. She was initially given the milligrams of Zyprexa without any effect. This was followed by 2 mg of Ativan which resolved her of all symptoms. She was not able to recall the events of this morning however she was able to tell me that she did not sleep last night. Labs are currently pending. Exact etiology of her symptoms are unknown. She could have underlying seizure disorder precipitated by her metabolic derangements. Her UDS was negative. CT head is pending. We will also have a telepsych evaluation. (4) Fentanyl use disorder, moderate Conclusion/Plan: --History of an opioid use disorder. We will continue patient on her home Suboxone while inpatient. --Discussed with her treatment center. Will start her on 12 mg daily and monitor. - Current Meds Current Meds: Current Medications Generic Name Dose Route Start Last Admin Trade Name Ducq PRN Reason Stop Dose Admin Acetaminophen 650 mg 04/20/23 15:47 04/20/23 19:44 Acetaminophen 325 Mg Tablet PO 650 mg Q4HR PRN Administration Pain 1 to 4, or Fever Buprenorphine HCl 0.5 tab 04/20/23 22:00 04/22/23 14:26 Buprenorphine/Naloxone 8-2 Mg Tab SL 0.5 tab TID NALINI Administration Carboxymethylcellulose 1 drops 04/20/23 21:55 04/20/23 22:11 Carboxymethylcellulose Ophth Drops EACHEYE 1 drops PRN PRN Administration Dry Eye Diphenhydramine HCl 25 mg 04/22/23 01:01 04/22/23 01:17 Diphenhydramine Inj 50 Mg/Ml Vial IVP 04/23/23 01:00 25 mg ONCE PRN Administration Insomnia Enoxaparin Sodium 40 mg 04/21/23 09:00 04/22/23 10:01 Enoxaparin 40 Mg/0.4 Ml Syringe SUBQ 40 mg DAILY NALINI Administration Potassium Chloride/Sodium Chloride 1,000 mls @ 83.333 mls/hr 04/21/23 12:00 04/22/23 12:01 Normal Saline 0.9% W/20 Meq Kcl IV 83.333 mls/hr .Q12H NALINI Administration Potassium Chloride 10 meq in 100 mls @ 100 mls/hr 04/22/23 11:00 04/22/23 14:26 Potassium Chloride IV 04/22/23 16:59 100 mls/hr Q1H NALINI Administration Protocol Potassium Phosphate 21 mmol/ 257 mls @ 64 mls/hr 04/22/23 13:00 04/22/23 13:02 Sodium Chloride IV 04/22/23 17:00 64 mls/hr ONCE ONE Administration Protocol Thiamine HCl 100 mg/ Folic 1,001.2 mls @ 100 mls/hr 04/22/23 14:00 04/22/23 14:28 Acid 1 mg/ Sodium Chloride IV 100 mls/hr Q24H NALINI Administration Loperamide HCl 2 mg 04/21/23 18:07 04/21/23 18:36 Loperamide 2 Mg Capsule PO 2 mg QID PRN Administration Diarrhea Lorazepam 2 mg 04/22/23 12:34 04/22/23 13:06 Lorazepam 2 Mg/Ml Vial IVP 2 mg Q4H PRN Administration Anxiety Nicotine 1 patch 04/21/23 10:00 04/22/23 10:01 Nicotine 14 Mg Patch TOP 1 patch DAILY NALINI Administration Ondansetron HCl 4 mg 04/20/23 15:47 04/21/23 09:17 Ondansetron Odt 4 Mg Tablet TL 4 mg Q6HR PRN Administration Nausea / Vomiting Ondansetron HCl 4 mg 04/21/23 15:13 04/21/23 15:25 Ondansetron 4 Mg/2 Ml Vial IVP 4 mg Q6HR PRN Administration Nausea / Vomiting Potassium Chloride 20 meq 04/21/23 21:00 04/22/23 10:16 Potassium Chloride 10 Meq Capsule PO Not Given BID NALINI Prochlorperazine Edisylate 10 mg 04/21/23 21:18 04/21/23 23:03 Prochlorperazine 10 Mg/2 Ml Vial IVP 10 mg Q6HR PRN Administration Nausea / Vomiting Sodium Chloride 10 ml 04/20/23 17:00 04/22/23 10:02 Sodium Chloride Flush 0.9% 10 Ml Syringe IVP 10 ml 0100,0900,1700 NALINI Administration - Lab Result Fish Bone Diagrams: 04/22/23 09:00 04/22/23 12:04 - Additional Planning My Orders: My Active Orders 04/21/23 18:07 Loperamide [Imodium] 2 mg PO QID PRN 04/21/23 21:00 Potassium Chloride [Micro-K] 20 meq PO BID 04/22/23 Tele Psych [Phone Psych Consult] [CONS] Routine 04/22/23 11:00 Potassium Chlor 10 Meq/100 ml [Potassium Chloride] 10 meq in 100 ml IV Q1H 04/22/23 12:34 LORazepam INJ [Ativan Inj (Vial)] 2 mg IVP Q4H PRN 04/22/23 13:00 Potassium Phosphate 21 mmol Sodium Chloride 0.9% [Normal Saline 0.9%] 250 ml IV ONCE 04/22/23 14:00 Thiamine Inj [Vitamin B-1 Inj] 100 mg Folic Acid Inj [Folic Acid] 1 mg Sodium Chloride 0.9% [Normal Saline 0.9%] 1,000 ml IV Q24H 04/22/23 16:00 CALCIUM, IONIZED ([facility]) [BG] Timed MAGNESIUM [CHEM] Timed 04/22/23 21:00 QUEtiapine [SEROquel] 25 mg PO QPM 04/23/23 05:00 BMP - BASIC METABOLIC PANEL [CHEM] DAILYLAB CBC [CBC - COMP BLD CT W/AUTO DIFF] [HEME] DAILYLAB CBC [CBC - COMP BLD CT W/AUTO DIFF] [HEME] ONCE MAGNESIUM [CHEM] DAILYLAB 04/24/23 05:00 BMP - BASIC METABOLIC PANEL [CHEM] DAILYLAB CBC [CBC - COMP BLD CT W/AUTO DIFF] [HEME] DAILYLAB MAGNESIUM [CHEM] DAILYLAB 04/25/23 05:00 BMP - BASIC METABOLIC PANEL [CHEM] DAILYLAB CBC [CBC - COMP BLD CT W/AUTO DIFF] [HEME] DAILYLAB MAGNESIUM [CHEM] DAILYLAB Subjective - Subjective Patient Reports: Other (Aphasic this morning. Evaluated multiple times and she did not speak. She returned to baseline after being given 2 mg if IV ativan.) Nursing Reports: Other Objective Vital Signs: Vital Signs - 24 hr 04/21/23 04/21/23 04/21/23 17:00 18:00 19:00 Temperature 37.1 C Heart Rate [ 76 75 73 Brachial] Respiratory 16 20 16 Rate Blood Pressure 122/85 H 110/78 115/73 [Right Brachial artery] O2 Saturation 98 99 100 04/21/23 04/21/23 04/21/23 20:00 21:00 22:00 Temperature 37.3 C Heart Rate [ 79 82 88 Brachial] Respiratory 13 11 L 24 Rate Blood Pressure 126/87 H 129/92 H 128/94 H [Right Brachial artery] O2 Saturation 94 97 97 04/21/23 04/22/23 04/22/23 23:00 00:00 01:00 Temperature Heart Rate [ 73 71 80 Brachial] Respiratory 12 16 12 Rate Blood Pressure 131/89 H 108/64 129/93 H [Right Brachial artery] O2 Saturation 97 93 96 04/22/23 04/22/23 04/22/23 02:00 03:00 04:00 Temperature 36.9 C 36.8 C Heart Rate [ 65 63 68 Brachial] Respiratory 12 10 L 10 L Rate Blood Pressure 116/85 H 105/71 117/84 H [Right Brachial artery] O2 Saturation 97 96 95 04/22/23 04/22/23 04/22/23 05:00 07:00 08:00 Temperature 36.8 C Heart Rate [ 72 85 95 Brachial] Respiratory 10 L 15 14 Rate Blood Pressure 126/92 H 133/101 H 166/106 H [Right Brachial artery] O2 Saturation 95 96 100 04/22/23 04/22/23 04/22/23 09:00 10:00 11:00 Temperature Heart Rate [ 117 H 97 88 Brachial] Respiratory 24 23 18 Rate Blood Pressure 111/90 H 125/88 H 122/87 H [Right Brachial artery] O2 Saturation 100 99 04/22/23 04/22/23 04/22/23 12:00 13:00 14:00 Temperature 36.8 C Heart Rate [ 90 94 111 H Brachial] Respiratory 14 16 15 Rate Blood Pressure 150/99 H 112/74 128/93 H [Right Brachial artery] O2 Saturation 99 100 99 04/22/23 15:00 Temperature 36.8 C Heart Rate [ 104 H Brachial] Respiratory 14 Rate Blood Pressure 125/93 H [Right Brachial artery] O2 Saturation Oxygen O2 Source Room air I&O (Last 24 Hrs): Intake and Output Totals x24h 04/20/23 04/21/23 04/22/23 23:59 23:59 23:59 Intake Total 2985.25 6396.042 3464.441 Output Total 400 1550 0 Balance 2585.25 4846.042 3464.441 General: Alert, Oriented x3, Cooperative, No acute distress HEENT: Atraumatic, PERRLA, EOMI Neuro: Alert, CN 2-12 Grossly Intact, Oriented Times 3 Cardiovascular: Regular rate, Normal S1, Normal S2, No murmurs Respiratory: Chest non-tender, No respiratory distress, Breath sounds nml Abdomen: Normal bowel sounds, Soft, No tenderness, No hepatospenomegaly, No masses - Results Results: Laboratory Results WBC 6.7 x10^3/uL (4.8-10.8) 04/22/23 09:00 RBC 3.90 10^6/uL (4.20-5.40) L 04/22/23 09:00 Hgb 11.4 g/dL (12.0-16.0) L 04/22/23 09:00 Hct 33.6 % (37.0-47.0) L 04/22/23 09:00 MCV 86.2 fL (81.0-99.0) 04/22/23 09:00 MCH 29.2 pg (27.0-31.0) 04/22/23 09:00 MCHC 33.9 g/dL (32.0-36.0) 04/22/23 09:00 RDW 14.2 % (12.0-15.0) 04/22/23 09:00 Plt Count 257 10^3/uL (130-450) 04/22/23 09:00 MPV 9.9 fL (7.9-10.8) 04/22/23 09:00 Neut # (Auto) 5.2 10^3/uL (1.5-6.6) 04/22/23 09:00 Lymph # (Auto) 0.9 10^3/uL (1.5-3.5) L 04/22/23 09:00 [place] # (Auto) 0.5 10^3/uL (0.0-1.0) 04/22/23 09:00 Eos # (Auto) 0.1 10^3/uL (0.0-0.7) 04/22/23 09:00 Baso # (Auto) 0.0 10^3/uL (0.0-0.1) 04/22/23 09:00 Absolute Nucleated RBC 0.00 x10^3/uL 04/22/23 09:00 Nucleated RBC % 0.0 /100WBC 04/22/23 09:00 VBG pH 7.449 (7.31-7.41) H 04/22/23 09:00 VBG pCO2 64.1 mmHg (41-51) H 04/20/23 10:40 VBG pO2 25.4 mmHg (25-47) 04/20/23 10:40 VBG HCO3 43.8 mmol/L (23-28) H 04/20/23 10:40 VBG Total CO2 45.7 mmol/L (24-29) H 04/20/23 10:40 VBG O2 Saturation 52.8 % (60-80) L 04/20/23 10:40 VBG Base Excess 16.5 mmol/L (-2 - +2) H 04/20/23 10:40 Ionized Calcium 1.03 mmol/L (1.15-1.33) L 04/22/23 09:00 Sodium 127 mmol/L (135-145) L 04/22/23 12:04 Sodium 127 mmol/L (135-145) L 04/22/23 12:04 Potassium 3.6 mmol/L (3.5-4.5) 04/22/23 12:04 Chloride 89 mmol/L (101-111) L 04/22/23 12:04 Carbon Dioxide 27 mmol/L (21-32) 04/22/23 12:04 Anion Gap 11.0 (6-13) 04/22/23 12:04 BUN 4 mg/dL (6-20) L 04/22/23 12:04 Creatinine 0.8 mg/dL (0.6-1.3) 04/22/23 12:04 Estimated GFR (MDRD) 84 (>89) L 04/22/23 12:04 Glucose 92 mg/dL (74-104) 04/22/23 12:04 Calcium 10.0 mg/dL (8.5-10.3) 04/22/23 12:04 Phosphorus 1.4 mg/dL (2.5-5.0) L 04/22/23 10:15 Magnesium 1.3 mg/dL (1.7-2.3) L 04/22/23 10:15 Total Bilirubin 0.4 mg/dL (0.2-1.0) 04/22/23 12:04 AST 21 IU/L (10-42) 04/22/23 12:04 ALT 10 IU/L (10-60) 04/22/23 12:04 Alkaline Phosphatase 51 IU/L (42-121) 04/22/23 12:04 Ammonia 32.3 umol/L (18-72) 04/22/23 13:25 Total Protein 6.4 g/dL (6.4-8.9) 04/22/23 12:04 Albumin 4.1 g/dL (3.2-5.5) 04/22/23 12:04 Globulin 2.3 g/dL (2.1-4.2) 04/22/23 12:04 Albumin/Globulin Ratio 1.8 (1.0-2.2) 04/22/23 12:04 Lipase 68 U/L (11-82) 04/20/23 09:23 Vitamin B12 720 pg/mL (180-914) 04/22/23 12:04 Folate 12.0 ng/mL (5.90 - >24.8) 04/22/23 12:04 TSH 1.75 uIU/mL (0.34-5.60) 04/22/23 12:04 Urine Color YELLOW 04/22/23 15:00 Urine Clarity CLEAR (CLEAR) 04/22/23 15:00 Urine pH 7.0 PH (5.0-7.5) 04/22/23 15:00 Ur Specific Marana 1.010 (1.002-1.030) 04/22/23 15:00 Urine Protein NEGATIVE mg/dL (NEGATIVE) 04/22/23 15:00 Urine Glucose (UA) NEGATIVE mg/dL (NEGATIVE) 04/22/23 15:00 Urine Ketones NEGATIVE mg/dL (NEGATIVE) 04/22/23 15:00 Urine Occult Blood NEGATIVE (NEGATIVE) 04/22/23 15:00 Urine Nitrite NEGATIVE (NEGATIVE) 04/22/23 15:00 Urine Bilirubin NEGATIVE (NEGATIVE) 04/22/23 15:00 Urine Urobilinogen 0.2 (NORMAL) E.U./dL (NORMAL) 04/22/23 15:00 Ur Leukocyte Esterase NEGATIVE (NEGATIVE) 04/22/23 15:00 Ur Microscopic Review NOT INDICATED 04/22/23 15:00 Urine Culture Comments NOT INDICATED 04/22/23 15:00 Urine HCG, Qual NEGATIVE 04/20/23 11:43 Nasal Adenovirus (PCR) NOT DETECTED 04/20/23 09:54 Nasal B. parapertussis DNA (PCR) NOT DETECTED 04/20/23 09:54 Nasal Coronavir 229E PCR NOT DETECTED 04/20/23 09:54 Nasal Coronavir HKU1 PCR NOT DETECTED 04/20/23 09:54 Nasal Coronavir NL63 PCR NOT DETECTED 04/20/23 09:54 Nasal Coronavir OC43 PCR NOT DETECTED 04/20/23 09:54 Nasal Enterovir/Rhinovir PCR NOT DETECTED 04/20/23 09:54 Nasal Influenza B PCR NOT DETECTED 04/20/23 09:54 Nasal Influenza A PCR NOT DETECTED 04/20/23 09:54 Nasal Parainfluen 1 PCR NOT DETECTED 04/20/23 09:54 Nasal Parainfluen 2 PCR NOT DETECTED 04/20/23 09:54 Nasal Parainfluen 3 PCR NOT DETECTED 04/20/23 09:54 Nasal Parainfluen 4 PCR NOT DETECTED 04/20/23 09:54 Nasal RSV (PCR) NOT DETECTED 04/20/23 09:54 Nasal Screen MRSA (PCR) NEGATIVE (NEGATIVE) 04/20/23 23:15 Nasal B.pertussis DNA PCR NOT DETECTED 04/20/23 09:54 Nasal C.pneumoniae (PCR) NOT DETECTED 04/20/23 09:54 Oziel Human Metapneumo PCR NOT DETECTED 04/20/23 09:54 Nasal M.pneumoniae (PCR) NOT DETECTED 04/20/23 09:54 Nasal SARS-CoV-2 (PCR) NOT DETECTED 04/20/23 09:54 Salicylates < 1.5 mg/dL 04/20/23 09:23 Urine Opiates Screen NEGATIVE (NEGATIVE) 04/20/23 11:43 Ur Oxycodone Screen NEGATIVE (NEGATIVE) 04/20/23 11:43 Urine Methadone Screen NEGATIVE (NEGATIVE) 04/20/23 11:43 Ur Propoxyphene Screen NEGATIVE (NEGATIVE) 04/20/23 11:43 Acetaminophen 0.2 ug/mL 04/20/23 09:23 Ur Barbiturates Screen NEGATIVE (NEGATIVE) 04/20/23 11:43 Ur Tricyclics Screen NEGATIVE (NEGATIVE) 04/20/23 11:43 Ur Phencyclidine Scrn NEGATIVE (NEGATIVE) 04/20/23 11:43 Ur Amphetamine Screen NEGATIVE (NEGATIVE) 04/20/23 11:43 U Methamphetamines Scrn NEGATIVE (NEGATIVE) 04/20/23 11:43 U Benzodiazepines Scrn NEGATIVE (NEGATIVE) 04/20/23 11:43 Urine Cocaine Screen NEGATIVE (NEGATIVE) 04/20/23 11:43 U Cannabinoids Screen NEGATIVE (NEGATIVE) 04/20/23 11:43 Ethyl Alcohol < 10.0 mg/dL 04/20/23 09:23 Sepsis Event Note (H) - Evaluation Current Stage of Sepsis: Ruled out Current Medications - Current Medications Current Medications: Active Medications Generic Name Dose Route Start Last Admin Trade Name Freq PRN Reason Stop Dose Admin Acetaminophen 650 mg 04/20/23 15:47 04/20/23 19:44 Acetaminophen 325 Mg Tablet PO 650 mg Q4HR PRN Administration Pain 1 to 4, or Fever Buprenorphine HCl 0.5 tab 04/20/23 22:00 04/22/23 14:26 Buprenorphine/Naloxone 8-2 Mg Tab SL 0.5 tab TID NALINI Administration Carboxymethylcellulose 1 drops 04/20/23 21:55 04/20/23 22:11 Carboxymethylcellulose Ophth Drops EACHEYE 1 drops PRN PRN Administration Dry Eye Diphenhydramine HCl 25 mg 04/22/23 01:01 04/22/23 01:17 Diphenhydramine Inj 50 Mg/Ml Vial IVP 04/23/23 01:00 25 mg ONCE PRN Administration Insomnia Enoxaparin Sodium 40 mg 04/21/23 09:00 04/22/23 10:01 Enoxaparin 40 Mg/0.4 Ml Syringe SUBQ 40 mg DAILY NALINI Administration Potassium Chloride/Sodium Chloride 1,000 mls @ 83.333 mls/hr 04/21/23 12:00 04/22/23 12:01 Normal Saline 0.9% W/20 Meq Kcl IV 83.333 mls/hr .Q12H NALINI Administration Potassium Chloride 10 meq in 100 mls @ 100 mls/hr 04/22/23 11:00 04/22/23 16:25 Potassium Chloride IV 04/22/23 16:59 100 mls/hr Q1H NALINI Administration Protocol Potassium Phosphate 21 mmol/ 257 mls @ 64 mls/hr 04/22/23 13:00 04/22/23 13:02 Sodium Chloride IV 04/22/23 17:00 64 mls/hr ONCE ONE Administration Protocol Thiamine HCl 100 mg/ Folic 1,001.2 mls @ 100 mls/hr 04/22/23 14:00 04/22/23 14:28 Acid 1 mg/ Sodium Chloride IV 100 mls/hr Q24H NALINI Administration CALCIUM GLUC 1,000MG/50ML-NACL 1,000 mg in 50 mls @ 50 mls/hr 04/22/23 17:00 Calcium Gluc 1,000mg/50ml-Nacl IV 04/22/23 17:59 ONCE ONE Protocol Loperamide HCl 2 mg 04/21/23 18:07 04/21/23 18:36 Loperamide 2 Mg Capsule PO 2 mg QID PRN Administration Diarrhea Lorazepam 2 mg 04/22/23 12:34 04/22/23 13:06 Lorazepam 2 Mg/Ml Vial IVP 2 mg Q4H PRN Administration Anxiety Nicotine 1 patch 04/21/23 10:00 04/22/23 10:01 Nicotine 14 Mg Patch TOP 1 patch DAILY NALINI Administration Ondansetron HCl 4 mg 04/20/23 15:47 04/21/23 09:17 Ondansetron Odt 4 Mg Tablet TL 4 mg Q6HR PRN Administration Nausea / Vomiting Ondansetron HCl 4 mg 04/21/23 15:13 04/21/23 15:25 Ondansetron 4 Mg/2 Ml Vial IVP 4 mg Q6HR PRN Administration Nausea / Vomiting Potassium Chloride 20 meq 04/21/23 21:00 04/22/23 10:16 Potassium Chloride 10 Meq Capsule PO Not Given BID NALINI Prochlorperazine Edisylate 10 mg 04/21/23 21:18 04/21/23 23:03 Prochlorperazine 10 Mg/2 Ml Vial IVP 10 mg Q6HR PRN Administration Nausea / Vomiting Quetiapine Fumarate 25 mg 04/22/23 21:00 Quetiapine 25 Mg Tablet PO QPM NALINI Sodium Chloride 10 ml 04/20/23 15:47 Sodium Chloride Flush 0.9% 10 Ml Syringe IVP PRN PRN NEEDED PER PROVIDER ORDERS Sodium Chloride 10 ml 04/20/23 17:00 04/22/23 10:02 Sodium Chloride Flush 0.9% 10 Ml Syringe IVP 10 ml 0100,0900,1700 NALINI Administration Acetaminophen [Tylenol] 1,000 mg PO Q6H PRN 04/21/23 Buprenorphine HCl/Naloxone HCl [Suboxone 8-2 mg Tab] 0.5 tab SL TID 04/21/23 Docusate Sodium 100Mg Capsule [Colace 100Mg Capsule] 100 mg PO BID PRN 04/21/23 Gabapentin [Neurontin] 300 mg PO TID PRN 04/21/23 Ibuprofen [Motrin] 600 mg PO Q6H PRN 04/21/23 Melatonin 10 mg PO QPM PRN 04/21/23 Multivitamin [Theragran] 1 each PO DAILY 04/21/23 Promethazine [Phenergan] 12.5 mg PO TID PRN 04/21/23 Vitamin B Complex 1 each PO DAILY 04/21/23 guaiFENesin [Chest Congestion Relief] 800 mg PO BID 04/21/23 hydrOXYzine pamoate [Hydroxyzine Pamoate] 50 mg PO Q6H PRN 04/21/23 methocarbamoL [Methocarbamol] 1,500 mg PO Q6H PRN 04/21/23 traZODone [Desyrel] 50 - 100 mg PO HS PRN 04/21/23
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
[2023-04-22] MEDS: PROCHLORPERAZINE 10 MG/2 ML VIAL IVP PRN (20:43)
[2023-04-22] MEDS ORDERED: QUEtiapine 25 MG TABLET PO SCH (21:00)
[2023-04-22] MEDS ORDERED: HALOPERIDOL 5 MG/ML VIAL IVP PRN (21:09)
[2023-04-22 22:10] LABS: CALCIUM, IONIZED 1.09 mmol/L (1.15-1.33); VBG PH 7.486 (7.31-7.41)
--- NOTE | 2023-04-22 22:18 | CT Report ---
PROCEDURE: HEAD WO INDICATIONS: Aphasia TECHNIQUE: Noncontrast 4.5 mm thick angled axial sections acquired from the foramen magnum to the vertex. For r adiation dose reduction, the following was used: automated exposure control, adjustment of mA and/or kV according to patient size. COMPARISON: None. FINDINGS: Image quality: Excellent. CSF spaces: Basal cisterns are patent. No extra-axial fluid collections. Ventricles are normal in size and shape. Brain: No midline shift. No intracranial masses or hemorrhage. Figueroa-white matter interface is norm al. Skull and face: Calvarium and visualized facial bones are intact, without suspicious lesions. Sinuses: Visualized sinuses and mastoids are clear. IMPRESSION: No acute intracranial pathology. This study was performed at approximately 2:00 in the afternoon today, but images only have just now become available for review and report dictation. Reviewed by: Catrachito Bazan MD on 04/22/2023 10:16 PM [facility] Approved by: Catrachito Bazan MD on 04/22/2023 10:16 PM [facility] Station ID: [id number]
[2023-04-23] MEDS ORDERED: CALCIUM GLUC 1,000MG/50ML-NACL 1,000 MG/50 ML BAG IV ONE (00:21)
[2023-04-23] MEDS: SODIUM CHLORIDE FLUSH 0.9% 10 ML SYRINGE IVP SCH ×3 (00:35→17:05)
[2023-04-23] MEDS: LORazepam 2 MG/ML VIAL IVP PRN (00:47)
[2023-04-23 05:38] LABS: BASOPHILS % (AUTO) 0.8 %; EOSINOPHILS # (AUTO) 0.2 10^3/uL (0.0-0.7); EOSINOPHILS % (AUTO) 4.2 %; HCT - HEMATOCRIT 30.9 % (37.0-47.0); HGB - HEMOGLOBIN 10.3 g/dL (12.0-16.0); LYMPHOCYTES # (AUTO) 0.9 10^3/uL (1.5-3.5); LYMPHOCYTES % (AUTO) 24.5 %; MEAN CORPUSCULAR HEMOGLOBIN 29.2 pg (27.0-31.0); MEAN CORPUSCULAR HGB CONC 33.3 g/dL (32.0-36.0); MEAN CORPUSCULAR VOLUME 87.5 fL (81.0-99.0); MONOCYTES # (AUTO) 0.4 10^3/uL (0.0-1.0); MONOCYTES % (AUTO) 11.5 %; NEUTROPHILS # (AUTO) 2.1 10^3/uL (1.5-6.6); NEUTROPHILS % (AUTO) 58.7 %; PLT - PLATELET COUNT 199 10^3/uL (130-450); RED BLOOD COUNT 3.53 10^6/uL (4.20-5.40); WHITE BLOOD COUNT 3.6 x10^3/uL (4.8-10.8)
[2023-04-23 05:57] LABS: MAGNESIUM 1.9 mg/dL (1.7-2.3)
[2023-04-23 06:07] LABS: CALCIUM 9.5 mg/dL (8.5-10.3); CREATININE 0.9 mg/dL (0.6-1.3); POTASSIUM 4.1 mmol/L (3.5-4.5)
[2023-04-23] MEDS: NS W/20 MEQ KCL 1,000 ML IV SCH (06:21)
[2023-04-23 07:52] LABS: PLATELET ESTIMATE, MANUAL NORMAL (130-450,000) (NORMAL); PLATELET MORPHOLOGY NORMAL APPEARANCE (NORMAL); RBC MORPHOLOGY (MULTIPLE) NORMAL APPEARANCE (NORMAL); WBC MORPHOLOGY (MULTIPLE) NORMAL APPEARANCE (NORMAL)
[2023-04-23 07:53] LABS: DIFFERENTIAL COMMENT MANUAL=AUTO DIFF
[2023-04-23] MEDS: BUPRENORPHINE/NALOXONE 8-2 MG TAB SL SCH ×3 (08:59→21:08)
[2023-04-23] MEDS: ENOXAPARIN 40 MG/0.4 ML SYRINGE SUBQ SCH (09:12)
[2023-04-23] MEDS: POTASSIUM CHLORIDE 10 MEQ CAPSULE PO SCH ×2 (09:13→21:07)
[2023-04-23] MEDS: NICOTINE 14 MG PATCH TOP SCH (09:13)
[2023-04-23 09:55] LABS: CALCIUM, IONIZED 1.15 mmol/L (1.15-1.33); VBG PH 7.482 (7.31-7.41)
[2023-04-23] MEDS: FOLIC ACID 1 MG TABLET PO SCH (10:59)
[2023-04-23] MEDS: THIAMINE 100 MG TABLET PO SCH (11:00)
[2023-04-23] MEDS: QUEtiapine 25 MG TABLET PO SCH ×2 (11:00→21:08)
--- NOTE | 2023-04-23 11:34 | PROVIDER PROGRESS NOTE ---
Assessment/Plan - Problem List (1) Acute hyponatremia Assessment/Plan: (1) Acute hyponatremia Conclusion/Plan: --Resolved. --IV fluids stopped. She is on a regular diet. (2) Hypokalemia Conclusion/Plan: --Resolved. (3) Altered mental status Conclusion/Plan: --No further episodes of aphasia. Her CTH was unremarkable. --Telepsych recommendations and note are in the chart. --She needs to be set up with a PCP and would benefit from a follow-up in person psychiatric consultation. --Will start her on Seroquel 25 mg BID for her agitation. (4) Fentanyl use disorder, moderate Conclusion/Plan: --History of an opioid use disorder. We will continue patient on her home Suboxone while inpatient. --Discussed with her treatment center. Will start her on 12 mg daily and monitor. --She is stable for discharge today, however no Suboxone clinics are open on the weekend. Anticipate discharge tomorrow. - Current Meds Current Meds: Current Medications Generic Name Dose Route Start Last Admin Trade Name Freq PRN Reason Stop Dose Admin Acetaminophen 650 mg 04/20/23 15:47 04/20/23 19:44 Acetaminophen 325 Mg Tablet PO 650 mg Q4HR PRN Administration Pain 1 to 4, or Fever Buprenorphine HCl 0.5 tab 04/20/23 22:00 04/23/23 08:59 Buprenorphine/Naloxone 8-2 Mg Tab SL Not Given TID NALINI Carboxymethylcellulose 1 drops 04/20/23 21:55 04/20/23 22:11 Carboxymethylcellulose Ophth Drops EACHEYE 1 drops PRN PRN Administration Dry Eye Enoxaparin Sodium 40 mg 04/21/23 09:00 04/23/23 09:12 Enoxaparin 40 Mg/0.4 Ml Syringe SUBQ Not Given DAILY NALINI Folic Acid 1 mg 04/23/23 12:00 04/23/23 10:59 Folic Acid 1 Mg Tablet PO 1 mg DAILY NALINI Administration Haloperidol 1 mg 04/22/23 21:09 04/22/23 21:30 Haloperidol 5 Mg/Ml Vial IVP 04/23/23 21:08 1 mg ONCE PRN Administration Agitation Loperamide HCl 2 mg 04/21/23 18:07 04/21/23 18:36 Loperamide 2 Mg Capsule PO 2 mg QID PRN Administration Diarrhea Lorazepam 2 mg 04/22/23 12:34 04/23/23 00:47 Lorazepam 2 Mg/Ml Vial IVP 2 mg Q4H PRN Administration Anxiety Nicotine 1 patch 04/21/23 10:00 04/23/23 09:13 Nicotine 14 Mg Patch TOP 1 patch DAILY NALINI Administration Ondansetron HCl 4 mg 04/20/23 15:47 04/21/23 09:17 Ondansetron Odt 4 Mg Tablet TL 4 mg Q6HR PRN Administration Nausea / Vomiting Ondansetron HCl 4 mg 04/21/23 15:13 04/21/23 15:25 Ondansetron 4 Mg/2 Ml Vial IVP 4 mg Q6HR PRN Administration Nausea / Vomiting Potassium Chloride 20 meq 04/21/23 21:00 04/23/23 09:13 Potassium Chloride 10 Meq Capsule PO 20 meq BID NALINI Administration Prochlorperazine Edisylate 10 mg 04/21/23 21:18 04/22/23 20:43 Prochlorperazine 10 Mg/2 Ml Vial IVP 10 mg Q6HR PRN Administration Nausea / Vomiting Quetiapine Fumarate 25 mg 04/23/23 11:00 04/23/23 11:00 Quetiapine 25 Mg Tablet PO 25 mg BID NALINI Administration Sodium Chloride 10 ml 04/20/23 15:47 04/22/23 20:43 Sodium Chloride Flush 0.9% 10 Ml Syringe IVP 10 ml PRN PRN Administration NEEDED PER PROVIDER ORDERS Sodium Chloride 10 ml 04/20/23 17:00 04/23/23 09:14 Sodium Chloride Flush 0.9% 10 Ml Syringe IVP 10 ml 0100,0900,1700 NALINI Administration Thiamine HCl 100 mg 04/23/23 12:00 04/23/23 11:00 Thiamine 100 Mg Tablet PO 100 mg DAILY NALINI Administration - Lab Result Fish Bone Diagrams: 04/23/23 04:35 04/23/23 04:35 - Additional Planning Condition/Complexity: Stable My Orders: My Active Orders 04/22/23 12:34 LORazepam INJ [Ativan Inj (Vial)] 2 mg IVP Q4H PRN 04/23/23 11:00 QUEtiapine [SEROquel] 25 mg PO BID 04/23/23 Lunch Regular Diet [DIET] 04/23/23 12:00 Folic Acid 1 mg PO DAILY Thiamine [Vitamin B-1] 100 mg PO DAILY 04/24/23 05:00 BMP - BASIC METABOLIC PANEL [CHEM] DAILYLAB CBC [CBC - COMP BLD CT W/AUTO DIFF] [HEME] DAILYLAB MAGNESIUM [CHEM] DAILYLAB 04/25/23 05:00 BMP - BASIC METABOLIC PANEL [CHEM] DAILYLAB CBC [CBC - COMP BLD CT W/AUTO DIFF] [HEME] DAILYLAB MAGNESIUM [CHEM] DAILYLAB Plan Discussed with:: Patient Subjective - Subjective Patient Reports: Feeling Better, Resting Comfortably, No Complaints Objective Vital Signs: Vital Signs - 24 hr 04/22/23 04/22/23 04/22/23 12:00 13:00 14:00 Temperature 36.8 C Heart Rate [ 90 94 111 H Brachial] Heart Rate [ Monitoring electrodes] Respiratory 14 16 15 Rate Blood Pressure 150/99 H 112/74 128/93 H [Right Brachial artery] O2 Saturation 99 100 99 04/22/23 04/22/23 04/22/23 15:00 16:00 17:00 Temperature 36.8 C Heart Rate [ 104 H 102 H 105 H Brachial] Heart Rate [ Monitoring electrodes] Respiratory 14 14 16 Rate Blood Pressure 125/93 H 128/94 H 145/114 H [Right Brachial artery] O2 Saturation 100 100 04/22/23 04/22/23 04/22/23 18:00 19:00 20:00 Temperature 37.0 C Heart Rate [ 99 107 H 95 Brachial] Heart Rate [ Monitoring electrodes] Respiratory 16 16 12 Rate Blood Pressure 128/89 H 140/92 H 123/89 H [Right Brachial artery] O2 Saturation 99 97 04/22/23 04/22/23 04/22/23 21:00 22:00 23:00 Temperature 37 C Heart Rate [ 102 H 88 102 H Brachial] Heart Rate [ Monitoring electrodes] Respiratory 19 15 17 Rate Blood Pressure 136/96 H 136/96 H 107/66 [Right Brachial artery] O2 Saturation 99 04/23/23 04/23/23 04/23/23 00:00 01:00 02:00 Temperature 36.5 C Heart Rate [ 102 H 102 H Brachial] Heart Rate [ 103 H Monitoring electrodes] Respiratory 16 17 17 Rate Blood Pressure 103/71 114/73 106/72 [Right Brachial artery] O2 Saturation 96 96 94 04/23/23 04/23/23 04/23/23 03:00 04:00 05:00 Temperature Heart Rate [ Brachial] Heart Rate [ 93 91 92 Monitoring electrodes] Respiratory 18 14 15 Rate Blood Pressure 114/75 115/70 98/61 [Right Brachial artery] O2 Saturation 04/23/23 04/23/23 04/23/23 06:00 07:00 08:52 Temperature 36.4 C L 37 C Heart Rate [ Brachial] Heart Rate [ 91 90 110 H Monitoring electrodes] Respiratory 17 16 15 Rate Blood Pressure 94/57 L 95/58 L 135/82 H [Right Brachial artery] O2 Saturation 94 95 98 Oxygen O2 Source Room air I&O (Last 24 Hrs): Intake and Output Totals x24h 04/21/23 04/22/23 04/23/23 23:59 23:59 23:59 Intake Total 6396.042 4838.385 1631.2 Output Total 1550 2200 350 Balance 4846.042 2638.385 1281.2 General: Alert, Oriented x3, Cooperative, No acute distress Neuro: Alert, CN 2-12 Grossly Intact, Oriented Times 3 Cardiovascular: Normal S1, Normal S2, No murmurs Respiratory: Chest non-tender, No respiratory distress, Breath sounds nml Abdomen: Normal bowel sounds, Soft Extremities: No clubbing, No cyanosis, No edema, Normal pulses, No tenderness/ swelling - Results Results: Laboratory Results WBC 3.6 x10^3/uL (4.8-10.8) L 04/23/23 04:35 RBC 3.53 10^6/uL (4.20-5.40) L 04/23/23 04:35 Hgb 10.3 g/dL (12.0-16.0) L 04/23/23 04:35 Hct 30.9 % (37.0-47.0) L 04/23/23 04:35 MCV 87.5 fL (81.0-99.0) 04/23/23 04:35 MCH 29.2 pg (27.0-31.0) 04/23/23 04:35 MCHC 33.3 g/dL (32.0-36.0) 04/23/23 04:35 RDW 15.0 % (12.0-15.0) 04/23/23 04:35 Plt Count 199 10^3/uL (130-450) 04/23/23 04:35 MPV 11.0 fL (7.9-10.8) H 04/23/23 04:35 Neut # (Auto) 2.1 10^3/uL (1.5-6.6) 04/23/23 04:35 Lymph # (Auto) 0.9 10^3/uL (1.5-3.5) L 04/23/23 04:35 [place] # (Auto) 0.4 10^3/uL (0.0-1.0) 04/23/23 04:35 Eos # (Auto) 0.2 10^3/uL (0.0-0.7) 04/23/23 04:35 Baso # (Auto) 0.0 10^3/uL (0.0-0.1) 04/23/23 04:35 Absolute Nucleated RBC 0.00 x10^3/uL 04/23/23 04:35 Total Counted CASING MATERIAL WEIGHER 04/23/23 04:35 Band Neuts % (Manual) Not Reportable 04/23/23 04:35 Abnorm Lymph % (Manual) Not Reportable 04/23/23 04:35 Nucleated RBC % 0.0 /100WBC 04/23/23 04:35 Neutrophils # (Manual) Not Reportable 04/23/23 04:35 Lymphocytes # (Manual) Not Reportable 04/23/23 04:35 Monocytes # (Manual) Not Reportable 04/23/23 04:35 Eosinophils # (Manual) Not Reportable 04/23/23 04:35 Basophils # (Manual) Not Reportable 04/23/23 04:35 Differential Comment MANUAL=AUTO DIFF 04/23/23 04:35 WBC Morphology NORMAL APPEARANCE (NORMAL) 04/23/23 04:35 Platelet Estimate NORMAL (130-450,000) (NORMAL) 04/23/23 04:35 Platelet Morphology NORMAL APPEARANCE (NORMAL) 04/23/23 04:35 RBC Morph Micro Appear NORMAL APPEARANCE (NORMAL) 04/23/23 04:35 VBG pH 7.482 (7.31-7.41) H 04/23/23 09:46 VBG pCO2 64.1 mmHg (41-51) H 04/20/23 10:40 VBG pO2 25.4 mmHg (25-47) 04/20/23 10:40 VBG HCO3 43.8 mmol/L (23-28) H 04/20/23 10:40 VBG Total CO2 45.7 mmol/L (24-29) H 04/20/23 10:40 VBG O2 Saturation 52.8 % (60-80) L 04/20/23 10:40 VBG Base Excess 16.5 mmol/L (-2 - +2) H 04/20/23 10:40 Ionized Calcium 1.15 mmol/L (1.15-1.33) 04/23/23 09:46 Sodium 138 mmol/L (135-145) 04/23/23 04:35 Potassium 4.1 mmol/L (3.5-4.5) 04/23/23 04:35 Chloride 103 mmol/L (101-111) 04/23/23 04:35 Carbon Dioxide 30 mmol/L (21-32) 04/23/23 04:35 Anion Gap 5.0 (6-13) L 04/23/23 04:35 BUN 5 mg/dL (6-20) L 04/23/23 04:35 Creatinine 0.9 mg/dL (0.6-1.3) 04/23/23 04:35 Estimated GFR (MDRD) 73 (>89) L 04/23/23 04:35 Glucose 80 mg/dL (74-104) 04/23/23 04:35 Calcium 9.5 mg/dL (8.5-10.3) 04/23/23 04:35 Phosphorus 2.9 mg/dL (2.5-5.0) 04/23/23 04:35 Magnesium 1.9 mg/dL (1.7-2.3) 04/23/23 04:35 Total Bilirubin 0.4 mg/dL (0.2-1.0) 04/22/23 12:04 AST 21 IU/L (10-42) 04/22/23 12:04 ALT 10 IU/L (10-60) 04/22/23 12:04 Alkaline Phosphatase 51 IU/L (42-121) 04/22/23 12:04 Ammonia 32.3 umol/L (18-72) 04/22/23 13:25 Total Protein 6.4 g/dL (6.4-8.9) 04/22/23 12:04 Albumin 4.1 g/dL (3.2-5.5) 04/22/23 12:04 Globulin 2.3 g/dL (2.1-4.2) 04/22/23 12:04 Albumin/Globulin Ratio 1.8 (1.0-2.2) 04/22/23 12:04 Lipase 68 U/L (11-82) 04/20/23 09:23 Vitamin B12 720 pg/mL (180-914) 04/22/23 12:04 Folate 12.0 ng/mL (5.90 - >24.8) 04/22/23 12:04 TSH 1.75 uIU/mL (0.34-5.60) 04/22/23 12:04 Urine Color YELLOW 04/22/23 15:00 Urine Clarity CLEAR (CLEAR) 04/22/23 15:00 Urine pH 7.0 PH (5.0-7.5) 04/22/23 15:00 Ur Specific [place] 1.010 (1.002-1.030) 04/22/23 15:00 Urine Protein NEGATIVE mg/dL (NEGATIVE) 04/22/23 15:00 Urine Glucose (UA) NEGATIVE mg/dL (NEGATIVE) 04/22/23 15:00 Urine Ketones NEGATIVE mg/dL (NEGATIVE) 04/22/23 15:00 Urine Occult Blood NEGATIVE (NEGATIVE) 04/22/23 15:00 Urine Nitrite NEGATIVE (NEGATIVE) 04/22/23 15:00 Urine Bilirubin NEGATIVE (NEGATIVE) 04/22/23 15:00 Urine Urobilinogen 0.2 (NORMAL) E.U./dL (NORMAL) 04/22/23 15:00 Ur Leukocyte Esterase NEGATIVE (NEGATIVE) 04/22/23 15:00 Ur Microscopic Review NOT INDICATED 04/22/23 15:00 Urine Culture Comments NOT INDICATED 04/22/23 15:00 Urine HCG, Qual NEGATIVE 04/20/23 11:43 Nasal Adenovirus (PCR) NOT DETECTED 04/20/23 09:54 Nasal B. parapertussis DNA (PCR) NOT DETECTED 04/20/23 09:54 Nasal Coronavir 229E PCR NOT DETECTED 04/20/23 09:54 Nasal Coronavir HKU1 PCR NOT DETECTED 04/20/23 09:54 Nasal Coronavir NL63 PCR NOT DETECTED 04/20/23 09:54 Nasal Coronavir OC43 PCR NOT DETECTED 04/20/23 09:54 Nasal Enterovir/Rhinovir PCR NOT DETECTED 04/20/23 09:54 Nasal Influenza B PCR NOT DETECTED 04/20/23 09:54 Nasal Influenza A PCR NOT DETECTED 04/20/23 09:54 Nasal Parainfluen 1 PCR NOT DETECTED 11 09:54 Nasal Parainfluen 2 PCR NOT DETECTED 04/20/23 09:54 Nasal Parainfluen 3 PCR NOT DETECTED 04/20/23 09:54 Nasal Parainfluen 4 PCR NOT DETECTED 04/20/23 09:54 Nasal RSV (PCR) NOT DETECTED 04/20/23 09:54 Nasal Screen MRSA (PCR) NEGATIVE (NEGATIVE) 04/20/23 23:15 Nasal B.pertussis DNA PCR NOT DETECTED 04/20/23 09:54 Nasal C.pneumoniae (PCR) NOT DETECTED 04/20/23 09:54 Oziel Human Metapneumo PCR NOT DETECTED 04/20/23 09:54 Nasal M.pneumoniae (PCR) NOT DETECTED 04/20/23 09:54 Nasal SARS-CoV-2 (PCR) NOT DETECTED 04/20/23 09:54 Salicylates < 1.5 mg/dL 04/20/23 09:23 Urine Opiates Screen NEGATIVE (NEGATIVE) 04/20/23 11:43 Ur Oxycodone Screen NEGATIVE (NEGATIVE) 04/20/23 11:43 Urine Methadone Screen NEGATIVE (NEGATIVE) 04/20/23 11:43 Ur Propoxyphene Screen NEGATIVE (NEGATIVE) 04/20/23 11:43 Acetaminophen 0.2 ug/mL 04/20/23 09:23 Ur Barbiturates Screen NEGATIVE (NEGATIVE) 04/20/23 11:43 Ur Tricyclics Screen NEGATIVE (NEGATIVE) 04/20/23 11:43 Ur Phencyclidine Scrn NEGATIVE (NEGATIVE) 04/20/23 11:43 Ur Amphetamine Screen NEGATIVE (NEGATIVE) 04/20/23 11:43 U Methamphetamines Scrn NEGATIVE (NEGATIVE) 04/20/23 11:43 U Benzodiazepines Scrn NEGATIVE (NEGATIVE) 04/20/23 11:43 Urine Cocaine Screen NEGATIVE (NEGATIVE) 04/20/23 11:43 U Cannabinoids Screen NEGATIVE (NEGATIVE) 04/20/23 11:43 Ethyl Alcohol < 10.0 mg/dL 04/20/23 09:23 Sepsis Event Note (H) - Evaluation Current Stage of Sepsis: Ruled out Current Medications - Current Medications Current Medications: Active Medications Generic Name Dose Route Start Last Admin Trade Name Freq PRN Reason Stop Dose Admin Acetaminophen 650 mg 04/20/23 15:47 04/20/23 19:44 Acetaminophen 325 Mg Tablet PO 650 mg Q4HR PRN Administration Pain 1 to 4, or Fever Buprenorphine HCl 0.5 tab 04/20/23 22:00 04/23/23 08:59 Buprenorphine/Naloxone 8-2 Mg Tab SL Not Given TID NALINI Carboxymethylcellulose 1 drops 04/20/23 21:55 04/20/23 22:11 Carboxymethylcellulose Ophth Drops EACHEYE 1 drops PRN PRN Administration Dry Eye Enoxaparin Sodium 40 mg 04/21/23 09:00 04/23/23 09:12 Enoxaparin 40 Mg/0.4 Ml Syringe SUBQ Not Given DAILY NALINI Folic Acid 1 mg 04/23/23 12:00 04/23/23 10:59 Folic Acid 1 Mg Tablet PO 1 mg DAILY NALINI Administration Haloperidol 1 mg 04/22/23 21:09 04/22/23 21:30 Haloperidol 5 Mg/Ml Vial IVP 04/23/23 21:08 1 mg ONCE PRN Administration Agitation Loperamide HCl 2 mg 04/21/23 18:07 04/21/23 18:36 Loperamide 2 Mg Capsule PO 2 mg QID PRN Administration Diarrhea Lorazepam 2 mg 04/22/23 12:34 04/23/23 00:47 Lorazepam 2 Mg/Ml Vial IVP 2 mg Q4H PRN Administration Anxiety Nicotine 1 patch 04/21/23 10:00 04/23/23 09:13 Nicotine 14 Mg Patch TOP 1 patch DAILY NALINI Administration Ondansetron HCl 4 mg 04/20/23 15:47 04/21/23 09:17 Ondansetron Odt 4 Mg Tablet TL 4 mg Q6HR PRN Administration Nausea / Vomiting Ondansetron HCl 4 mg 04/21/23 15:13 04/21/23 15:25 Ondansetron 4 Mg/2 Ml Vial IVP 4 mg Q6HR PRN Administration Nausea / Vomiting Potassium Chloride 20 meq 04/21/23 21:00 04/23/23 09:13 Potassium Chloride 10 Meq Capsule PO 20 meq BID NALINI Administration Prochlorperazine Edisylate 10 mg 04/21/23 21:18 04/22/23 20:43 Prochlorperazine 10 Mg/2 Ml Vial IVP 10 mg Q6HR PRN Administration Nausea / Vomiting Quetiapine Fumarate 25 mg 04/23/23 11:00 04/23/23 11:00 Quetiapine 25 Mg Tablet PO 25 mg BID NALINI Administration Sodium Chloride 10 ml 04/20/23 15:47 04/22/23 20:43 Sodium Chloride Flush 0.9% 10 Ml Syringe IVP 10 ml PRN PRN Administration NEEDED PER PROVIDER ORDERS Sodium Chloride 10 ml 04/20/23 17:00 04/23/23 09:14 Sodium Chloride Flush 0.9% 10 Ml Syringe IVP 10 ml 0100,0900,1700 NALINI Administration Thiamine HCl 100 mg 04/23/23 12:00 04/23/23 11:00 Thiamine 100 Mg Tablet PO 100 mg DAILY NALINI Administration Acetaminophen [Tylenol] 1,000 mg PO Q6H PRN 04/21/23 Buprenorphine HCl/Naloxone HCl [Suboxone 8-2 mg Tab] 0.5 tab SL TID 04/21/23 Docusate Sodium 100Mg Capsule [Colace 100Mg Capsule] 100 mg PO BID PRN 04/21/23 Gabapentin [Neurontin] 300 mg PO TID PRN 04/21/23 Ibuprofen [Motrin] 600 mg PO Q6H PRN 04/21/23 Multivitamin [Theragran] 1 each PO DAILY 04/21/23 Promethazine [Phenergan] 12.5 mg PO TID PRN 04/21/23 RX: Melatonin 10 mg PO QPM PRN 04/21/23 RX: Vitamin B Complex 1 each PO DAILY 04/21/23 guaiFENesin [Chest Congestion Relief] 800 mg PO BID 04/21/23 hydrOXYzine pamoate [Hydroxyzine Pamoate] 50 mg PO Q6H PRN 04/21/23 methocarbamoL [Methocarbamol] 1,500 mg PO Q6H PRN 04/21/23 traZODone [Desyrel] 50 - 100 mg PO HS PRN 04/21/23
[2023-04-24] MEDS: SODIUM CHLORIDE FLUSH 0.9% 10 ML SYRINGE IVP SCH ×2 (00:04→10:02)
[2023-04-24] MEDS: BUPRENORPHINE/NALOXONE 8-2 MG TAB SL SCH ×2 (05:17→14:15)
[2023-04-24 05:32] LABS: BASOPHILS % (AUTO) 1.1 %; EOSINOPHILS # (AUTO) 0.2 10^3/uL (0.0-0.7); EOSINOPHILS % (AUTO) 6.9 %; HCT - HEMATOCRIT 29.3 % (37.0-47.0); HGB - HEMOGLOBIN 9.8 g/dL (12.0-16.0); LYMPHOCYTES # (AUTO) 0.9 10^3/uL (1.5-3.5); LYMPHOCYTES % (AUTO) 32.5 %; MEAN CORPUSCULAR HEMOGLOBIN 29.9 pg (27.0-31.0); MEAN CORPUSCULAR HGB CONC 33.4 g/dL (32.0-36.0); MEAN CORPUSCULAR VOLUME 89.3 fL (81.0-99.0); MEAN PLATELET VOLUME 8.4 fL (7.9-10.8); MONOCYTES # (AUTO) 0.3 10^3/uL (0.0-1.0); MONOCYTES % (AUTO) 12.4 %; NEUTROPHILS # (AUTO) 1.3 10^3/uL (1.5-6.6); NEUTROPHILS % (AUTO) 47.1 %; PLT - PLATELET COUNT 341 10^3/uL (130-450); RED BLOOD COUNT 3.28 10^6/uL (4.20-5.40); RED CELL DISTRIBUTION WIDTH 15.6 % (12.0-15.0); WHITE BLOOD COUNT 2.7 x10^3/uL (4.8-10.8)
[2023-04-24 07:05] LABS: CALCIUM 8.8 mg/dL (8.5-10.3); MAGNESIUM 1.3 mg/dL (1.7-2.3); POTASSIUM 4.1 mmol/L (3.5-4.5)
[2023-04-24] MEDS: POTASSIUM CHLORIDE 10 MEQ CAPSULE PO SCH (10:02)
[2023-04-24] MEDS: QUEtiapine 25 MG TABLET PO SCH (10:02)
[2023-04-24] MEDS: ENOXAPARIN 40 MG/0.4 ML SYRINGE SUBQ SCH (10:02)
[2023-04-24] MEDS: NICOTINE 14 MG PATCH TOP SCH (10:02)
[2023-04-24] MEDS: FOLIC ACID 1 MG TABLET PO SCH (10:02)
[2023-04-24] MEDS: THIAMINE 100 MG TABLET PO SCH (10:02)
[2023-04-24] MEDS ORDERED: MAGNESIUM SULFATE 2 GRAM 2 GM/50 ML BAG IV ONE (10:30)
--- NOTE | 2023-04-24 10:33 | Discharge Plan ---
Discharge Plan Problem Reviewed?: Yes Disposition: Home, Self Care Condition: Stable Prescriptions: Buprenorphine HCl/Naloxone HCl [Suboxone 8-2 mg Tab] 0.5 tab SL TID 7 Days #10 tab Diet: Regular Activity Restrictions: Activity as Tolerated Instruction Topics: Buprenorphine sublingual tablets Plan of Treatment: Will have patient follow up with Primary Care Provider for further care. No Smoking: If you smoke, Please STOP! Call for help.
[2023-04-24 11:58] VITALS: BP 128/81; O2SAT 97
--- NOTE | 2023-04-24 14:13 | DISCHARGE SUMMARY ---
"Discharge Summary Discharge Date: 04/24/23 Discharging Provider: Faith Wang Primary Care Provider: Alexus PCP Code Status: Attempt Resuscitation Condition at Discharge: Good Discharge Disposition: 01 Home, Self Care - DIAGNOSES Discharge Diagnoses with Status of Each Condition: (1) Acute hyponatremia Conclusion/Plan: --Resolved. (2) Hypokalemia Conclusion/Plan: --Resolved. (3) Altered mental status Conclusion/Plan: --Resolved. --No further episodes of aphasia. Her CTH was unremarkable. --Telepsych recommendations and note are in the chart. --She needs to be set up with a PCP and would benefit from a follow-up in person psychiatric consultation. (4) Fentanyl use disorder, moderate Conclusion/Plan: --Discharged on Suboxone 12 mg TID for 7 days. She was provided resources for Suboxone clinics. - HPI History of Present Illness: Patient is a 33-year-old female with past medical history of opioid use disorder currently on Suboxone, alcohol abuse who presented to the ED after sustaining a fall at her alcohol treatment center. Patient is reportedly established with a substance abuse clinic where she receives Suboxone. In the ED she was noted to have a sodium of 118, potassium 2.4, and bicarb greater than 45. Patient also was quite lethargic and confused initially. The emergency room physician discussed the case with nephrology at [facility] who recommended 3% sodium chloride. She was given a 50 mL bag which improved her sodium to 126. CT head was performed which was unremarkable. During my evaluation, patient was alert and oriented x3. She was unsteady in her gait. No seizure-like activity was noted. She appears neurologically stable. - CONSULTS | PROCEDURES Consultations: Telepsych - HOSPITAL COURSE Hospital Course: Patient is a 33-year-old female who presented to the ED from [facility] after sustaining a fall. In the ED she was noted to have a sodium of 118 and was admitted for hyponatremia. She also had severe metabolic alkalosis due to hypochloremia. Patient was also severely hypokalemic. She did not exhibit any neurologic deficits or seizures on admission. Virtually no etiology of her hyponatremia was uncovered as she was not on any medications which would promote SIADH nor did she exhibit signs of polygenic polydipsia. Labs could not be obtained as she had already received fluids. Patient was initially started on 3% saline however overcorrected. She was then given DDAVP and her sodium was gradually increased over the next 72 hours until it was normal. Hospital course was complicated by an episode where she became aphasic with occasional rare jerking movements. She also did not follow direction during this episode but would stare blankly. This lasted approximately 6 hours. It immediately resolved after administration of Ativan. She was eval by telemetry psych who attributed this to hospital delirium. A CT head was unremarkable. As her mental status and neurologic has remained stable overnight she was discharged with 7 days of Suboxone. Patient was provided resources for Suboxone clinics and local PCPs. I did encourage her to establish care with a PCP for further work-up of an underlying psychiatric or neurologic disorder. I believe she would benefit from an outpatient EEG and a formal in person psychiatric evaluation. I did not discharge her on seizure medication as I felt her seizure-like activity could be attributed to her numerous metabolic derangements. - ALLERGIES Allergies/Adverse Reactions: Allergies Allergy/AdvReac Type Severity Reaction Status Date / Time oxycodone Allergy Unknown Verified 04/20/23 09:04 Penicillins Allergy Unknown Verified 04/20/23 09:04 Skittles Allergy Hives Verified 04/20/23 09:04 - MEDICATIONS Home Medications: Ambulatory Orders Medication Instructions Recorded Confirmed Acetaminophen [Tylenol] 1,000 mg PO Q6H PRN 04/21/23 04/21/23 Docusate Sodium 100Mg Capsule 100 mg PO BID PRN 04/21/23 04/21/23 [Colace 100Mg Capsule] Ibuprofen [Motrin] 600 mg PO Q6H PRN 04/21/23 04/21/23 Melatonin 10 mg PO QPM PRN 04/21/23 04/21/23 Multivitamin [Theragran] 1 each PO DAILY 04/21/23 04/21/23 Vitamin B Complex 1 each PO DAILY 04/21/23 04/21/23 guaiFENesin [Chest Congestion 800 mg PO BID 04/21/23 04/21/23 Relief] methocarbamoL [Methocarbamol] 1,500 mg PO Q6H PRN 04/21/23 04/21/23 traZODone [Desyrel] 50 - 100 mg PO HS PRN 04/21/23 04/21/23 Buprenorphine HCl/Naloxone HCl 0.5 tab SL TID 7 Days #10 tab 04/24/23 [Suboxone 8-2 mg Tab] - PHYSICAL EXAM AT DISCHARGE General Appearance: positive: No acute distress, Alert, Mild distress Eyes Bilateral: positive: Normal inspection Respiratory: positive: Chest non-tender, No respiratory distress, Breath sounds nml Cardiovascular: positive: Regular rate & rhythm, No murmur, No gallop Abdomen: positive: Non-tender, No organomegaly, Nml bowel sounds Skin: positive: Color nml, No rash, Warm Extremities: positive: Non-tender, Full ROM, Nml appearance Neurologic/Psychiatric: positive: Oriented x3, CN's nml (2-12), Motor nml, Sensation nml, Mood/affect nml - LABS Result Diagrams: 04/24/23 04:57 04/24/23 04:57 - SEPSIS Current Stage of Sepsis: Ruled out - FOLLOW UP Follow Up: Patient will need to establish care with a PCP and follow-up with a Suboxone clinic. She was given resources. - TIME SPENT Time Spent in Discharge (Minutes): 35"
[2023-04-24] MEDS ORDERED: MAGNESIUM OXIDE 400 MG TABLET PO SCH (15:00)
== END 2023-04-24 14:33 | disposition home or self-care (01) | DRG 641 ==
LOC: EDUNIT# → ED 08:47 → MS3 15:47 → MS2 15:47 → UNDOADMIN 15:47 → MS2 18:44 → ICU 18:44 → MS2 04-23 14:57 → UNDOADMIN 04-23 14:57 → MS2 04-23 16:10 → ICU 04-23 16:10 → UNDODISIN 04-24 14:33
PROVIDERS: ADMIT Family Medicine; ATTEND Family Medicine
DX: E87.1 Hypo-osmolality and hyponatremia (principal); R47.01 Aphasia; G93.40 Encephalopathy, unspecified; F11.20 Opioid dependence, uncomplicated; E87.6 Hypokalemia; R26.81 Unsteadiness on feet; E87.8 Other disorders of electrolyte and fluid balance, not elsewhere classified; E87.3 Alkalosis; G25.3 Myoclonus; R53.1 Weakness; F17.200 Nicotine dependence, unspecified, uncomplicated; N18.9 Chronic kidney disease, unspecified; Z91.81 History of falling; F10.10 Alcohol abuse, uncomplicated; F41.9 Anxiety disorder, unspecified
CPT/HCPCS: 36415; 70450; 80048; 80053; 80306; 80307; 80320; 80329; 81003; 81025; 82140; 82330; 82607; 82746; 82803; 83690; 83735; 84100; 84132; 84295; 84443; 85025; 87150; 87633; 96365; 96366; 99285; 99291; A9270; J1200; J1650; J2060; J2597; J3411; J7040; J7120; Q0162; 81001; 87086